=== PATIENT | female | born 1935 | race Caucasian/White ===

== ENCOUNTER 2018-07-13 06:40 | Observation (INO) | payer OTHER ==
[2018-07-13 07:37] LABS: Protime INR 1.15
--- NOTE | 2018-07-13 07:56 | EKG ---
Test Date: 2018-07-13 Test Time: 07:42:02 Blocker Polishing: TEQUILA MEASUREMENT RESULTS: Intervals: Rate: 63 CT: 128 QRSD: 90 QT: 380 QTc: 388 [place]: P: 68 CT: 128 QRS: 45 T: 87 INTERPRETIVE STATEMENTS: Normal sinus rhythm Possible Left atrial enlargement Left ventricular hypertrophy with repolarization abnormality Abnormal ECG Compared to ECG 09/12/2017 06:01:02 No significant changes Electronically Signed On 07-13-18 07:55:23 TSA SCREENER by Anjel Samuel
[2018-07-13 08:08] LABS: Absolute Lymphocytes (CBC) 0.8 K/uL (0.7-4.9); Absolute Monocytes 0.5 K/uL (0.1-1.3); Absolute Neutrophil 6.2 K/uL (1.8-8.0); Basophils % 0.6 % (0-1.3); Eosinophils % 1.6 % (0-4.4); Hematocrit 37.9 % (36.0-45.0); Lymphocytes % 10.5 % (15.3-44.8); MPV 9.4 fL (7.6-11.3); Monocytes % 6.2 % (3.3-12.3)
[2018-07-13] MEDS ORDERED: METOPROLOL TARTRATE 5 MG/5 ML INJ IV ONE (08:11)
[2018-07-13 08:15] LABS: Urine Bacteria <20 /HPF (<20); Urine Culture Reflex Order NOT NEEDED; Urine Mucus 1+ /HPF (NONE SEEN); Urine RBC <5 /HPF (NONE SEEN)
[2018-07-13 08:19] LABS: Albumin 3.9 g/dL (3.4-5.0); Bilirubin Direct 0.2 mg/dL (0-0.2); Bilirubin Total 0.6 mg/dL (0.2-1.0); Magnesium 1.8 mg/dL (1.8-2.4); Potassium 3.8 mmol/L (3.5-5.1); Protein, Total 7.4 g/dL (6.4-8.2); Troponin (Emerg Dept Use Only) 0.09 ng/mL (0.0-0.045)
--- NOTE | 2018-07-13 08:52 | RAD REPORT ---
EXAM DESCRIPTION: RAD - Chest Single View - 07/13/2018 7:25 am CLINICAL HISTORY: Abdominal pain, cough COMPARISON: September 2017 TECHNIQUE: AP portable chest image was obtained 0715 hours . FINDINGS: Chronic interstitial lung disease is present. Findings are more prominent in the left base . No convincing evidence for pneumonia. Heart and vasculature are normal. No measurable pleural effus ion and no pneumothorax. No acute bony abnormality seen. No acute aortic findings suspected. IMPRESSION: Chronic interstitial lung disease similar to comparison. No acute chest finding seen.
--- NOTE | 2018-07-13 09:06 | RAD REPORT ---
EXAM DESCRIPTION: CT - Angio Aorta For Dissection - 07/13/2018 8:41 am CLINICAL HISTORY: Abdominal pain, abdominal distention, chest pain, productive cough COMPARISON: Chest films same date, CT abdomen and pelvis September 2017 TECHNIQUE: Dynamically enhanced 3 mm thick images of the chest, abdomen, and upper pelvis were obtai telma during administration of approximately 150mL Isovue 370 IV contrast. Sagittal and coronal reconst ruction images were generated using MIP and reviewed. Exam utilizes a protocol to evaluate entire cou rse of the aorta. All CT scans are performed using dose optimization technique as appropriate and may include automated exposure control or mA/KV adjustment according to patient size. FINDINGS: Aorta is normal in diameter with no dissection or other acute aortic findings. Reconstruct ion images show no significant findings. Aortic atherosclerotic calcifications are present without si gnificant luminal narrowing. No displaced calcifications. No periaortic mass or lymphadenopathy seen. Pulmonary arteries are normal as well. No cardiomegaly, pericardial thickening or pericardial effusio n. Scarring changes are present in the lung parenchyma. Interstitial markings are minimally prominent. T here is bronchial wall thickening present throughout the chest. This is worse in each lung base. No b ronchial occlusion or intraluminal mass identifiable. Minimal pleural calcification noted. No pleural based mass. A few small areas of alveolar nodular opacification present in the lower lung delacruz. No abnormal mediastinal or hilar mass or lymphadenopathy seen. No chest wall mass or abnormal axillar y lymphadenopathy. Single renal artery supply each kidney. Atherosclerotic calcifications are present without significan t luminal narrowing. Atherosclerotic changes cause approximately 50% stenosis at the celiac artery or igin. No stenosis of the superior mesenteric artery seen. Inferior mesenteric artery is patent. The mid and upper thoracic esophagus appears thickened. No asymmetric or focal mass seen. CT imaging is limited in assessment. The liver, spleen and pancreas show no acute or suspicious findings. Cholecystectomy clips are presen t. Biliary tree is not outside of normal range for a post cholecystectomy patient. A 16 millimeter lo w-density left adrenal mass does not meet strict adenoma criteria. However, size has not changed in 1 0 months since the September 2017 study. Minimal nodularity of the right adrenal gland also stable. Renal function is symmetric. There is no hydronephrosis or pyelonephritis. In the medial upper pole r ight kidney there is a lobulated heterogeneous 2.7 centimeter mass. This shows low-density attenuatio n as well as enhancement. This area is isodense on the earlier CT study. Findings are suspicious for a renal cell carcinoma. No acute bowel finding. Urinary bladder is contracted around a Fulton catheter. Calcified uterine fibr oids are present. No suspicious ovarian finding. No free air, free fluid or inflammatory stranding. Prominent disc and bony degenerative changes are present. No pathologic bone process seen. IMPRESSION: Heterogeneous enhancing 2.7 centimeter mass upper pole right kidney suspicious for renal cell carcinoma. Aortic atherosclerotic calcifications without aneurysm, dissection or acute aortic finding. No pulmon santo artery abnormality. Bronchitis findings are present with very minimal pneumonitis or alveolitis findings in the lower roxana g delacruz. Circumferential wall thickening of the upper and midthoracic esophagus without clearly defined mass. CT imaging is limited in assessment of the esophagus. Stable small adrenal mass most likely an incidental adenoma. No other significant findings on chest, abdomen and upper pelvis examination.
[2018-07-13] MEDS ORDERED: IPRATROPIUM BROM 0.5MG/2.5ML ONE (09:29)
[2018-07-13] MEDS ORDERED: NA CHLORIDE 0.9% 1,000 ML ONE (09:29)
[2018-07-13] MEDS ORDERED: HYDRALAZINE HCL 20 MG/ML VIAL ONE (09:29)
[2018-07-13] MEDS ORDERED: ALBUTEROL 2.5 MG/3 ML NEB SOL ONE (09:29)
[2018-07-13] MEDS ORDERED: ENOXAPARIN 60 MG/0.6 ML SQ ONE (09:55)
--- NOTE | 2018-07-13 10:06 | ER ---
Nurse's Notes [facility] Name: Heidy Saucedo Age: 83 yrs Sex: Female : 1935 Arrival Date: 07/13/2018 Time: 06:45 Bed 4 Private MD: Diagnosis: Essential (primary) hypertension;Right renal mass;Bronchitis, not specified as acute or chronic;Renal Insufficiency;Elevated troponin Presentation: 07/13 06:56 Presenting complaint: daughter states last night pt was vomiting up mucous and became bb anxious then her blood pressure went up they called EMS and had her checked and was told her vital signs were normal but this morning she started having abdominal pain, bad gas, sore throat and diarrhea and her blood pressure is high again. Transition of care: patient was not received from another setting of care. Onset of symptoms was July 12, 2018. Risk Assessment: Do you want to hurt yourself or someone else? Patient reports no desire to harm self or others. Initial Sepsis Screen: Does the patient meet any 2 criteria? No. Patient's initial sepsis screen is negative. Does the patient have a suspected source of infection? No. Patient's initial sepsis screen is negative. Care prior to arrival: None. 06:56 Method Of Arrival: Ambulatory bb 06:56 Acuity: KRISTAL 3 bb Historical: - Allergies: 07:00 No Known Allergies; bb - Home Meds: 07:00 fenofibrate 145 mg daily Oral [Active]; glipizide 2.5 mg Oral tr24 once daily [Active]; bb lisinopril 20 mg Oral tab 1 tab twice a day [Active]; sertraline 50 mg Oral tab 1 tab once daily [Active]; Synthroid 100 mcg Oral tab 1 tab once daily [Active]; metoprolol tartrate 25 mg Oral tab 1 tab 2 times per day [Active]; Vit D2 1.25 mg daily [Active]; pantoprazole 40 mg oral TbEC 1 tab once daily [Active]; - PMHx: 07:00 High Cholesterol; Hypertension; Hypothyroidism; bb - PSHx: 07:00 goiter removed; Cholecystectomy; bb - Immunization history:: Adult Immunizations up to date, Pneumococcal vaccine is up to date, Flu vaccine is up to date. - Social history:: Smoking status: Patient/guardian denies using tobacco. - Ebola Screening: : No symptoms or risks identified at this time. Screenin:10 Abuse screen: Denies threats or abuse. Nutritional screening: No deficits noted. bb Tuberculosis screening: No symptoms or risk factors identified. Fall Risk Secondary diagnosis (15 points) impaired mobility, IV access (20 points). Ambulatory Aid- None/Bed Rest/Nurse Assist (0 pts). Gait- Weak (10 pts.). Mental Status- Oriented to own ability (0 pts). Total Alonso Fall Scale indicates High Risk Score (45 or more points). Fall prevention measures have been instituted. Side Rails Up X 2 Family Present and informed to notify staff if the need to leave the bedside As available patient and family educated on Fall Prevention Program and Strategies. Assessment: 07:10 General: Appears in no apparent distress. uncomfortable, slender, Behavior is calm, bb cooperative. Pain: Complains of pain in abdomen. Neuro: Level of Consciousness is awake, alert, obeys commands, Oriented to person, place, time, situation. Cardiovascular: Heart tones S1 S2 present Capillary refill < 3 seconds Patient's skin is warm and dry. Pulses are all present. Edema is absent. Respiratory: Respiratory effort is even, unlabored, Respiratory pattern is regular, Breath sounds are clear bilaterally. GI: Abdomen is round Bowel sounds hyperactive in right upper quadrant, left upper quadrant, right lower quadrant and left lower quadrant Abd is soft X 4 quads Abdomen is tender to palpation X 4 quads. : No signs and/or symptoms were reported regarding the genitourinary system. Derm: Skin is dry, Skin is normal, Skin temperature is warm. Musculoskeletal: Circulation, motion, and sensation intact. 07:52 Reassessment: No changes from previously documented assessment. Patient is alert, bb oriented x 3, equal unlabored respirations, skin warm/dry/pink. awaiting diagnostic results family at bedside. 08:24 Reassessment: Patient appears in no apparent distress at this time. No changes from la1 previously documented assessment. Patient and/or family updated on plan of care and expected duration. Pain level reassessed. Patient is alert, oriented x 3, equal unlabored respirations, skin warm/dry/pink. 10:21 Reassessment: Patient appears in no apparent distress at this time. No changes from la1 previously documented assessment. Patient and/or family updated on plan of care and expected duration. Pain level reassessed. Patient is alert, oriented x 3, equal unlabored respirations, skin warm/dry/pink. Vital Signs: 07:00 BP 211 / 97; Pulse 83; Resp 16 S; Temp 98.5(O); Pulse Ox 96% on R/A; Weight 50.8 kg bb (R); Height 5 ft. 2 in. (157.48 cm) (R); Pain 7/10; 07:52 BP 226 / 81; Pulse 66; Resp 16 S; Pulse Ox 97% on R/A; bb 08:24 BP 225 / 81; Pulse 62; Resp 16; Pulse Ox 98% on R/A; la1 09:35 BP 240 / 87; Pulse 61; Resp 16; Pulse Ox 98% on R/A; la1 09:43 BP 217 / 82; Pulse 78; Resp 18; Pulse Ox 98% on R/A; la1 09:57 BP 197 / 72; Pulse 77; Resp 16; Pulse Ox 97% on R/A; la1 11:24 BP 157 / 67; Pulse 72; Resp 16; Pulse Ox 98% on R/A; la1 07:00 Body Mass Index 20.48 (50.80 kg, 157.48 cm) ED Course: 06:45 Patient arrived in ED. es 06:50 Cathy Lee FNP-C is PHCP. snw 06:51 Juventino Maciel MD is Attending Physician. snw 06:58 Triage completed. bb 07:00 Arm band placed on Patient placed in an exam room, on a stretcher, on pulse oximetry. bb Family accompanied patient. 07:04 Xochitl Rouse, ROCIO is Primary Nurse. bb 07:10 Patient has correct armband on for positive identification. Placed in gown. Bed in low bb position. Call light in reach. Side rails up X2. Adult w/ patient. ekg monitor tech on. Pulse ox on. NIBP on. Warm blanket given. 07:20 Initial lab(s) drawn, by me, sent to lab. Inserted saline lock: 20 gauge in left bb forearm, using aseptic technique. Blood collected. 07:22 X-ray completed. Portable x-ray completed in exam room. Patient tolerated procedure jb2 well. 07:23 XRAY Chest (1 view) In Process Unspecified. EDMS 07:30 Fulton cath inserted, using sterile technique, 16 Fr., by me, balloon inflated, to bb gravity drainage, urine specimen collected. Patient tolerated well. 07:42 Lab(s) recollected, by me, sent to lab. bb 07:42 EKG done, by civil geotechnical engineer. reviewed by Cathy MATIAS. at1 07:49 Urine collected: Fulton catheter specimen, clear, Amount Returned: 50mL EKG done, by EKG lc tech. 08:29 CT completed. Patient tolerated procedure well. Patient moved to CT via stretcher. jg6 Patient moved back from CT. 08:41 CT Aorta for Dissection In Process Unspecified. EDMS 10:04 Leta Posey MD is Hospitalizing Provider. snw 13:30 No provider procedures requiring assistance completed. Patient admitted, IV remains in ss place. Administered Medications: 08:00 CANCELLED (other intervention used): Metoprolol TARTRATE (Lopressor) 50 mg PO once snw 08:08 Drug: Metoprolol 5 mg Route: IVP; Site: left forearm; bb 08:23 Follow up: Response: No adverse reaction; Blood pressure is unchanged la1 09:34 Drug: NS 0.9% 1000 ml Route: IV; Rate: 75 ml/hr; Site: left antecubital; la1 10:12 Follow up: IV Status: Infusion continued upon admission la1 09:34 Drug: hydrALAZINE 10 mg Route: IV; Rate: calculated rate; Site: left antecubital; la1 10:13 Follow up: IV Status: Completed infusion la1 10:13 Follow up: Response: Blood pressure is lowered la1 09:34 Drug: Albuterol - atroVENT (3:1) (2.5 mg - 0.5 mg) 3 ml Route: Nebulizer; la1 10:12 Follow up: Response: No adverse reaction la1 10:12 Drug: Lovenox 50 mg Route: Sub-Q; Site: right lower abdomen; la1 10:20 Follow up: Response: No adverse reaction la1 Output: 13:35 Urine: 700ml (F[place]); Total: 700ml. Outcome: 10:06 Decision to Hospitalize by Provider. snw 13:47 Admitted to [facility] accompanied by tech, via stretcher, room 413, Report called to raymundo Mathur RN 13:47 Condition: good 13:47 Instructed on the need for admit. 13:49 Patient left the ED. Signatures: Dispatcher [employer] EDCathy Mora, EDGE ROLLER-C EDGE ROLLER-Csnw Kiarra Gama Jesse jb2 Ballard, Brenda, RN RN Shima Wyatt RN RN Sindhu Chacon, director security risk management EKG Tat1 Wili Oconnor RN RN la1 Asuncion Foley j6 Corrections: (The following items were deleted from the chart) 08:40 08:39 In radiology for Abdomen Pelvis Wo Con+CT.RAD.BRZ. EDMS EDMS
--- NOTE | 2018-07-13 10:07 | EDPHYS ---
Physician Documentation [facility] Name: Heidy Saucedo Age: 83 yrs Sex: Female : 1935 Arrival Date: 07/13/2018 Time: 06:45 Bed 4 Private MD: Juventino Lu HPI: 07/13 07:59 This 83 yrs old Female presents to ER via Ambulatory with complaints of High snw Blood Pressure, Diarrhea, Sore Throat, Abdominal Pain. 07:59 The patient has elevated blood pressure and discovered this long standing. Onset: The snw symptoms/episode began/occurred gradually, 2 week(s) ago. Associated signs and symptoms: Pertinent positives: abdominal pain. Historical: - Allergies: 07:00 No Known Allergies; bb - Home Meds: 07:00 fenofibrate 145 mg daily Oral [Active]; glipizide 2.5 mg Oral tr24 once daily [Active]; bb lisinopril 20 mg Oral tab 1 tab twice a day [Active]; sertraline 50 mg Oral tab 1 tab once daily [Active]; Synthroid 100 mcg Oral tab 1 tab once daily [Active]; metoprolol tartrate 25 mg Oral tab 1 tab 2 times per day [Active]; Vit D2 1.25 mg daily [Active]; pantoprazole 40 mg oral TbEC 1 tab once daily [Active]; - PMHx: 07:00 High Cholesterol; Hypertension; Hypothyroidism; bb - PSHx: 07:00 goiter removed; Cholecystectomy; bb - Immunization history:: Adult Immunizations up to date, Pneumococcal vaccine is up to date, Flu vaccine is up to date. - Social history:: Smoking status: Patient/guardian denies using tobacco. - Ebola Screening: : No symptoms or risks identified at this time. ROS: 07:42 Constitutional: Negative for fever, chills, and weight loss, Eyes: Negative for injury, snw pain, redness, and discharge, ENT: Negative for injury, pain, and discharge, Neck: Negative for injury, pain, and swelling, Cardiovascular: Negative for chest pain, palpitations, and edema, Respiratory: Negative for shortness of breath, cough, wheezing, and pleuritic chest pain. 07:42 Back: Negative for injury and pain. 07:42 MS/Extremity: Negative for injury and deformity, Skin: Negative for injury, rash, and discoloration, Neuro: Negative for headache, weakness, numbness, tingling, and seizure. 07:42 Abdomen/GI: Positive for nausea, abdominal cramps, abdominal distension. 07:42 : Positive for urinary symptoms, urinary frequency, small amounts. Exam: 07:29 Head/Face: Normocephalic, atraumatic. Eyes: Pupils equal round and reactive to light, snw extra-ocular motions intact. Lids and lashes normal. Conjunctiva and sclera are non-icteric and not injected. Cornea within normal limits. Periorbital areas with no swelling, redness, or edema. ENT: Nares patent. No nasal discharge, no septal abnormalities noted. Tympanic membranes are normal and external auditory canals are clear. Oropharynx with no redness, swelling, or masses, exudates, or evidence of obstruction, uvula midline. Mucous membranes moist. Neck: Trachea midline, no thyromegaly or masses palpated, and no cervical lymphadenopathy. Supple, full range of motion without nuchal rigidity, or vertebral point tenderness. No Meningismus. Chest/axilla: Normal chest wall appearance and motion. Nontender with no deformity. No lesions are appreciated. Cardiovascular: Regular rate and rhythm with a normal S1 and S2. No gallops, murmurs, or rubs. Normal PMI, no JVD. No pulse deficits. 07:29 Constitutional: The patient appears alert, awake, frail, listless. 07:29 Respiratory: the patient does not display signs of respiratory distress, Respirations: normal, Breath sounds: decreased breath sounds, that are moderate, + upper airway congestion. harsh non-productive cough. 07:29 Abdomen/GI: Inspection: distension, that is moderate, Bowel sounds: hyperactive, Palpation: abdomen is soft and non-tender. Vital Signs: 07:00 BP 211 / 97; Pulse 83; Resp 16 S; Temp 98.5(O); Pulse Ox 96% on R/A; Weight 50.8 kg bb (R); Height 5 ft. 2 in. (157.48 cm) (R); Pain 7/10; 07:52 BP 226 / 81; Pulse 66; Resp 16 S; Pulse Ox 97% on R/A; bb 08:24 BP 225 / 81; Pulse 62; Resp 16; Pulse Ox 98% on R/A; la1 09:35 BP 240 / 87; Pulse 61; Resp 16; Pulse Ox 98% on R/A; la1 09:43 BP 217 / 82; Pulse 78; Resp 18; Pulse Ox 98% on R/A; la1 09:57 BP 197 / 72; Pulse 77; Resp 16; Pulse Ox 97% on R/A; la1 11:24 BP 157 / 67; Pulse 72; Resp 16; Pulse Ox 98% on R/A; la1 07:00 Body Mass Index 20.48 (50.80 kg, 157.48 cm) bb MDM: 06:51 Patient medically screened. snw 10:06 Data reviewed: vital signs, nurses notes. Data interpreted: Pulse oximetry: on room air snw is 97 %. Interpretation: normal. Counseling: I had a detailed discussion with the patient and/or guardian regarding: the historical points, exam findings, and any diagnostic results supporting the discharge/admit diagnosis, the presence of at least one elevated blood pressure reading (>120/80) during this emergency department visit, lab results, radiology results, the need for further work-up and treatment in the hospital. Physician consultation: Leta Posey MD was called at 10:08, was contacted at 10:08, regarding admission, to the telemetry unit. 07/13 06:57 Order name: Basic Metabolic Panel; Complete Time: 08:25 snw 07/13 06:57 Order name: CBC with Diff; Complete Time: 08:10 snw 07/13 06:57 Order name: LFT's; Complete Time: 08:25 snw 07/13 06:57 Order name: Magnesium; Complete Time: 08:25 snw 07/13 06:57 Order name: NT PRO-BNP; Complete Time: 08:25 snw 07/13 06:57 Order name: PT-INR; Complete Time: 08:06 snw 07/13 06:57 Order name: Troponin (emerg Dept Use Only); Complete Time: 08:25 snw 07/13 06:57 Order name: XRAY Chest (1 view); Complete Time: 09:08 snw 07/13 06:57 Order name: Lipase; Complete Time: 08:25 snw 07/13 06:57 Order name: Urine Culture snw 07/13 06:57 Order name: Urine Microscopic Only; Complete Time: 08:25 snw 07/13 07:37 Order name: Urine Dipstick--Ancillary (enter results); Complete Time: 13:34 ag 07/13 08:27 Order name: CT Aorta for Dissection; Complete Time: 09:08 snw 07/13 06:57 Order name: EKG; Complete Time: 06:58 snw 07/13 06:57 Order name: Cardiac monitoring; Complete Time: 06:58 snw 07/13 06:57 Order name: EKG - Nurse/Tech; Complete Time: 07:44 snw 07/13 06:57 Order name: IV Saline Lock; Complete Time: 07:44 snw 07/13 06:57 Order name: Labs collected and sent; Complete Time: 06:58 snw 07/13 06:57 Order name: O2 Per Protocol; Complete Time: 06:59 snw 07/13 06:57 Order name: O2 Sat Monitoring; Complete Time: 06:59 snw 07/13 06:57 Order name: Fulton; Complete Time: 07:44 snw 07/13 06:57 Order name: Urine Dipstick-Ancillary (obtain specimen); Complete Time: 07:44 snw 07/13 09:34 Order name: Echo w/ Doppler w 07/13 07:35 Order name: Labs - recollect needed; Complete Time: 07:44 ag Administered Medications: 08:00 CANCELLED (other intervention used): Metoprolol TARTRATE (Lopressor) 50 mg PO once snw 08:08 Drug: Metoprolol 5 mg Route: IVP; Site: left forearm; 08:23 Follow up: Response: No adverse reaction; Blood pressure is unchanged la07 20:34 Drug: NS 0.9% 1000 ml Route: IV; Rate: 75 ml/hr; Site: left antecubital; la1 10:12 Follow up: IV Status: Infusion continued upon admission la07 20:34 Drug: hydrALAZINE 10 mg Route: IV; Rate: calculated rate; Site: left antecubital; la1 10:13 Follow up: IV Status: Completed infusion la1 10:13 Follow up: Response: Blood pressure is lowered la1 09:34 Drug: Albuterol - atroVENT (3:1) (2.5 mg - 0.5 mg) 3 ml Route: Nebulizer; la1 10:12 Follow up: Response: No adverse reaction la1 10:12 Drug: Lovenox 50 mg Route: Sub-Q; Site: right lower abdomen; la1 10:20 Follow up: Response: No adverse reaction la1 Disposition: 15:04 Co-signature as Attending Physician, Juventino Maciel MD I agree with the assessment and chasidy plan of care. Disposition: 07/13/18 10:06 Hospitalization ordered by Leta Posey for Inpatient Admission. Preliminary diagnosis are Essential (primary) hypertension, Right renal mass, Bronchitis, not specified as acute or chronic, Renal Insufficiency, Elevated troponin. - Bed requested for Telemetry/MedSurg (observation). - Status is Inpatient Admission. ss - Condition is Stable. - Problem is an acute exacerbation. - Symptoms have worsened. UTI on Admission? No Signatures: Dispatcher [employer] EDAZ Juventino Maciel MD MD cha Therrien, Shelly, WOOD DOWEL MACHINE OPERATOR-C WOOD DOWEL MACHINE OPERATOR-Csnw Xochitl Rouse RN RN bb Shima Auguste RN RN ss Wili Oconnor RN RN la1 Dunia Veloz ag Corrections: (The following items were deleted from the chart) 08:00 07:57 Metoprolol TARTRATE (Lopressor) 50 mg PO once ordered. snw snw 08:40 08:15 Abdomen Pelvis Wo Con+CT.RAD.BRZ ordered. [facility] EDAZ 11:02 10:06 Hospitalization Ordered by Leta Posey MD for Inpatient Admission. Preliminary snw diagnosis is Essential (primary) hypertension; Right renal mass; Bronchitis, not specified as acute or chronic; Renal Insufficiency; Elevated troponin. Bed requested for Telemetry/MedSurg (Inpatient). Status is Inpatient Admission. Condition is Stable. Problem is an acute exacerbation. Symptoms have worsened. UTI on Admission? No. snw 12:04 11:02 07/13/2018 10:06 Hospitalization Ordered by Leta Posey MD for Inpatient ag Admission. Preliminary diagnosis is Essential (primary) hypertension; Right renal mass; Bronchitis, not specified as acute or chronic; Renal Insufficiency; Elevated troponin. Bed requested for Telemetry/MedSurg (observation). Status is Inpatient Admission. Condition is Stable. Problem is an acute exacerbation. Symptoms have worsened. UTI on Admission? No. snw 13:49 12:04 07/13/2018 10:06 Hospitalization Ordered by Leta Posey MD for Inpatient ss Admission. Preliminary diagnosis is Essential (primary) hypertension; Right renal mass; Bronchitis, not specified as acute or chronic; Renal Insufficiency; Elevated troponin. Bed requested for Telemetry/MedSurg (observation). Status is Inpatient Admission. Condition is Stable. Problem is an acute exacerbation. Symptoms have worsened. UTI on Admission? No. ag
[2018-07-13 13:31] LABS: Urine Blood NEGATIVE (NEG); Urine Glucose NEGATIVE (NEG); Urine Protein TRACE (NEG); Urine Specific Gravity 1.015 (1.005-1.030)
[2018-07-13] MEDS ORDERED: ONDANSETRON 4 MG/2 ML VIAL IV PRN (14:02)
[2018-07-13] MEDS ORDERED: ACETAMINOPHEN 500 MG TAB PO PRN (14:02)
[2018-07-13] MEDS ORDERED: ENOXAPARIN 40 MG/0.4 ML SQ SCH (15:00)
--- NOTE | 2018-07-13 15:28 | ECHO ---
HEIGHT: 5 ft 2 in WEIGHT: 112 lb 0 oz DATE OF STUDY: 07/13/[address]: Cathy Lee [employer]JECT MANAGER-BC 2-DIMENSIONAL: YES M.MODE: YES DOPPLER: YES COLOR FLOW: YES TDS: PORTABLE: DEFINITY: BUBBLE STUDY: DIAGNOSIS: HYPERTENSION/ ELEVATED TROP CARDIAC HISTORY: CATHERIZATION: NO SURGERY: NO PROSTHETIC VALVE: NO PACEMAKER: NO MEASUREMENTS (cm) DIASTOLIC (NORMALS) SYSTOLIC (NORMALS) IVSd 1.1 (0.6-1.2) LA Diam 3.7 (1.9-4.0) LVEF 60% LVIDd 4.0 (3.5-5.7) LVIDs 2.7 (2.0-3.5) %FS 31% LVPWd 1.3 (0.6-1.2) Ao Diam 2.2 (2.0-3.7) 2 DIMENSIONAL ASSESSMENT: RIGHT ATRIUM: NORMAL LEFT ATRIUM: NORMAL RIGHT VENTRICLE: NORMAL LEFT VENTRICLE: NORMAL TRICUSPID VALVE: NORMAL MITRAL VALVE: MITRAL ANNULAR CALCIFICATION PULMONIC VALVE: NORMAL AORTIC VALVE: NORMAL PERICARDIAL EFFUSION: NONE AORTIC ROOT: NORMAL LEFT VENTRICULAR WALL MOTION: NORMAL DOPPLER/COLOR FLOW: MILD AORTIC REGURGITATION, MITRAL REGURGITATION, AND TRICUSPID REGURGITATION. NORMAL RIGHT VENTRICULAR SYSTOLIC PRESSURE. COMMENTS: NORMAL LEFT VENTRICULAR EJECTION FRACTION. MITRAL ANNULAR CALCIFICATION. MILD AORTIC REGURGITATION, MITRAL REGURGITATION, AND TRICUSPID REGURGITATION. TECHNOLOGIST: YESSI MIRELES
[2018-07-13] MEDS: INSULIN -REGULAR HUMAN 50 UNIT/0.5 ML ML SQ SCH ×2 (16:02→21:00)
[2018-07-13] MEDS ORDERED: DRISDOL (VITAMIN D=ERGOCALCIFEROL) 50000 UNIT CAP PO SCH (17:00)
[2018-07-13] MEDS: ENOXAPARIN 30 MG/0.3 ML SQ SCH (18:25)
--- NOTE | 2018-07-13 18:54 | P.HP ---
Certification for Inpatient Patient admitted to: Observation With expected LOS: <2 Midnights Practitioner: I am a practitioner with admitting privileges, knowledge of patient current condition, hospital course, and medical plan of care. Services: Services provided to patient in accordance with Admission requirements found in Title 42 Section 412.3 of the Code of Federal Regulations Patient History Date of Service: 07/13/18 Primary Care Provider: Ion Poole Reason for admission: Cough and abdominal pain History of Present Illness: This is an 83-year-old female with history of diabetes mellitus type 2, hypertension and hyperlipidemia admitted for cough and abdominal pain. Per daughter at bedside, patient having cough and abdominal pain similar to symptoms 1 year ago. At that time was suggested they do an echo, but patient left prior to getting an echocardiogram done. Daughter stated that patient's blood pressure was elevated to 200s at home, which is scared her and she called the EMS to bring patient to the hospital. In the ED, patient was found to have elevated blood pressure in the 200s, she received metoprolol and hydralazine along with IV fluids. Patient did receive contrast -per ER doctor, risks and benefits were discussed with patient's family as patient did have elevated creatinine but a CT chest was deemed necessary to rule out aortic dissection. At the time of my exam, patient was alert oriented, in no acute distress, hemodynamically stable. Her blood pressure was a remained elevated at 200s systolic. Allergies No Known Allergies Allergy (Verified 09/12/17 08:09) Home Medications: Ergocalciferol (Vitamin D2) [Vitamin D2] 50,000 unit PO Q7D 07/13/18 Fenofibrate [Tricor] 145 mg PO DAILY 07/13/18 Levothyroxine [Synthroid] 50 mcg PO [id number] 07/13/18 Lisinopril [Prinivil] 1 tab PO BID 07/13/18 Metoprolol Tartrate [Lopressor] 0.5 tab PO BID 07/13/18 Pantoprazole [Protonix Tab] 40 mg PO DAILY 07/13/18 Sertraline HCl 0.5 tab PO BEDTIME 07/13/18 glipiZIDE [Glipizide] 0.5 tab PO DAILY 07/13/18 - Past Medical/Surgical History Has patient received pneumonia vaccine in the past: Yes Diabetic: Yes -: HTN -: hyperlipidemia -: hypothyrodism -: goiter removal -: cholecystectomy - Family History Father -: Hypertension - Social History Smoking Status: Never smoker Alcohol use: No CD- Drugs: No Caffeine use: No Place of Residence: Home Review of Systems 10-point ROS is otherwise unremarkable Physical Examination - Vital Signs Temperature: 98.3 F Blood Pressure: 180/69 Pulse: 84 Respirations: 28 Pulse Ox (%): 95 - Physical Exam General: Alert, In no apparent distress, Oriented x3 HEENT: Atraumatic, PERRLA, Mucous membr. moist/pink, EOMI, Sclerae nonicteric Neck: Supple, 2+ carotid pulse no bruit, No LAD, Without JVD or thyroid abnormality Respiratory: Clear to auscultation bilaterally, Normal air movement Cardiovascular: Regular rate/rhythm, Normal S1 S2 Gastrointestinal: Normal bowel sounds, No tenderness Musculoskeletal: No tenderness Integumentary: No rashes Neurological: Normal gait, Normal speech, Normal strength at 5/5 x4 extr, Normal tone, Normal affect Lymphatics: No axilla or inguinal lymphadenopathy - Studies Laboratory Data (last 24 hrs) 07/13/18 07:40: Sodium 139, Potassium 3.8, BUN 28 H, Creatinine 1.31 H, Glucose 91, Magnesium 1.8, Total Bilirubin 0.6, AST 48 H, ALT 30, Alkaline Phosphatase 61, Lipase 272 07/13/18 07:15: PT 13.6 H, INR 1.15 07/13/18 07:15: WBC 7.6, Hgb 12.9, Hct 37.9, Plt Count 208 Assessment and Plan - Plan This is an 83-year-old female with: Hypertensive urgency Cough Pain Abdominal pain Acute on chronic kidney disease, stage III Right renal mass, suspicious for renal cell carcinoma, incidental finding Admit patient to the floor for observation, tele monitoring. Echo ordered, pending CT negative for a dissection though there was a 2.7 cm mass noted on the right upper pole of the kidney, suspicious for renal cell carcinoma. Patient will need outpatient followup for further evaluation of this mass. Daughter states that patient sees Dr. Parker in [place] and would like to start there after being discharged from here. Patient blood pressure has been elevated. Unsure if this is secondary to the renal mass versus pain cardiac-related. Will evaluate with an echo. Restart home medications and treat with p.r.n. meds for her blood pressure. DVT prophylaxis: Lovenox GI prophylaxis: None Diet: Heart healthy Disposition: Admit patient to the floor for observation, tele monitoring. Will likely discharge home in the next 24 hr. - Advance Directives Does patient have a Living Will: Yes Does patient have a Durable POA for Healthcare: Yes Physician Review: Patient Assessed, Agree with Above Assessment and Plan Time Spent Managing Pts Care (In Minutes): 55
[2018-07-13] MEDS ORDERED: SERTRALINE HCL 100 MG TAB PO SCH (21:00)
[2018-07-13] MEDS: LISINOPRIL 20 MG TAB PO SCH (21:33)
[2018-07-13] MEDS: METOPROLOL TAR 25 MG TAB PO SCH (21:34)
[2018-07-14] MEDS: HYDRALAZINE HCL 20 MG/ML VIAL IV PRN ×2 (05:40→12:23)
[2018-07-14] MEDS ORDERED: LEVOTHYROXINE SOD 0.05 MG TABLET PO SCH (06:00)
[2018-07-14 06:44] LABS: Absolute Lymphocytes (CBC) 1.1 K/uL (0.7-4.9); Absolute Monocytes 0.5 K/uL (0.1-1.3); Basophils % 0.3 % (0-1.3); Eosinophils % 0.5 % (0-4.4); Hematocrit 36.7 % (36.0-45.0); Lymphocytes % 14.6 % (15.3-44.8); MPV 9.3 fL (7.6-11.3); Monocytes % 6.1 % (3.3-12.3); RBC Red Blood Cell Count 4.06 M/uL (3.86-4.86)
[2018-07-14 07:06] LABS: Albumin 3.7 g/dL (3.4-5.0); Bilirubin Total 0.7 mg/dL (0.2-1.0); Potassium 3.5 mmol/L (3.5-5.1); Protein, Total 7.1 g/dL (6.4-8.2)
[2018-07-14] MEDS: INSULIN -REGULAR HUMAN 50 UNIT/0.5 ML ML SQ SCH ×2 (07:30→11:30)
[2018-07-14] MEDS ORDERED: PANTOPRAZOLE 40MG TABLET PO SCH (07:30)
[2018-07-14] MEDS: ENOXAPARIN 30 MG/0.3 ML SQ SCH (08:29)
[2018-07-14] MEDS: METOPROLOL TAR 25 MG TAB PO SCH (08:30)
[2018-07-14] MEDS: LISINOPRIL 20 MG TAB PO SCH (08:30)
[2018-07-14] MEDS ORDERED: FENOFIBRATE 160 MG TAB PO SCH (09:00)
[2018-07-14] MEDS ORDERED: POTASSIUM CL SA 10 MEQ TAB PO ONE (09:00)
[2018-07-14] MEDS ORDERED: FENOFIBRATE 145 MG TABLET PO SCH (09:00)
== END 2018-07-14 13:56 | disposition home or self-care (01) ==
LOC: ER 06:40 → ERHOLD 12:03 → 4TH 13:32
PROVIDERS: ADMIT Family Medicine; ATTEND Family Medicine
DX: I16.0 Hypertensive urgency (principal); I12.9 Hypertensive chronic kidney disease with stage 1 through stage 4 chronic kidney disease, or unspecified chronic kidney disease; N18.3 Chronic kidney disease, stage 3 (moderate); E11.22 Type 2 diabetes mellitus with diabetic chronic kidney disease; N17.9 Acute kidney failure, unspecified; E78.5 Hyperlipidemia, unspecified; R10.9 Unspecified abdominal pain; R05 Cough; E03.9 Hypothyroidism, unspecified; N28.89 Other specified disorders of kidney and ureter
CPT/HCPCS: 36415; 51702; 71045; 71275; 74175; 80048; 80053; 80076; 81003; 81015; 82962; 83690; 83735; 83880; 84484; 85025; 85610; 87086; 87088; 93005; 93306; 94640; 94760; 96365; 96372; 96375; 99285; G0378; J0360; J1650; J7030; Q9967

== ENCOUNTER 2018-11-02 18:38 | Observation (INO) | payer OTHER ==
[2018-11-02] MEDS ORDERED: LEVALBUTEROL 1.25 MG/3 ML NEB ONE (19:32)
[2018-11-02 19:50] LABS: Absolute Lymphocytes (CBC) 0.9 K/uL (0.7-4.9); Absolute Monocytes 0.3 K/uL (0.1-1.3); Absolute Neutrophil 3.8 K/uL (1.8-8.0); Basophils % 0.7 % (0-1.3); Eosinophils % 1.9 % (0-4.4); Hematocrit 37.5 % (36.0-45.0); Lymphocytes % 17.9 % (15.3-44.8); MPV 9.6 fL (7.6-11.3); Monocytes % 5.5 % (3.3-12.3); RBC Red Blood Cell Count 4.15 M/uL (3.86-4.86)
--- NOTE | 2018-11-02 19:52 | RAD REPORT ---
EXAM DESCRIPTION: Lucrecia Cat And Lat (2 Views)11/02/2018 7:43 pm CLINICAL HISTORY: Cough COMPARISON: July 2018 FINDINGS: Mild reticulonodular opacities are present within the right lung base. Left lung appears clear of acute infiltrate. The heart is mildly enlarged IMPRESSION: Mild reticulonodular opacities within the right lung base may indicate an atypical infec tion. Follow-up chest film in a couple weeks recommended for re-evaluation
[2018-11-02] MEDS ORDERED: Levofloxacin 750mg IV 750 MG/150 ML BAG IV ONE (20:36)
[2018-11-02 20:45] LABS: Potassium 3.9 mmol/L (3.5-5.1); Troponin (Emerg Dept Use Only) 0.04 ng/mL (0.0-0.045)
--- NOTE | 2018-11-02 21:42 | ER ---
Nurse's Notes [facility] Name: Heidy Saucedo Age: 83 yrs Sex: Female : 1935 Arrival Date: 11/02/2018 Time: 18:40 Bed 26 Private MD: Diagnosis: Dyspnea, unspecified;Cough;Possible Pneumonia;Uncontrolled hypertension Presentation: 11/02 18:47 Presenting complaint: Productive cough x 2 days. Denies pain/fever. Transition of care: hb patient was not received from another setting of care. Resp Distress? No respiratory distress is noted at this time. Onset of symptoms was November 01, 2018. Risk Assessment: Do you want to hurt yourself or someone else? Patient reports no desire to harm self or others. Care prior to arrival: None. 18:47 Method Of Arrival: Ambulatory 18:47 Acuity: KRISTAL 3 hb 19:00 Initial Sepsis Screen: Does the patient meet any 2 criteria? No. Patient's initial ca1 sepsis screen is negative. Does the patient have a suspected source of infection? Yes: Productive cough/pneumonia. Historical: - Allergies: 18:50 No Known Allergies; hb - Home Meds: 18:50 metoprolol tartrate 25 mg Oral tab 1 tab 2 times per day [Active]; lisinopril 20 mg hb Oral tab 1 tab twice a day [Active]; hydralazine 10 mg Oral tab three times a day [Active]; fenofibrate 145 mg daily Oral [Active]; glipizide 2.5 mg Oral tab once daily [Active]; pantoprazole 40 mg Oral TbEC 1 tab once daily [Active]; sertraline 50 mg Oral tab 1 tab once daily [Active]; Synthroid 100 mcg Oral tab 1 tab once daily [Active]; Vit D2 1.25 mg daily [Active]; - PMHx: 18:50 High Cholesterol; Hypertension; Hypothyroidism; hb - PSHx: 18:50 goiter removed; Cholecystectomy; hb - Immunization history:: Adult Immunizations up to date. - Social history:: Smoking status: Patient/guardian denies using tobacco. - Ebola Screening: : No symptoms or risks identified at this time. - Family history:: not pertinent. - Hospitalizations: : No recent hospitalization is reported. Screenin:00 Abuse screen: Denies threats or abuse. Denies injuries from another. Nutritional ca1 screening: No deficits noted. Tuberculosis screening: No symptoms or risk factors identified. Fall Risk None identified. Assessment: 19:00 General: Appears in no apparent distress. comfortable, Behavior is calm, cooperative, ca1 appropriate for age. Pain: Denies pain. Neuro: Level of Consciousness is awake, alert, obeys commands, Oriented to person, place, time, situation. Cardiovascular: Heart tones S1 S2 present Capillary refill < 3 seconds Patient's skin is warm and dry. Respiratory: Reports cough that is productive, since 2 days ago Airway is patent Respiratory effort is even, unlabored, Respiratory pattern is regular, symmetrical, Breath sounds are clear bilaterally. GI: Abdomen is flat, non-distended, Bowel sounds present X 4 quads. Abd is soft and non tender X 4 quads. : No deficits noted. No signs and/or symptoms were reported regarding the genitourinary system. EENT: No deficits noted. No signs and/or symptoms were reported regarding the EENT system. Derm: Skin is intact, is fragile, Skin is pink, warm \T\ dry. Musculoskeletal: Circulation, motion, and sensation intact. Capillary refill < 3 seconds. 20:00 Reassessment: Patient appears in no apparent distress at this time. Patient and/or ca1 family updated on plan of care and expected duration. Pain level reassessed. Patient is alert, oriented x 3, equal unlabored respirations, skin warm/dry/pink. 20:50 Reassessment: Patient appears in no apparent distress at this time. Patient is alert, ca1 oriented x 3, equal unlabored respirations, skin warm/dry/pink. Patient states feeling better. 21:41 Reassessment: Patient appears in no apparent distress at this time. Patient and/or ca1 family updated on plan of care and expected duration. Pain level reassessed. Patient is alert, oriented x 3, equal unlabored respirations, skin warm/dry/pink. 22:35 Reassessment: Patient appears in no apparent distress at this time. Patient is alert, ca1 oriented x 3, equal unlabored respirations, skin warm/dry/pink. Pending Room assignment. 22:54 Reassessment: called report. Nurse will call back. ca1 23:19 Reassessment: Patient appears in no apparent distress at this time. Called for report. ca1 Will call back. Vital Signs: 18:48 BP 233 / 97; Pulse 72; Resp 16; Temp 97.8; Pulse Ox 96% on R/A; Pain 0/10; hb 20:51 BP 185 / 70; Pulse 69; Resp 22; Pulse Ox 98% on R/A; ca1 21:09 BP 176 / 72; Pulse 67; Resp 17 S; Pulse Ox 99% on R/A; ca1 21:41 BP 185 / 69; Pulse 64; Resp 18 S; Pulse Ox 98% on R/A; ca1 22:10 BP 188 / 90; Pulse 60; Resp 17 S; Pulse Ox 99% on R/A; ca1 22:36 BP 201 / 61; Pulse 61; Resp 18 S; Pulse Ox 99% on R/A; ca1 22:54 BP 207 / 66; Pulse 64; Resp 19 S; Pulse Ox 100% on R/A; ca1 23:15 BP 205 / 69; Pulse 64; Resp 20 S; Pulse Ox 99% on R/A; ca1 23:19 BP 193 / 78; Pulse 63; Resp 17 S; Pulse Ox 100% on R/A; ca1 ED Course: 18:40 Patient arrived in ED. mr 18:48 Triage completed. hb 18:50 Arm band placed on left wrist. hb 19:00 Patient has correct armband on for positive identification. Placed in gown. Bed in low ca1 position. Call light in reach. Side rails up X 1. v belt inspector on. Pulse ox on. NIBP on. Warm blanket given. 19:02 Calvin Diaz MD is Attending Physician. rn 19:07 Fritz Szymanski, ROCIO is Primary Nurse. mg2 19:16 Attending Physician role handed off by Calvin Diaz MD chasidy 19:16 Juventino Maciel MD is Attending Physician. chasidy 19:17 Attending Physician role handed off by Juventino Maciel MD rn 19:17 Calvin Diaz MD is Attending Physician. rn 19:25 Inserted saline lock: 20 gauge in right antecubital area, using aseptic technique. ca1 ,using aseptic technique. by Mamie Szymanski RN Blood collected. 19:41 XRAY Chest Pa And Lat (2 Views) In Process Unspecified. EDMS 20:17 Lab(s) recollected, by me, sent to lab. ca1 21:40 Akil Shen MD is Hospitalizing Provider. rn 22:54 No provider procedures requiring assistance completed. Patient admitted, IV remains in ca1 place. Administered Medications: 20:02 Drug: Xopenex 1.25 mg Route: Inhalation; mg2 21:24 Follow up: Response: No adverse reaction; Marked relief of symptoms mg2 20:23 Drug: LevaQUIN 750 mg Volume: 150 ml; Route: IVPB; Infused Over: 90 mins; Site: right ca1 antecubital; 22:42 Follow up: Response: No adverse reaction; IV Status: Completed infusion ca1 Outcome: 21:41 Decision to Hospitalize by Provider. rn 23:31 Admitted to Tele accompanied by tech, family with patient, via wheelchair, room 428, ca1 with chart, Report called to Sully Multani RN 23:31 Condition: stable 23:31 Instructed on the need for admit. 23:43 Patient left the ED. ca1 Signatures: Dispatcher [employer] Juventino Maciel MD MD cha Rivera, Mary mr Nieto, Roman, MD MD rn Baxter, Heather, RN RN Fritz Szymanski RN RN mg2 Helena Clark RN RN ca1
--- NOTE | 2018-11-02 21:42 | EDPHYS ---
Physician Documentation [facility] Name: Heidy Saucedo Age: 83 yrs Sex: Female : 1935 Arrival Date: 11/02/2018 Time: 18:40 Bed 26 Private MD: ED Physician Calvin Diaz HPI: 11/02 19:17 This 83 yrs old Female presents to ER via Ambulatory with complaints of rn Cough, Congestion, High Blood Pressure. 19:17 The patient or guardian reports cough. Onset: The symptoms/episode began/occurred 2 rn day(s) ago. Severity of symptoms: At their worst the symptoms were mild, in the emergency department the symptoms are unchanged. Modifying factors: The symptoms are alleviated by nothing, the symptoms are aggravated by. Associated signs and symptoms: Pertinent negatives: chest pain, fever. The patient has experienced a previous episode. Reports 2 days of deep cough, denies chest pain or sob, no fever, reports BP running high, last time ahd this combination had bronchitis. No hx of heart failure. Recently increased metoprolol. No hemoptysis.. Historical: - Allergies: 18:50 No Known Allergies; hb - Home Meds: 18:50 metoprolol tartrate 25 mg Oral tab 1 tab 2 times per day [Active]; lisinopril 20 mg hb Oral tab 1 tab twice a day [Active]; hydralazine 10 mg Oral tab three times a day [Active]; fenofibrate 145 mg daily Oral [Active]; glipizide 2.5 mg Oral tab once daily [Active]; pantoprazole 40 mg Oral TbEC 1 tab once daily [Active]; sertraline 50 mg Oral tab 1 tab once daily [Active]; Synthroid 100 mcg Oral tab 1 tab once daily [Active]; Vit D2 1.25 mg daily [Active]; - PMHx: 18:50 High Cholesterol; Hypertension; Hypothyroidism; hb - PSHx: 18:50 goiter removed; Cholecystectomy; hb - Immunization history:: Adult Immunizations up to date. - Social history:: Smoking status: Patient/guardian denies using tobacco. - Ebola Screening: : No symptoms or risks identified at this time. - Family history:: not pertinent. - Hospitalizations: : No recent hospitalization is reported. ROS: 19:17 Constitutional: Negative for fever, chills, and weight loss, Eyes: Negative for injury, rn pain, redness, and discharge, Neck: Negative for injury, pain, and swelling, Cardiovascular: Negative for chest pain, palpitations Respiratory: + cough, negative for sob Abdomen/GI: Negative for abdominal pain, nausea, vomiting, diarrhea, and constipation, MS/Extremity: Negative for injury and deformity, Skin: Negative for injury, rash, and discoloration, Neuro: Negative for headache, weakness, numbness, tingling, and seizure. Exam: 19:17 Constitutional: This is a well developed, well nourished patient who is awake, alert, rn and in no acute distress. Head/Face: Normocephalic, atraumatic. Eyes: Pupils equal round and reactive to light, extra-ocular motions intact. Lids and lashes normal. Conjunctiva and sclera are non-icteric and not injected. Cornea within normal limits. Periorbital areas with no swelling, redness, or edema. ENT: MMM, no oral swelling, no stridor Neck: Trachea midline, no thyromegaly or masses palpated, and no cervical lymphadenopathy. Supple, full range of motion without nuchal rigidity, or vertebral point tenderness. No meningismus Cardiovascular: Regular rate and rhythm. No pulse deficits. Respiratory: Coarse bilateral breath sounds, no wheezing, no retractions Abdomen/GI: soft, non-tender Skin: Warm, dry with normal turgor. Normal color with no rashes, no lesions, and no evidence of cellulitis. MS/ Extremity: Pulses equal, no cyanosis. Neurovascular intact. Full, normal range of motion. Equal circumference. Neuro: Awake and alert, GCS 15, oriented to person, place, and situation. Cranial nerves II-XII grossly intact. Motor strength 5/5 in all extremities. Sensory grossly intact. Vital Signs: 18:48 BP 233 / 97; Pulse 72; Resp 16; Temp 97.8; Pulse Ox 96% on R/A; Pain 0/10; hb 20:51 BP 185 / 70; Pulse 69; Resp 22; Pulse Ox 98% on R/A; ca1 21:09 BP 176 / 72; Pulse 67; Resp 17 S; Pulse Ox 99% on R/A; ca1 21:41 BP 185 / 69; Pulse 64; Resp 18 S; Pulse Ox 98% on R/A; ca1 22:10 BP 188 / 90; Pulse 60; Resp 17 S; Pulse Ox 99% on R/A; ca1 22:36 BP 201 / 61; Pulse 61; Resp 18 S; Pulse Ox 99% on R/A; ca1 22:54 BP 207 / 66; Pulse 64; Resp 19 S; Pulse Ox 100% on R/A; ca1 23:15 BP 205 / 69; Pulse 64; Resp 20 S; Pulse Ox 99% on R/A; ca1 23:19 BP 193 / 78; Pulse 63; Resp 17 S; Pulse Ox 100% on R/A; ca1 MDM: 19:02 Patient medically screened. rn 21:39 Differential Diagnosis: Bronchitis Influenza Upper Respiratory Infection Viral Syndrome rn Pneumonia Other CHF, pulmonary edema. Data reviewed: vital signs, nurses notes, lab test result(s), EKG, radiologic studies, plain films, and as a result, I will admit patient. Counseling: I had a detailed discussion with the patient and/or guardian regarding: the historical points, exam findings, and any diagnostic results supporting the discharge/admit diagnosis, lab results, radiology results, the need for further work-up and treatment in the hospital. Admission orders: after a detailed discussion of the patient's condition and case, the admit orders are written by me. 11/02 19:10 Order name: Blood Culture Adult (2) rn 11/02 19:10 Order name: BMP; Complete Time: 21:03 rn 11/02 19:10 Order name: CBC with Diff; Complete Time: 19:59 rn 11/02 19:10 Order name: NT PRO-BNP; Complete Time: 21:03 rn 11/02 19:10 Order name: Troponin (emerg Dept Use Only); Complete Time: 21:03 rn 11/02 19:10 Order name: Flu; Complete Time: 21:03 rn 11/02 20:01 Order name: Procalcitonin; Complete Time: 21:12 EDMS 11/02 22:40 Order name: CBC with Automated Diff EDMS 11/02 22:40 Order name: CBC with Automated Diff EDMS 11/02 22:40 Order name: Comprehensive Metabolic Panel EDMS 11/02 22:40 Order name: Comprehensive Metabolic Panel EDMS 11/02 22:40 Order name: Lactate EDMS 11/02 22:40 Order name: Lactate EDMS 11/02 19:10 Order name: XRAY Chest Pa And Lat (2 Views); Complete Time: 19:59 rn 11/02 19:10 Order name: EKG; Complete Time: 19:11 rn 11/02 19:10 Order name: Cardiac monitoring; Complete Time: 19:39 rn 11/02 19:10 Order name: EKG - Nurse/Tech; Complete Time: 19:39 rn 11/02 19:10 Order name: IV Saline Lock; Complete Time: 19:39 rn 11/02 19:10 Order name: Labs collected and sent; Complete Time: 19:39 rn 11/02 19:10 Order name: O2 Per Protocol; Complete Time: 19:39 rn 11/02 22:40 Order name: Heart Healthy [facility] 11/02 22:40 Order name: Lipid Profile [facility] 11/02 22:40 Order name: Lipid Profile [facility] 11/02 22:40 Order name: Magnesium [facility] 11/02 22:40 Order name: Magnesium [facility] 11/02 22:40 Order name: Procalcitonin [facility] 11/02 22:41 Order name: Procalcitonin [facility] 11/02 19:10 Order name: O2 Sat Monitoring; Complete Time: 19:39 rn 11/02 19:52 Order name: Misc. Order: recollect needed on all labs per lab; Complete Time: 20:20 ss Administered Medications: 20:02 Drug: Xopenex 1.25 mg Route: Inhalation; mg2 21:24 Follow up: Response: No adverse reaction; Marked relief of symptoms mg2 20:23 Drug: LevaQUIN 750 mg Volume: 150 ml; Route: IVPB; Infused Over: 90 mins; Site: right ca1 antecubital; 22:42 Follow up: Response: No adverse reaction; IV Status: Completed infusion ca1 Disposition: 11/02/18 21:41 Hospitalization ordered by Akil Shen for Observation. Preliminary diagnosis are Dyspnea, unspecified, Cough, Possible Pneumonia, Uncontrolled hypertension. - Bed requested for Telemetry/MedSurg (observation). - Status is Observation. ca1 - Condition is Stable. - Problem is new. - Symptoms have improved. UTI on Admission? No Signatures: Dispatcher [employer] EDPR Jaylene Saucedo RN RN mw Nieto, Roman, MD MD rn Smirch, Shelby, RN RN Kae Yoon RN RN hb Gardose, Michele, RN RN mg2 Helena Clark RN RN ca1 Corrections: (The following items were deleted from the chart) 19:53 19:11 Procalcitonin+C.LAB.BRZ ordered. EDMS EDMS 22:45 21:41 Hospitalization Ordered by Akil Shen MD for Observation. Preliminary mw diagnosis is Dyspnea, unspecified; Cough; Possible Pneumonia; Uncontrolled hypertension. Bed requested for Telemetry/MedSurg (observation). Status is Observation. Condition is Stable. Problem is new. Symptoms have improved. UTI on Admission? No. rn 23:43 22:45 11/02/2018 21:41 Hospitalization Ordered by Akil Shen MD for Observation. ca1 Preliminary diagnosis is Dyspnea, unspecified; Cough; Possible Pneumonia; Uncontrolled hypertension. Bed requested for Telemetry/MedSurg (observation). Status is Observation. Condition is Stable. Problem is new. Symptoms have improved. UTI on Admission? No. mw
[2018-11-02] MEDS ORDERED: ACETAMINOPHEN 500 MG TAB PO PRN (22:36)
[2018-11-02] MEDS ORDERED: ONDANSETRON 4 MG/2 ML VIAL IV PRN (22:36)
[2018-11-02] MEDS ORDERED: NA CHLORIDE 0.9% 1,000 ML IV SCH (23:00)
[2018-11-03 03:48] LABS: Urine Appearance CLEAR; Urine Bilirubin NEGATIVE (NEG); Urine Blood NEGATIVE (NEG); Urine Color YELLOW; Urine Glucose NEGATIVE (NEG); Urine Protein NEGATIVE (NEG); Urine Urobilinogen 0.2 mg/dL (0.2-1.0)
[2018-11-03 04:19] LABS: Urine Microscopic Reflex NO UMIC
[2018-11-03 05:04] LABS: Absolute Lymphocytes (CBC) 0.8 K/uL (0.7-4.9); Absolute Monocytes 0.3 K/uL (0.1-1.3); Basophils % 0.3 % (0-1.3); Eosinophils % 1.5 % (0-4.4); Hematocrit 31.9 % (36.0-45.0); MPV 9.2 fL (7.6-11.3); Monocytes % 7.2 % (3.3-12.3); RBC Red Blood Cell Count 3.54 M/uL (3.86-4.86)
[2018-11-03 05:30] LABS: Albumin 3.7 g/dL (3.4-5.0); Bilirubin Total 0.5 mg/dL (0.2-1.0); Magnesium 1.6 mg/dL (1.8-2.4); Potassium 4.3 mmol/L (3.5-5.1); Protein, Total 6.8 g/dL (6.4-8.2)
[2018-11-03] MEDS ORDERED: LEVOTHYROXINE SOD 0.05 MG TABLET PO SCH (06:00)
[2018-11-03] MEDS ORDERED: HYDRALAZINE HCL 20 MG/ML VIAL IV ONE (06:20)
[2018-11-03] MEDS ORDERED: PANTOPRAZOLE 40MG TABLET PO SCH (06:30)
[2018-11-03] MEDS ORDERED: DRISDOL (VITAMIN D=ERGOCALCIFEROL) 50000 UNIT CAP PO SCH (07:00)
--- NOTE | 2018-11-03 08:39 | EKG ---
Test Date: 2018-11-02 Test Time: 19:50:23 Piano Case Maker: RYANT MEASUREMENT RESULTS: Intervals: Rate: 74 CO: 134 QRSD: 88 QT: 366 QTc: 406 [place]: P: 75 CO: 134 QRS: 40 T: 80 INTERPRETIVE STATEMENTS: Normal sinus rhythm Possible Left atrial enlargement Left ventricular hypertrophy with repolarization abnormality Abnormal ECG Compared to ECG 07/13/2018 07:42:02 No significant changes Electronically Signed On 11-03-18 08:36:44 CDT by Jeff Torres
[2018-11-03] MEDS ORDERED: FENOFIBRATE 160 MG TAB PO SCH (09:00)
[2018-11-03] MEDS ORDERED: METOPROLOL TAR 50 MG TAB PO SCH (09:00)
[2018-11-03] MEDS ORDERED: ENOXAPARIN 30 MG/0.3 ML SQ SCH (09:00)
[2018-11-03] MEDS ORDERED: CEFTRIAXONE 1 GM/NS 50 ML 1 GM/50 ML BAG IV SCH (09:00)
[2018-11-03] MEDS ORDERED: LISINOPRIL 20 MG TAB PO SCH (09:00)
[2018-11-03] MEDS ORDERED: CEFTRIAXONE/SWI 1gm 1 GM/10 ML SYR IV SCH (09:00)
[2018-11-03] MEDS ORDERED: AZITHROMYCIN IV 500 MG in NA CHLORIDE 0.9% 250 ML IVPB SCH (09:00)
[2018-11-03] MEDS ORDERED: glipiZIDE 5 MG TAB PO SCH (09:00)
--- NOTE | 2018-11-03 09:36 | RAD REPORT ---
EXAM DESCRIPTION: CT - Thorax Wo Con - 11/03/2018 9:00 am CLINICAL HISTORY: cough COMPARISON: July 2018 TECHNIQUE: Computed axial tomography of the chest was obtained. Contrast was not requested. All CT scans are performed using dose optimization technique as appropriate and may include automated exposure control or mA/KV adjustment according to patient size. FINDINGS: The evaluation of mediastinum, latisha and vessels is limited secondary to lack of IV contras t administration. A 10 millimeter ground-glass nodule has developed within the left lower lobe. Mild tree-in-bud opacit ies are present within the lingula, left lower and upper lobes and right lower lobe. No mediastinal or hilar lymphadenopathy is seen. A pleural effusion is not present. A pericardial effusion is not seen. Unchanged right thyroid nodule. Left adrenal adenoma is suspected IMPRESSION: Mild bilateral tree-in-bud opacities may indicate an atypical infection 10 millimeter ground-glass nodule within the left lower lobe most likely is infectious. However, it i s recommended that the patient a followup CT chest in 3 months for re-evaluation
[2018-11-03] MEDS: HYDRALAZINE HCL 10 MG TABLET PO SCH ×2 (09:38→15:20)
--- NOTE | 2018-11-03 09:57 | P.HP ---
Certification for Inpatient Patient admitted to: Inpatient With expected LOS: >2 Midnights Patient will require the following post-hospital care: None Practitioner: I am a practitioner with admitting privileges, knowledge of patient current condition, hospital course, and medical plan of care. Services: Services provided to patient in accordance with Admission requirements found in Title 42 Section 412.3 of the Code of Federal Regulations Patient History Date of Service: 11/02/18 Reason for admission: Atypical pneumonia History of Present Illness: Patient is an 83-year-old female who came into the hospital with a pneumonia. Patient has been having cough and congestion for the last couple of days. Patient has been getting gradually worse, so patient came into the hospital for further evaluation. In the emergency room patient was found to have an atypical pneumonia on chest x-ray. Patient also had acute renal insufficiency along with a significantly elevated blood pressure. Patient was admitted to the hospital for further treatment of the atypical pneumonia. Allergies No Known Allergies Allergy (Verified 09/12/17 08:09) Home Medications: Ergocalciferol (Vitamin D2) [Vitamin D2] 1 cap PO SEECOM 11/03/18 Fenofibrate [Tricor] 145 mg PO DAILY 11/03/18 Hydralazine [Apresoline] 10 mg PO TID 11/03/18 Levothyroxine [Synthroid] 50 mcg PO [id number] 11/03/18 Lisinopril [Prinivil] 20 mg PO BID 11/03/18 Metoprolol Tartrate [Lopressor] 25 mg PO BID 11/03/18 Pantoprazole Sodium 40 mg PO DAILY 11/03/18 Sertraline HCl 50 mg PO BEDTIME 11/03/18 glipiZIDE [Glipizide] 2.5 mg PO DAILY 11/03/18 - Past Medical/Surgical History Has patient received pneumonia vaccine in the past: Yes Diabetic: Yes -: HTN -: hyperlipidemia -: hypothyrodism -: NIDDM -: goiter removal -: cholecystectomy - Family History Father Medical History: Hypertension - Social History Smoking Status: Never smoker Alcohol use: No CD- Drugs: No Caffeine use: No Place of Residence: Home Review of Systems 10-point ROS is otherwise unremarkable Physical Examination - Vital Signs Temperature: 97.3 F Blood Pressure: 228/100 Pulse: 64 Respirations: 20 Pulse Ox (%): 98 - Physical Exam General: Alert, In no apparent distress, Oriented x3 HEENT: Atraumatic, PERRLA, Mucous membr. moist/pink, EOMI, Sclerae nonicteric Neck: Supple, 2+ carotid pulse no bruit, No LAD, Without JVD or thyroid abnormality Respiratory: Other ( Coarse breath sounds with some expiratory wheezing) Cardiovascular: Regular rate/rhythm, Normal S1 S2 Gastrointestinal: Normal bowel sounds, Soft and benign, Non-distended, No tenderness Musculoskeletal: No clubbing, No swelling, No tenderness Integumentary: No rashes Neurological: Normal gait, Normal speech, Normal strength at 5/5 x4 extr, Normal tone, Sensation intact, Cranial nerves 3-12 intact, Normal affect Lymphatics: No axilla or inguinal lymphadenopathy - Studies Laboratory Data (last 24 hrs) 11/02/18 20:16: Sodium 141, Potassium 3.9, BUN 31 H, Creatinine 1.36 H, Glucose 103 11/02/18 19:30: WBC 5.1, Hgb 12.8, Hct 37.5, Plt Count 238 Microbiology Data (last 24 hrs): 11/02/18 19:30 Nasopharnyx Influenza Type A Antigen Screen - Final 11/02/18 19:30 Nasopharnyx Influenza Type B Antigen Screen - Final Assessment & Plan - Problems (Diagnosis) (1) Primary atypical pneumonia (PAP) due to Mycoplasma Current Visit: Yes Status: Acute (2) JOHANNA (acute kidney injury) Current Visit: Yes Status: Acute (3) HTN (hypertension) Onset Date: 09/13/17 Current Visit: No Status: Chronic Qualifiers: Hypertension type: essential hypertension Qualified Code(s): I10 - Essential (primary) hypertension (4) Hyperlipemia Onset Date: 09/13/17 Current Visit: No Status: Chronic Qualifiers: Hyperlipidemia type: unspecified Qualified Code(s): E78.5 - Hyperlipidemia , unspecified (5) Hypothyroidism Current Visit: No Status: Chronic Qualifiers: Hypothyroidism type: unspecified Qualified Code(s): E03.9 - Hypothyroidism , unspecified - Plan Plan: 1. Continue with IV antibiotics 2. Awaiting sputum and blood culture; procalcitonin level 3. Repeat chest x-ray in AM 4. Will order CT scan of the chest 5. Monitor blood pressure closely as well as renal function 6. Continue with nebs as needed 7. O2 per protocol 8. Continue with gentle hydration 9. Repeat labs including CBC and renal function in a.m. 10. Outpt follow-up with Pulmonary 11. GI and DVT prophylaxis Discharge Plan: Home Plan to discharge in: 48 Hours - Advance Directives Does patient have a Living Will: Yes Does patient have a Durable POA for Healthcare: Yes - Code Status/Comfort Care Code Status Assessed: No Code Status: Full Code Critical Care: No Time Spent Managing PTS Care (In Minutes): 45
--- NOTE | 2018-11-03 10:37 | P.PN ---
Subjective Date of Service: 11/03/18 Chief Complaint: Atypical pneumonia Pt seen and examined at bedside. Chart reviewed. Case DW with RN and patient at bedside. C/o of right sided Pain near the rib area. Denies sob, CP, fever or chills. Review of Systems 10-point ROS is otherwise unremarkable Physical Examination - Vital Signs Temperature: 97.3 F Blood Pressure: 228/100 Pulse: 64 Respirations: 20 Pulse Ox (%): 98 - Physical Exam General: Alert, In no apparent distress HEENT: Atraumatic, PERRLA, EOMI Neck: Supple, JVD not distended Respiratory: Clear to auscultation bilaterally, Normal air movement Cardiovascular: Regular rate/rhythm, Normal S1 S2 Gastrointestinal: Normal bowel sounds, No tenderness Musculoskeletal: No tenderness Integumentary: No rashes Neurological: Normal speech, Normal tone, Normal affect Lymphatics: No axilla or inguinal lymphadenopathy - Studies Laboratory Data (last 24 hrs) 11/02/18 20:16: Sodium 141, Potassium 3.9, BUN 31 H, Creatinine 1.36 H, Glucose 103 11/02/18 19:30: WBC 5.1, Hgb 12.8, Hct 37.5, Plt Count 238 Microbiology Data (last 24 hrs): 11/02/18 19:30 Nasopharnyx Influenza Type A Antigen Screen - Final 11/02/18 19:30 Nasopharnyx Influenza Type B Antigen Screen - Final Medications List Reviewed: Yes Assessment And Plan - Current Problems (Diagnosis) (1) Pneumonia Onset Date: 09/13/17 Current Visit: No Status: Acute Plan: atypical PNA on the xray and CT chest. h/o of Mycoplasma in the past -Currently on IV rocephin and azithromycin. Will continue -Sputum culture pending -Pulmonology consulted. Reccs Awaiting -CT chest with LLL ground glass nodule most likely Infectious Qualifiers: Pneumonia type: due to unspecified organism Laterality: left Lung location: lower lobe of lung Qualified Code(s): J18.1 - Lobar pneumonia, unspecified organism (2) Chronic renal disease Current Visit: No Status: Chronic Plan: BUN.CR Stable for now Qualifiers: Chronic kidney disease stage: stage 3 (moderate) Qualified Code(s): N18.3 - Chronic kidney disease, stage 3 (moderate) (3) Diabetes mellitus Current Visit: No Status: Chronic Plan: ISS and accu checks Qualifiers: Diabetes mellitus type: type 2 Diabetes mellitus hand profiler insulin use: without fdc use Diabetes mellitus complication status: with other specified complication Qualified Code(s): E11.69 - Type 2 diabetes mellitus with other specified complication (4) HTN (hypertension) Onset Date: 09/13/17 Current Visit: No Status: Chronic Plan: Restarted on home medication Qualifiers: Hypertension type: essential hypertension Qualified Code(s): I10 - Essential (primary) hypertension (5) Hyperlipidemia Current Visit: No Status: Chronic Plan: Restarted on home medication Qualifiers: Hyperlipidemia type: unspecified Qualified Code(s): E78.5 - Hyperlipidemia , unspecified (6) Hypothyroidism Current Visit: No Status: Chronic Plan: Restarted on home medication Qualifiers: Hypothyroidism type: acquired Qualified Code(s): E03.9 - Hypothyroidism, unspecified Discharge Plan: Home Plan to discharge in: 48 Hours - Code Status/Comfort Care Code Status Assessed: Yes Critical Care: No
--- NOTE | 2018-11-03 14:37 | P.SSS ---
Patient History Date of Service: 11/03/18 Reason for admission: Atypical pneumonia History of Present Illness: Patient is an 83-year-old female who came into the hospital with a pneumonia. Patient has been having cough and congestion for the last couple of days. Patient has been getting gradually worse, so patient came into the hospital for further evaluation. In the emergency room patient was found to have an atypical pneumonia on chest x-ray. Patient also had acute renal insufficiency along with a significantly elevated blood pressure. Patient was admitted to the hospital for further treatment of the atypical pneumonia. Allergies No Known Allergies Allergy (Verified 09/12/17 08:09) Home Medications: Ergocalciferol (Vitamin D2) [Vitamin D2] 1 cap PO SEECOM 11/03/18 Fenofibrate [Tricor*] 145 mg PO DAILY 11/03/18 Hydralazine [Apresoline*] 10 mg PO TID 11/03/18 Levothyroxine [Synthroid*] 50 mcg PO [id number] 11/03/18 Lisinopril [Prinivil*] 20 mg PO BID 11/03/18 Metoprolol Tartrate [Lopressor*] 25 mg PO BID 11/03/18 Pantoprazole Sodium 40 mg PO DAILY 11/03/18 Sertraline HCl 50 mg PO BEDTIME 11/03/18 glipiZIDE [Glipizide] 2.5 mg PO DAILY 11/03/18 - Past Medical/Surgical History Has patient received pneumonia vaccine in the past: Yes Diabetic: Yes -: HTN -: hyperlipidemia -: hypothyrodism -: NIDDM -: goiter removal -: cholecystectomy - Family History Father -: Hypertension - Social History Smoking Status: Never smoker Alcohol use: No CD- Drugs: No Caffeine use: No Place of Residence: Home Review of Systems 10-point ROS is otherwise unremarkable Physical Examination - Vital Signs Temperature: 97.1 F Blood Pressure: 158/69 Pulse: 67 Respirations: 20 Pulse Ox (%): 98 - Physical Exam General: Alert, In no apparent distress HEENT: Atraumatic, PERRLA, Mucous membr. moist/pink, EOMI, Sclerae nonicteric Neck: Supple, 2+ carotid pulse no bruit, No LAD, Without JVD or thyroid abnormality Respiratory: Clear to auscultation bilaterally, Normal air movement Cardiovascular: Regular rate/rhythm, Normal S1 S2 Gastrointestinal: Normal bowel sounds, No tenderness Musculoskeletal: No tenderness Integumentary: No rashes Neurological: Normal gait, Normal speech, Normal strength at 5/5 x4 extr, Normal tone, Normal affect Lymphatics: No axilla or inguinal lymphadenopathy - Studies Laboratory Data (last 24 hrs) 11/02/18 20:16: Sodium 141, Potassium 3.9, BUN 31 H, Creatinine 1.36 H, Glucose 103 11/02/18 19:30: WBC 5.1, Hgb 12.8, Hct 37.5, Plt Count 238 Microbiology Data (last 24 hrs): 11/02/18 19:30 Nasopharnyx Influenza Type A Antigen Screen - Final 11/02/18 19:30 Nasopharnyx Influenza Type B Antigen Screen - Final - Diagnosis (Problem(s)) (1) Pneumonia Onset Date: 09/13/17 Current Visit: No Status: Ruled-out Qualifiers: Pneumonia type: due to unspecified organism Laterality: left Lung location: lower lobe of lung Qualified Code(s): J18.1 - Lobar pneumonia, unspecified organism (2) Chronic renal disease Current Visit: No Status: Chronic Qualifiers: Chronic kidney disease stage: stage 3 (moderate) Qualified Code(s): N18.3 - Chronic kidney disease, stage 3 (moderate) (3) Diabetes mellitus Current Visit: No Status: Chronic Qualifiers: Diabetes mellitus type: type 2 Diabetes mellitus maritime guard insulin use: without fdc use Diabetes mellitus complication status: with other specified complication Qualified Code(s): E11.69 - Type 2 diabetes mellitus with other specified complication (4) HTN (hypertension) Onset Date: 09/13/17 Current Visit: No Status: Chronic Qualifiers: Hypertension type: essential hypertension Qualified Code(s): I10 - Essential (primary) hypertension (5) Hyperlipidemia Current Visit: No Status: Chronic Qualifiers: Hyperlipidemia type: unspecified Qualified Code(s): E78.5 - Hyperlipidemia , unspecified (6) Hypothyroidism Current Visit: No Status: Chronic Qualifiers: Hypothyroidism type: acquired Qualified Code(s): E03.9 - Hypothyroidism, unspecified Treatment Summary: Overall during the hospital stay patient stable Overall during the hospital stay patient remained stable patient was initially admitted to the hospital for possible pneumonia secondary to atypical bacterial infection. Chest x-ray initially was concerning for pneumonia. White count and procalcitonin were negative. Patient however was started on IV antibiotics until the sputum culture and pulmonology consultation. Patient also had chest CT ordered from the ER. Patient had chest CT done which was consistent with left lower lobe lung nodule that has been found in the previous CT however just increased in size and most likely come sending for infectious disease. Pulmonology was consulted who recommended that patient most likely does not have any pneumonia in the ground-glass nodule just needs to be followed up in 3 months. At that time pulmonology recommendation was to discharge patient home under stable condition as patient remained afebrile with no elevated white count and no left shift. Patient then was discharged home under stable condition with a diagnosis of upper respiratory infection most likely causing her chronic cough. Patient was asked to follow up with pulmonology in about 1- 2 days post discharge and was asked to make sure she follows up and repeat her CT in about 3 months. Patient and family both demonstrate understanding and does were discharged home under stable condition. Postop - Disposition Disposition: ROUTINE DISCHARGE Condition: GOOD Diet: Regular Activity: Ad renetta
[2018-11-03] MEDS ORDERED: cloNIDine HCl 0.1 MG TAB PO ONE (16:33)
[2018-11-03] MEDS ORDERED: SERTRALINE HCL 100 MG TAB PO SCH ×2 (21:00)
[2018-11-04] MEDS ORDERED: LEVOTHYROXINE SOD 0.05 MG TABLET PO SCH (06:00)
== END 2018-11-03 18:46 | disposition home or self-care (01) ==
LOC: ER 18:38 → OBSVTOIN 23:16 → ERHOLD 23:16 → INTOOBSV 23:16 → 4TH 23:35
PROVIDERS: ADMIT Hospitalist; ATTEND Hospitalist
DX: J06.9 Acute upper respiratory infection, unspecified (principal); R91.1 Solitary pulmonary nodule; E78.5 Hyperlipidemia, unspecified; I12.9 Hypertensive chronic kidney disease with stage 1 through stage 4 chronic kidney disease, or unspecified chronic kidney disease; E11.22 Type 2 diabetes mellitus with diabetic chronic kidney disease; N18.3 Chronic kidney disease, stage 3 (moderate); E03.9 Hypothyroidism, unspecified
CPT/HCPCS: 36415; 71046; 71250; 80048; 80053; 80061; 81003; 83605; 83735; 83880; 84145; 84484; 85025; 87040; 87804; 93005; 94760; 96365; 96366; 99285; G0378; J0360; J0456; J0696; J1650; J7030

== ENCOUNTER 2020-08-27 13:05 | Emergency (ER) | payer OTHER ==
[2020-08-27] MEDS ORDERED: HYDROCODONE/APAP 5/325 MG TAB ONE (18:20)
--- NOTE | 2020-08-27 18:29 | EDPHYS ---
Physician Documentation [facility] Name: Heidy Saucedo Age: 85 yrs Sex: Female : 1935 Arrival Date: 08/27/2020 Time: 13:07 Bed 2 Private MD: Juventino Lu HPI: 08/27 17:55 This 85 yrs old Female presents to ER via Ambulatory with complaints of Fall cp Injury. 17:55 The patient or guardian complains of decreased range of motion, deformity, an injury, cp pain, that is acute. left shoulder. Context: The problem was sustained outdoors, resulted from a fall, while walking, The patient experiences decreased range of motion, The patient notes a deformity, an anterior fullness. Onset: The symptoms/episode began/occurred today. 17:55 Associated signs and symptoms: The patient has no apparent associated signs or cp symptoms. Treatment prior to arrival includes: no previous treatment. Historical: - Allergies: 13:17 unknown anisiea; jd3 - Home Meds: 13:25 lisinopril 20 mg Oral tab 1 tab twice a day [Active]; clonidine HCl 0.1 mg Oral tab 1 jd3 tab as needed [Active]; Vitamin D Oral [Active]; Pepcid 20 mg Oral tab [Active]; pantoprazole 40 mg oral TbEC 1 tab 2 times per day [Active]; fenofibrate 145 mg daily Oral [Active]; Synthroid 50 mcg oral tab 1 tab once daily [Active]; sertraline 100 mg oral tab 0.5 tab nightly [Active]; amlodipine 10 mg tab 1 tab once daily [Active]; Iron CR 65 mg Oral [Active]; - PMHx: 13:17 High Cholesterol; Hypothyroidism; Hypertension; jd3 17:40 Dementia; aa5 - PSHx: 13:17 Cholecystectomy; goiter removed; jd3 - Immunization history:: Adult Immunizations up to date. - Social history:: Smoking status: Patient denies any tobacco usage or history of. ROS: 18:00 MS/extremity: Positive for injury or acute deformity, decreased range of motion, pain, cp tenderness, of the left shoulder. 18:00 Eyes: Negative for injury, pain, redness, and discharge. cp 18:00 Constitutional: Negative for fever, poor PO intake. 18:00 Neck: Negative for pain with movement, pain at rest, stiffness. 18:00 Cardiovascular: Negative for chest pain, palpitations. 18:00 Respiratory: Negative for cough, shortness of breath, wheezing. 18:00 Abdomen/GI: Negative for abdominal pain, nausea, vomiting, and diarrhea. 18:00 Back: Negative for pain at rest, pain with movement. 18:00 Neuro: Negative for altered mental status, loss of consciousness, syncope, weakness. 18:00 All other systems are negative. Exam: 18:10 Head/Face: Normocephalic, atraumatic. cp 18:10 Constitutional: The patient appears in no acute distress, alert, awake, non-diaphoretic, non-toxic, well developed, frail. 18:10 Neck: C-spine: vertebral tenderness, is not appreciated, crepitus, is not appreciated. 18:10 Chest/axilla: Inspection: normal, Palpation: is normal, no crepitus, no tenderness. 18:10 Cardiovascular: Rate: normal, Rhythm: regular. 18:10 Respiratory: the patient does not display signs of respiratory distress, Respirations: normal, no use of accessory muscles, no retractions, labored breathing, is not present, Breath sounds: are clear throughout, no decreased breath sounds. 18:10 Abdomen/GI: Inspection: abdomen appears normal, Palpation: abdomen is soft and non-tender, in all quadrants. 18:10 Back: pain, is absent, ROM is normal. 18:10 Musculoskeletal/extremity: Extremities: grossly normal except: noted in the left shoulder: decreased ROM, deformity, pain, tenderness, Pulses: noted to be 2+ in the left radial artery, the left shoulder Severe pain noted. 18:10 Neuro: Orientation: to person, place \T\ time. Mentation: is normal, Sensation: is normal. Vital Signs: 13:17 BP 190 / 85; Pulse 83; Resp 17 S; Temp 97.3(TE); Pulse Ox 97% on R/A; Weight 45.36 kg jd3 (R); Height 5 ft. 2 in. (157.48 cm) (R); Pain 10/10; 18:15 BP 188 / 73; Pulse 73; Resp 16 S; Pulse Ox 99% on R/A; aa5 19:20 BP 166 / 99; Pulse 80; Resp 16 S; Pulse Ox 100% on R/A; aa5 13:17 Body Mass Index 18.29 (45.36 kg, 157.48 cm) jd3 MDM: 17:42 Patient medically screened. [facility] 18:00 Differential diagnosis: contusion, fracture, dislocation, multiple trauma. cp 18:19 ED course: Unable to review patient's profile on [employer] prescription monitor website due cp to no internet connection at this time. 18:28 Data reviewed: vital signs, nurses notes, radiologic studies, plain films. cp 18:28 Test interpretation: by ED physician or midlevel provider: plain radiologic studies. cp Counseling: I had a detailed discussion with the patient and/or guardian regarding: the historical points, exam findings, and any diagnostic results supporting the discharge/admit diagnosis, radiology results, the need for outpatient follow up, for definitive care, a orthopedic surgeon, to return to the emergency department if symptoms worsen or persist or if there are any questions or concerns that arise at home. Response to treatment: the patient's symptoms have markedly improved after treatment, and as a result, I will discharge patient. ED course: VSS. Pain improved with meds. Patient placed in sling for comfort and support. Will discharge to home for continued monitoring. 08/27 13:57 Order name: Humerus Left [facility] Administered Medications: 18:15 Drug: HYDROcodone-acetaminophen 5 mg-325 mg 1 tabs Route: PO; aa5 19:25 Follow up: Response: No adverse reaction; Pain is decreased aa5 Disposition: 08/27/20 18:29 Discharged to Home. Impression: 2-part displaced fracture of surgical neck of left humerus. - Condition is Stable. - Discharge Instructions: Humerus Fracture Treated With Immobilization. - Prescriptions for Tylenol- Codeine #3 300-30 mg Oral Tablet - take 1 tablet by ORAL route every 6 hours As needed; 20 tablet. - Medication Reconciliation Form, Thank You Letter, Antibiotic Education, Prescription Opioid Use form. - Follow up: Fuentes Dahl MD; When: 1 - 2 days; Reason: Recheck today's complaints. - Problem is new. - Symptoms have improved. Addendum: 08/29/2020 07:02 Co-signature as Attending Physician, Juventino Maciel MD I agree with the assessment and c lacy plan of care. Signatures: Dispatcher [employer] [facility] Juventino Maciel MD MD cha Calderon, Audri RN RN aa5 Juventino Linda PA PA cp Antunez, Elena, RN RN Dc Arrieta RN RN jd3 Corrections: (The following items were deleted from the chart) 08/27 13:57 13:20 Elbow Left 3 View+RAD.RAD.BRZ ordered. EDMS EDMS 13:57 13:20 Shoulder Left 2 View+RAD.RAD.BRZ ordered. EDMS EDMS 19:30 18:29 08/27/2020 18:29 Discharged to Home. Impression: 2-part displaced fracture of ea surgical neck of left humerus. Condition is Stable. Forms are Medication Reconciliation Form, Thank You Letter, Antibiotic Education, Prescription Opioid Use. Follow up: Fuentes Dahl; When: 1 - 2 days; Reason: Recheck today's complaints. Problem is new. Symptoms have improved. cp
--- NOTE | 2020-08-27 18:29 | ER ---
Nurse's Notes [facility] Name: Heidy Saucedo Age: 85 yrs Sex: Female : 1935 Arrival Date: 08/27/2020 Time: 13:07 Bed 2 Private MD: Diagnosis: 2-part displaced fracture of surgical neck of left humerus Presentation: 08/27 13:14 Chief complaint: Patient states: "fall and landed on left arm. denies hit to head, no jd3 LOC.". Coronavirus screen: At this time, the client does not indicate any symptoms associated with coronavirus-19. Ebola Screen: Patient negative for fever greater than or equal to 101.5 degrees Fahrenheit, and additional compatible Ebola Virus Disease symptoms. Initial Sepsis Screen: Does the patient meet any 2 criteria? No. Patient's initial sepsis screen is negative. Does the patient have a suspected source of infection? No. Patient's initial sepsis screen is negative. Risk Assessment: Do you want to hurt yourself or someone else? Patient reports no desire to harm self or others. Onset of symptoms was August 27, 2020. 13:14 Method Of Arrival: Ambulatory jd3 13:14 Acuity: KRISTAL 3 jd3 Historical: - Allergies: 13:17 unknown anisiea; jd3 - Home Meds: 13:25 lisinopril 20 mg Oral tab 1 tab twice a day [Active]; clonidine HCl 0.1 mg Oral tab 1 jd3 tab as needed [Active]; Vitamin D Oral [Active]; Pepcid 20 mg Oral tab [Active]; pantoprazole 40 mg oral TbEC 1 tab 2 times per day [Active]; fenofibrate 145 mg daily Oral [Active]; Synthroid 50 mcg oral tab 1 tab once daily [Active]; sertraline 100 mg oral tab 0.5 tab nightly [Active]; amlodipine 10 mg tab 1 tab once daily [Active]; Iron CR 65 mg Oral [Active]; - PMHx: 13:17 High Cholesterol; Hypothyroidism; Hypertension; jd3 17:40 Dementia; aa5 - PSHx: 13:17 Cholecystectomy; goiter removed; jd3 - Immunization history:: Adult Immunizations up to date. - Social history:: Smoking status: Patient denies any tobacco usage or history of. Assessment: 17:40 General: Appears uncomfortable, Behavior is calm, cooperative. Pain: Complains of pain aa5 in left upper arm Unable to use pain scale. Does not appear to understand pain scale. FLACC scale score is 6 out of 10. Neuro: Level of Consciousness is awake, alert, obeys commands, Oriented to person, place, situation. Cardiovascular: Capillary refill < 3 seconds is brisk in bilateral fingers. Respiratory: Airway is patent Respiratory effort is even, unlabored, Respiratory pattern is regular, symmetrical. GI: No signs and/or symptoms were reported involving the gastrointestinal system. : No signs and/or symptoms were reported regarding the genitourinary system. EENT: No signs and/or symptoms were reported regarding the EENT system. Derm: Skin is pink, warm \\T\\ dry. Musculoskeletal: Reports pain in left arm. 19:25 Reassessment: Patient states feeling better. aa5 19:25 Neuro: Level of Consciousness is awake, alert, obeys commands, Oriented to person, aa5 place, situation. Respiratory: Airway is patent Respiratory effort is even, unlabored, Respiratory pattern is regular, symmetrical. Derm: Skin is pink, warm \\T\\ dry. Vital Signs: 13:17 BP 190 / 85; Pulse 83; Resp 17 S; Temp 97.3(TE); Pulse Ox 97% on R/A; Weight 45.36 kg jd3 (R); Height 5 ft. 2 in. (157.48 cm) (R); Pain 10/10; 18:15 BP 188 / 73; Pulse 73; Resp 16 S; Pulse Ox 99% on R/A; aa5 19:20 BP 166 / 99; Pulse 80; Resp 16 S; Pulse Ox 100% on R/A; aa5 13:17 Body Mass Index 18.29 (45.36 kg, 157.48 cm) jd3 ED Course: 13:07 Patient arrived in ED. rg4 13:16 Triage completed. jd3 13:18 Arm band placed on. jd3 14:12 Humerus Left In Process Unspecified. EDMS 17:40 Patient has correct armband on for positive identification. Bed in low position. Call aa5 light in reach. Side rails up X2. Adult w/ patient. 17:42 Juventino Linda PA is PHCP. cp 17:42 Juventino Maciel MD is Attending Physician. cp 18:02 Sparkle Quigley, RN is Primary Nurse. aa5 18:26 Fuentes Dahl MD is Referral Physician. cp 19:25 No provider procedures requiring assistance completed. Patient did not have IV access aa5 during this emergency room visit. Administered Medications: 18:15 Drug: HYDROcodone-acetaminophen 5 mg-325 mg 1 tabs Route: PO; aa5 19:25 Follow up: Response: No adverse reaction; Pain is decreased aa5 Outcome: 18:29 Discharge ordered by MD. cp 19:25 Discharged to home via wheelchair, with family. aa5 19:25 Condition: stable 19:25 Discharge instructions given to Pt's daughter Instructed on discharge instructions, follow up and referral plans. medication usage, Demonstrated understanding of instructions, follow-up care, medications, Prescriptions given X 1. 19:30 Patient left the ED. ea Signatures: Dispatcher [employer] EDMS Sparkle Quigley, RN RN aa5 Juventino Linda PA PA cp Garcia, Rubi rg4 Maddie Honeycutt RN Dc Salamanca ea RN RN jd3
[2020-08-27 19:35] VITALS: TEMP 97.3
[2020-08-27 19:37] VITALS: BP 188/73; O2SAT 99
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
== END 2020-08-27 19:30 | disposition home or self-care (01) ==
LOC: ER 13:05
DX: S42.222A 2-part displaced fracture of surgical neck of left humerus, initial encounter for closed fracture (principal); E78.00 Pure hypercholesterolemia, unspecified; E03.9 Hypothyroidism, unspecified; I10 Essential (primary) hypertension; F03.90 Unspecified dementia, unspecified severity, without behavioral disturbance, psychotic disturbance, mood disturbance, and anxiety; W19.XXXA Unspecified fall, initial encounter
CPT/HCPCS: 99283

== ENCOUNTER 2021-09-18 10:32 | Emergency (ER) | payer OTHER ==
--- OUTSIDE RECORDS SUMMARY | 2021-09-18 10:35 | XMS REPORT | Continuity of Care Document ---
:1935 Author Organization [facility] Address [address] [id number] Care Team Providers Name Role Phone LUIS Attending Clinician Unavailable ERMELINDA Attending Clinician Unavailable Problems This patient has no known problems. Allergies, Adverse Reactions, Alerts This patient has no known allergies or adverse reactions. Medications This patient has no known medications. Procedures This patient has no known procedures. Encounters Start End Encounter Admission Attending Care Care Encounter Source Date/Time Date/Time Type Type Clinicians Facility Department ID 2021-07-10 2021-07-10 Outpatient [facility] [id number] [place] 00:00:00 00:00:[address] 2020-12-05 2020-12-05 Outpatient [facility] [id number] [place] 00:00:00 00:00:00 NIKKI [address] 2020-09-11 2020-09-11 Outpatient [place] [id number] [place] 00:00:00 00:00:00 TWILA [address] 2020-09-11 2020-09-11 Outpatient [facility] [id number] [place] 00:00:00 00:00:00 TWILA [address] 2020-09-11 2020-09-11 Outpatient [facility] [id number] [place] 00:00:00 00:00:00 TWILA [address] 2020-09-04 2020-09-04 Outpatient [facility] [id number] [place] 00:00:00 00:00:00 NIKKI [address] 2020-08-22 2020-08-22 Outpatient [facility] [id number] [place] 00:00:00 00:00:[address] 2020-02-06 2020-02-06 Outpatient [facility] [id number] [place] 00:00:00 00:00:00 NIKKI [address] 2019-11-03 2019-11-03 Outpatient [facility] [id number] [place] 00:00:00 00:00:00 [address] [facility] Results This patient has no known results.
--- NOTE | 2021-09-18 11:12 | RAD REPORT ---
EXAM DESCRIPTION: CT - [id number] - 09/18/2021 10:55 am CLINICAL HISTORY: Trauma, head and neck injury. Fall, Head contusion COMPARISON: No comparisons TECHNIQUE: Axial 5 mm thick images of the head were obtained. Axial 2 mm thick images of the cervical spine were obtained with sagittal and coronal reconstruction images generated and reviewed. All CT scans are performed using dose optimization technique as appropriate and may include automated exposure control or mA/KV adjustment according to patient size. FINDINGS: CT HEAD WITHOUT CONTRAST: No acute hemorrhage, hydrocephalus or extra-axial collection is identified.Mild generalized brain atr ophy is present with moderate periventricular and deep white matter chronic microvascular ischemic ch anges.No areas of brain edema or midline shift. The paranasal sinuses and mastoids are clear.Large amount of soft tissue swelling is seen anterior ri ght frontal scalp and periorbital region.The calvarium is intact. CT CERVICAL SPINE WITHOUT CONTRAST: No fracture or subluxation.Moderate midcervical degenerative changes present. There is 2-3 mm degener ative anterolisthesis of C3 on 4. Disc thinning with large posterior osteophytes C4-5 and C5-6.No pre vertebral soft tissues swelling is identified. Bilateral carotid atherosclerosis. IMPRESSION: No acute intracranial or cervical spine findings.Large right anterior scalp hematoma. Moderately severe mid cervical spondylosis and degenerative anterolisthesis.
[2021-09-18 11:22] LABS: Absolute Lymphocytes (CBC) 0.3 K/uL (0.7-4.9); Hematocrit 32.1 % (36.0-45.0); Lymphocytes % 6.5 % (15.3-44.8); MPV 7.9 fL (7.6-11.3); RBC Red Blood Cell Count 3.61 M/uL (3.86-4.86)
[2021-09-18 11:39] LABS: Potassium 4.1 mmol/L (3.5-5.1)
--- NOTE | 2021-09-18 11:44 | EDPHYS ---
Physician Documentation [facility] Name: Heidy Saucedo Age: 86 yrs Sex: Female : 1935 Arrival Date: 09/18/2021 Time: 10:35 Bed 3 Private MD: ED Physician Bradly Bowen HPI: 09/18 11:04 This 86 yrs old Female presents to ER via EMS with complaints of Fall Injury. ms3 11:04 Details of fall: The patient fell from an upright position, while standing, and struck ms3 hard floor. Onset: The symptoms/episode began/occurred acutely. Associated injuries: The patient sustained injury to the head, contusion. Severity of symptoms: in the emergency department the symptoms are unchanged. History of dementia, hyperlipidemia, hypertension, hypothyroid presents via clued EMS status post fall while gathering her dogs 45 minutes prior to arrival. EMS states patient's baseline is ANO x2-3. Patient denies pain. Patient denies alleviating or inciting factors. Patient denies loss of consciousness.. Historical: - Home Meds: 10:51 amlodipine 10 mg tab 1 tab once daily [Active]; fenofibrate 145 mg daily Oral [Active]; vg1 sertraline 100 mg Oral tab 0.5 tab nightly [Active]; Synthroid 50 mcg Oral tab 1 tab once daily [Active]; pantoprazole oral [Active]; Lisinopril Oral [Active]; Pepcid 20 mg Oral tab [Active]; - PMHx: 10:51 Dementia; High Cholesterol; Hypertension; Hypothyroidism; vg1 - Immunization history: Last tetanus immunization: unknown. - Social history:: Smoking status: Patient denies any tobacco usage or history of. ROS: 11:06 Constitutional: Negative for fever, and chills. Eyes: Negative for injury, pain, ms3 redness, and discharge, Neck: Negative for injury, pain, and swelling, Cardiovascular: Negative for chest pain, and palpitations. Respiratory: Negative for shortness of breath, cough, wheezing, and pleuritic chest pain, Abdomen/GI: Negative for abdominal pain, nausea, vomiting, diarrhea, and constipation, Back: Negative for injury and pain, MS/Extremity: Negative for injury and deformity, Neuro: Negative for headache, weakness, numbness, tingling. 11:06 Skin: Positive for discoloration, ecchymosis. Exam: 11:06 Constitutional: This is a well developed, well nourished patient who is awake, alert, ms3 and in no acute distress. Eyes: Pupils equal round and reactive to light, extra-ocular motions intact. Lids and lashes normal. Conjunctiva and sclera are non-icteric and not injected. Periorbital areas with no swelling, redness, or edema. Chest/axilla: Normal chest wall appearance and motion. Nontender with no deformity. Cardiovascular: Regular rate and rhythm with a normal S1 and S2. No gallops, murmurs, or rubs. Normal PMI, no JVD. No pulse deficits. Respiratory: Lungs have equal breath sounds bilaterally, clear to auscultation and percussion. No rales, rhonchi or wheezes noted. No increased work of breathing, no retractions or nasal flaring. Abdomen/GI: Soft, non-tender, with normal bowel sounds. No distension or tympany. No guarding or rebound. No evidence of tenderness throughout. Back: No spinal tenderness. No costovertebral tenderness. Full range of motion. MS/ Extremity: Pulses equal, no cyanosis. Neurovascular intact. Full, normal range of motion. 11:06 Head/face: Noted is contusion, that is deep, of the forehead, ecchymosis, that is severe, of the forehead. 11:06 Neuro: Orientation: Baseline per EMS, Mentation: is normal, Motor: is normal, Sensation: is normal. Vital Signs: 10:34 BP 170 / 82; Pulse 88; Resp 17; Temp 97.4; Pulse Ox 98% ; Weight 45.36 kg; Height 5 ft. vg1 0 in. (152.40 cm); Pain 1/10; 11:29 BP 167 / 78; Pulse 73; Pulse Ox 100% on R/A; ap3 10:34 Body Mass Index 19.53 (45.36 kg, 152.40 cm) vg1 Vaughn Coma Score: 10:34 Eye Response: spontaneous(4). Verbal Response: oriented(5). Motor Response: obeys vg1 commands(6). Total: 15. Trauma Score (Adult): 10:34 Eye Response: spontaneous(1); Verbal Response: oriented(1); Motor Response: obeys vg1 commands(2); Systolic BP: > 89 mm Hg(4); Respiratory Rate: 10 to 29 per min(4); Vaughn Score: 15; Trauma Score: 12 MDM: 10:40 Patient medically screened. ms3 11:42 Differential diagnosis: abrasion, closed head injury, contusion, fracture. Data ms3 reviewed: vital signs, nurses notes, lab test result(s), radiologic studies, CT scan. Counseling: I had a detailed discussion with the patient and/or guardian regarding: the historical points, exam findings, and any diagnostic results supporting the discharge/admit diagnosis, lab results, the need for outpatient follow up. 11:42 ED course: Discussed labs, CT findings, physical exam findings with patient and her ms3 family. Patient to follow-up with primary care physician as discussed. All questions were answered. Return precautions discussed include worsening symptoms, or any other concerns. Reevaluation patient is alert, in no apparent distress, nontoxic, asking to leave.. 09/18 10:41 Order name: Basic Metabolic Panel; Complete Time: 11:42 ms3 09/18 10:41 Order name: CBC with Diff ms3 09/18 10:41 Order name: CT Head C Spine; Complete Time: 11:19 ms3 09/18 10:41 Order name: Labs collected and sent; Complete Time: 11:09 ms3 Administered Medications: No medications were administered Disposition Summary: 09/18/21 11:44 Discharge Ordered Location: Home ms3 Condition: Stable ms3 Diagnosis - Contusion of unspecified part of head, initial encounter ms3 - Fall on same level, unspecified ms3 - Anemia, unspecified ms3 Followup: ms3 - With: Fredrick Chawla MD - When: 2 - 3 days - Reason: Recheck today's complaints Discharge Instructions: - Discharge Summary Sheet ms3 - Anemia ms3 - Contusion ms3 - Contusion, [id number] ms3 Forms: - Medication Reconciliation Form ms3 - Thank You Letter ms3 - Antibiotic Education ms3 - Prescription Opioid Use ms3 Signatures: Dispatcher [employer] Abimbola Dillon RN RN vg1 Bradly Bowen DO DO ms3
--- NOTE | 2021-09-18 11:44 | ER ---
Nurse's Notes [facility] Name: Heidy Saucedo Age: 86 yrs Sex: Female : 1935 Arrival Date: 09/18/2021 Time: 10:35 Bed 3 Private MD: Diagnosis: Contusion of unspecified part of head, initial encounter;Fall on same level, unspecified;Anemia, unspecified Presentation: 09/18 10:42 Chief complaint: EMS states: Pt fell from standing position onto hardwood floor, fall vg1 was unwitnessed, unsure of LOC, Pt granddaughter states was in the other room when heard a 'thud'. EMS states pt normal is AO x2. Pt appears to have a hematoma to Right side of forehead. Care prior to arrival: None. Mechanism of Injury: Fall from standing position. Trauma event details: Injury occurred in the [facility]. 10:42 Acuity: KRISTAL 2 vg1 10:42 Method Of Arrival: EMS: [facility] vg1 10:51 Coronavirus screen:. Ebola Screen: Patient negative for fever greater than or equal to vg1 101.5 degrees Fahrenheit, and additional compatible Ebola Virus Disease symptoms. Initial Sepsis Screen: Does the patient meet any 2 criteria? Yes Does the patient have a suspected source of infection? No. Patient's initial sepsis screen is negative. Risk Assessment: Do you want to hurt yourself or someone else?. Onset of symptoms was September 18, 2021. Trauma Activation: Physician: ED Physician; Name: Dr Bowen; Notified At: ; Arrived At: Physician: General Surgeon; Name: ; Notified At: ; Arrived At: Physician: Radiology; Name: ; Notified At: ; Arrived At: Physician: Respiratory; Name: ; Notified At: ; Arrived At: Physician: Lab; Name: ; Notified At: ; Arrived At: Historical: - Home Meds: 10:51 amlodipine 10 mg tab 1 tab once daily [Active]; fenofibrate 145 mg daily Oral [Active]; vg1 sertraline 100 mg Oral tab 0.5 tab nightly [Active]; Synthroid 50 mcg Oral tab 1 tab once daily [Active]; pantoprazole oral [Active]; Lisinopril Oral [Active]; Pepcid 20 mg Oral tab [Active]; - PMHx: 10:51 Dementia; High Cholesterol; Hypertension; Hypothyroidism; vg1 - Immunization history: Last tetanus immunization: unknown. - Social history:: Smoking status: Patient denies any tobacco usage or history of. Screenin:34 Abuse screen: Denies threats or abuse. Nutritional screening: No deficits noted. vg1 Tuberculosis screening: No symptoms or risk factors identified. 10:50 Fall Risk Fall in past 12 months (25 points). No secondary diagnosis (0 pts). IV access vg1 (20 points). Ambulatory Aid- None/Bed Rest/Nurse Assist (0 pts). Gait- Normal/Bed Rest/Wheelchair (0 pts) Mental Status- Oriented to own ability (0 pts). Total Alonso Fall Scale indicates High Risk Score (45 or more points). Fall prevention measures have been instituted. Side Rails Up X 2 Placed Close to Nursing Station. Primary Survey: 10:34 NO uncontrolled hemorrhage observed. A: The patient is alert. Airway: patent. vg1 Breathing/Chest: Respiratory pattern: regular, Respiratory effort: spontaneous, Breath sounds: clear, bilaterally. Chest inspection: symmetrical rise and fall of the chest. Circulation: Skin color: pink. Disability Alert. Exposure/Environment: A warming method has been applied: A warm blanket has been provided to the patient. 10:59 Reassessment Breathing/Chest Respiratory pattern Regular Respiratory effort Spontaneous ap3 Chest inspection Symmetrical. Secondary Survey: 10:34 HEENT: Head Other pt appears to have a hematoma to the right side of forehead. vg1 Gastrointestinal: No deficits noted. : No deficits noted. Musculoskeletal: Circulation, motion, and sensation intact. Assessment: 10:34 General: Appears in no apparent distress. uncomfortable, Behavior is calm, cooperative. vg1 Pain: Complains of pain in head Pain currently is 2 out of 10 on a pain scale. Pain began 30 min ago. Neuro: Level of Consciousness is awake, alert, obeys commands, Oriented to person, situation. EENT: No signs and/or symptoms were reported regarding the EENT system. Cardiovascular: Patient's skin is warm and dry. Respiratory: Airway is patent Respiratory effort is even, unlabored. GI: No signs and/or symptoms were reported involving the gastrointestinal system. : No signs and/or symptoms were reported regarding the genitourinary system. Derm: Bruising that is dark purple, on right side of forehead. Musculoskeletal: Circulation, motion, and sensation intact. 11:29 Reassessment: daughter is at the patients bedside. ap3 Vital Signs: 10:34 BP 170 / 82; Pulse 88; Resp 17; Temp 97.4; Pulse Ox 98% ; Weight 45.36 kg; Height 5 ft. vg1 0 in. (152.40 cm); Pain 1/10; 11:29 BP 167 / 78; Pulse 73; Pulse Ox 100% on R/A; ap3 10:34 Body Mass Index 19.53 (45.36 kg, 152.40 cm) vg1 Columbia Coma Score: 10:34 Eye Response: spontaneous(4). Verbal Response: oriented(5). Motor Response: obeys vg1 commands(6). Total: 15. Trauma Score (Adult): 10:34 Eye Response: spontaneous(1); Verbal Response: oriented(1); Motor Response: obeys vg1 commands(2); Systolic BP: > 89 mm Hg(4); Respiratory Rate: 10 to 29 per min(4); Vaughn Score: 15; Trauma Score: 12 ED Course: 10:34 Patient has correct armband on for positive identification. Placed in gown. Bed in low vg1 position. Call light in reach. Side rails up X2. 10:34 Patient maintains SpO2 saturation greater than 95% on room air. vg1 10:35 Patient arrived in ED. em1 10:40 Bradly Bowen DO is Attending Physician. ms3 10:42 Abimbola Foley, RN is Primary Nurse. vg1 10:46 Triage completed. vg1 10:51 Arm band placed on. vg1 10:55 CT Head C Spine In Process Unspecified. EDMS 10:59 Thermoregulation: warm blanket given to patient. ap3 11:09 Initial lab(s) drawn, by ED staff, sent to lab. Inserted saline lock: 20 gauge in left vg1 antecubital area, using aseptic technique. ,using aseptic technique. completed by Rosalind lead data architect Blood collected. 11:28 Dressings: non-adherent dressing x 1 forehead Vaseline gauze X 1; forehead with leighann ap3 wrap. 11:43 Fredrick Chawla MD is Referral Physician. ms3 11:59 No provider procedures requiring assistance completed. IV discontinued, intact, ap3 bleeding controlled, No redness/swelling at site. Pressure dressing applied. Administered Medications: No medications were administered Intake: 12:00 PO: 0ml; IV: 0ml; Total: 0ml. ap3 Output: 12:00 Urine: 0ml; Total: 0ml. ap3 Outcome: 11:44 Discharge ordered by MD. ms3 11:59 Discharged to home via wheelchair, with family. ap3 11:59 Condition: good 11:59 Discharge instructions given to patient, family, Instructed on discharge instructions, follow up and referral plans. wound care, Demonstrated understanding of instructions, follow-up care, wound care. 12:00 Patient left the ED. ap3 12:02 Patient's length of stay was not longer than 2 hours. ap3 Signatures: Dispatcher [employer] Anival Glez em1 Sindhu Perdomo RN RN ap3 Abimbola Foley RN RN vg1 Bradly Bowen DO DO ms3
[2021-09-18 12:10] VITALS: TEMP 97.4
[2021-09-18 12:11] VITALS: BP 167/78; O2SAT 100
[2021-09-18 12:37] LABS: Blood Morphology Comment NOT SEEN (NOT SEEN); Platelet Estimate ADEQ
== END 2021-09-18 12:00 | disposition home or self-care (01) ==
LOC: ER 10:32
DX: S00.83XA Contusion of other part of head, initial encounter (principal); D64.9 Anemia, unspecified; W18.30XA Fall on same level, unspecified, initial encounter; F03.90 Unspecified dementia, unspecified severity, without behavioral disturbance, psychotic disturbance, mood disturbance, and anxiety; E03.9 Hypothyroidism, unspecified; E78.00 Pure hypercholesterolemia, unspecified; I10 Essential (primary) hypertension
CPT/HCPCS: 36415; 70450; 72125; 80048; 85025; 99284

== ENCOUNTER 2021-12-21 15:17 | Emergency (ER) | payer OTHER ==
--- OUTSIDE RECORDS SUMMARY | 2021-12-21 15:20 | XMS REPORT | Continuity of Care Document ---
:1935 Author Organization [facility] t Address [address] [place] [address] [address] [place] [address] Care Team Providers Name Role Phone LUIS [...] Clinicians Facility Department ID 2021-07-10 2021-07-10 Outpatient [facility] [id number] [place] 00:00:00 00:00:[address] 2020-12-05 2020-12-05 Outpatient [facility] [id number] [place] 00:00:00 00:00:00 NIKKI [address] 2020-09-11 2020-09-11 Outpatient [place] [id number] [place] 00:00:00 00:00:00 TWILA [address] 2020-09-11 2020-09-11 Outpatient [place] [id number] [place] 00:00:00 00:00:00 TWILA [address] 2020-09-11 2020-09-11 Outpatient [facility] [id number] [place] 00:00:00 00:00:00 TWIL[place] [address] 2020-09-04 2020-09-04 Outpatient [facility] [id number] [place] 00:00:00 00:00:00 NIKKI [address] 2020-08-22 2020-08-22 Outpatient [facility] [id number] [place] 00:00:00 00:00:[address] 2020-02-06 2020-02-06 Outpatient [facility] [id number] [place] 00:00:00 00:00:00 NIKKI [address] 2019-11-03 2019-11-03 Outpatient [facility] [id number] [place] 00:00:00 00:00:00 NIKKI [address] Results This patient has no known results.
[2021-12-21] MEDS ORDERED: HYDROCODONE/APAP 7.5/325 MG TAB ONE (16:46)
--- NOTE | 2021-12-21 16:54 | RAD REPORT ---
EXAM DESCRIPTION: RAD - Shoulder Right 2 View - 12/21/2021 4:45 pm CLINICAL HISTORY: Right shoulder pain FINDINGS: Comminuted right humeral neck fracture with marked displacement of fracture fragments. No dislocation
--- NOTE | 2021-12-21 16:54 | RAD REPORT ---
EXAM DESCRIPTION: CT - Head C Spine Cap Ever Con - 12/21/2021 4:31 pm CLINICAL HISTORY: Head and neck injury with chest and abdominal pain status post fall TECHNIQUE: Computed axial tomography of head, neck, chest, abdomen and pelvis obtained. IV and oral contrast not requested. Coronal and sagittal reconstruction performed. All CT scans are performed using dose optimization technique as appropriate and may include automated exposure control or mA/KV adjustment according to patient size. COMPARISON: 2018 and 2021 FINDINGS: Right frontal scalp swelling An intracranial bleed is not seen. The ventricles are normal in caliber. An extra-axial fluid collection is not noted. . Fluid within the sinuses/mastoids is not seen. A cervical fracture is not seen. No dislocation is noted. Mild chronic anterior subluxation C3 on C4. Mild chronic posterior subluxation C5 on C6. Prominent spondylosis involves the cervical spine. The evaluation of mediastinum, latisha, vessels, solid organs and bowel are limited secondary to the lac k of contrast administration. A mediastinal hematoma is not noted. A pleural effusion is not seen. A lung contusion is not present. The liver,spleen, pancreas, adrenals,kidneys and bladder do not demonstrate a traumatic injury 4.6 x 2.6 centimeter mass within the right renal pelvis has enlarged. Comminuted right humeral neck fracture with marked displacement of fracture fragments Old left humeral fracture Left adrenal adenoma IMPRESSION: No acute intracranial abnormality is seen. A cervical fracture is not visualized. 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
--- NOTE | 2021-12-21 17:46 | ER ---
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 Pt c/o right arm aa5 pain, hematoma noted to right side of forehead. Pt's daughter states "we just heard a loud thump and knew she had fallen again". 15:24 Coronavirus screen: At this time, the client does not indicate any symptoms associated aa5 with coronavirus-19. Ebola Screen: No symptoms or risks identified at this time. Initial Sepsis Screen: Does the patient meet any 2 criteria? No. Patient's initial sepsis screen is negative. Does the patient have a suspected source of infection? No. Patient's initial sepsis screen is negative. Risk Assessment: Do you want to hurt yourself or someone else? Unable to obtain. Onset of symptoms was December 21, 2021. 15:24 Acuity: KRISTAL 2 aa5 15:24 Method Of Arrival: Wheelchair aa5 Historical: - Allergies: 15:32 Unknown anesthesia; aa5 - PMHx: 15:24 Dementia; High Cholesterol; Hypertension; Hypothyroidism; aa5 - Immunization history:: Adult Immunizations unknown. - Social history:: Smoking status: Patient denies any tobacco usage or history of. Vital Signs: 15:24 BP 193 / 70; Pulse 67; Resp 16 S; Temp 98.6(TE); Pulse Ox 100% on R/A; aa5 ED Course: 15:18 Patient arrived in ED. jj6 15:24 Arm band placed on. aa5 15:32 Triage completed. aa5 15:35 Tyrell Pink MD is Attending Physician. kdr 16:32 CT Traumagram (Head C Spine CAP wo con) In Process Unspecified. EDMS 16:46 Shoulder Right (2 View) XRAY In Process Unspecified. EDMS 16:52 Cherise Urena RN is Primary Nurse. 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 Exp: iw 09/20/2023. Lot #: [id number]. } Route: IM; Site: left deltoid; 18:13 Follow up: Response: No adverse reaction iw Outcome: 17:45 Discharge ordered by . kdr 18:15 Discharged to home via wheelchair, with family. iw 18:15 Condition: good 18:15 Discharge instructions given to family, Instructed on discharge instructions, follow up and referral plans. medication usage, Demonstrated understanding of instructions, follow-up care, medications, Prescriptions given X 1. 18:16 Patient left the ED. iw Signatures: Dispatcher [employer] EDMS Tyrell Pink MD MD kdr Cherise Urena RN RN iw Sparkle Quigley RN RN Seema Briscoe6
--- NOTE | 2021-12-21 17:46 | EDPHYS ---
Physician Documentation [facility] Name: Heidy Saucedo Age: 86 yrs Sex: Female : 1935 Arrival Date: 12/21/2021 Time: 15:18 Bed 9 Private MD: ED Physician Tyrell Pink HPI: 12/21 16:17 This 86 yrs old Female presents to ER via Wheelchair with complaints of Fall Injury. kdr 16:17 Details of fall: The patient fell from an upright position. Onset: The symptoms/episode kdr began/occurred just prior to arrival. Associated injuries: The patient sustained Only patient complaint at this time appears to be right shoulder pain however it was an unwitnessed fall. Severity of symptoms: At their worst the symptoms were mild, moderate, just prior to arrival, in the emergency department the symptoms are unchanged. It is unknown whether or not the patient has recently seen a physician. Historical: - Allergies: 15:32 Unknown anesthesia; aa5 - PMHx: 15:24 Dementia; High Cholesterol; Hypertension; Hypothyroidism; aa5 - Immunization history:: Adult Immunizations unknown. - Social history:: Smoking status: Patient denies any tobacco usage or history of. ROS: 16:26 Constitutional: Negative for fever, chills, and weight loss, patient has a history of kdr dementia and her history is poor Eyes: Negative for injury, pain, redness, and discharge, Neck: Negative for injury, pain, and swelling, Cardiovascular: Negative for chest pain, palpitations, and edema. Exam: 16:26 Constitutional: This is a well developed, well nourished patient who is awake, alert, kdr and in no acute distress. Head/Face: Normocephalic, atraumatic. Eyes: Pupils equal round and reactive to light, extra-ocular motions intact. Lids and lashes normal. Conjunctiva and sclera are non-icteric and not injected. Cornea within normal limits. Periorbital areas with no swelling, redness, or edema. Neck: Trachea midline, no thyromegaly or masses palpated, and no cervical lymphadenopathy. Supple, full range of motion without nuchal rigidity, or vertebral point tenderness. No Meningismus. Chest/axilla: Normal chest wall appearance and motion. Nontender with no deformity. No lesions are appreciated. Cardiovascular: Regular rate and rhythm with a normal S1 and S2. No gallops, murmurs, or rubs. Normal PMI, no JVD. No pulse deficits. Respiratory: Lungs have equal breath sounds bilaterally, clear to auscultation and percussion. No rales, rhonchi or wheezes noted. No increased work of breathing, no retractions or nasal flaring. Abdomen/GI: Soft, non-tender, with normal bowel sounds. No distension or tympany. No guarding or rebound. No evidence of tenderness throughout. Back: No spinal tenderness. No costovertebral tenderness. Full range of motion. 16:26 Skin: injury, abrasion(s), of the right antecubital area, avulsion(s). 16:26 Neuro: Awake and alert, GCS 15, oriented to person, place, time, and situation. kdr Cranial nerves II-XII grossly intact. Motor strength 5/5 in all extremities. Sensory grossly intact. Cerebellar exam normal. Normal gait. Psych: Awake, alert, with orientation to person, place and time. Behavior, mood, and affect are within normal limits. 16:26 Musculoskeletal/extremity: Extremities: grossly normal except: noted in the anterior aspect of right shoulder and posterior aspect of right shoulder: pain, ROM: limited active range of motion due to pain, limited passive range of motion due to pain, in all extremities, Circulation is intact in all extremities. Vital Signs: 15:24 BP 193 / 70; Pulse 67; Resp 16 S; Temp 98.6(TE); Pulse Ox 100% on R/A; aa5 MDM: 16:26 Data reviewed: vital signs, nurses notes, radiologic studies. Counseling: I had a kdr detailed discussion with the patient and/or guardian regarding: the historical points, exam findings, and any diagnostic results supporting the discharge/admit diagnosis, the presence of at least one elevated blood pressure reading (>120/80) during this emergency department visit. 17:45 Patient medically screened. [facility] 12/21 15:50 Order name: CT Traumagram (Head C Spine CAP wo con); Complete Time: 17:24 [facility] 12/21 15:50 Order name: Shoulder Right (2 View) XRAY; Complete Time: 17:24 [facility] 12/21 17:26 Order name: Misc. 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 Exp: iw 09/20/2023. Lot #: [id number]. } Route: IM; Site: left deltoid; 18:13 Follow up: Response: No adverse reaction iw Disposition Summary: 12/21/21 17:45 Discharge Ordered Location: Home kdr Problem: new kdr Symptoms: have improved kdr Condition: Stable kdr Diagnosis - Displaced comminuted fracture of shaft of humerus, right arm, initial encounter for kdr open fracture Followup: kdr - With: Private Physician - When: 2 - 3 days - Reason: If symptoms return, Further diagnostic work-up, Recheck today's complaints, Continuance of care, Re-evaluation by your physician Discharge Instructions: - Discharge Summary Sheet kdr - Humerus Fracture Treated With Immobilization, [id number] kdr - Head Injury, Adult, [id number] kdr Forms: - Medication Reconciliation Form kdr - Thank You Letter kdr - Prescription Opioid Use kdr Prescriptions: - Tramadol 50 mg Oral Tablet - take 1 tablet by ORAL route every 8 hours As needed as needed; 20 tablet; kdr Refills: 0, Product Selection Permitted Signatures: Dispatcher [employer] Tyrell Fuchs MD MD kdr Cherise Urena RN RN iw Sparkle Quigley RN RN aa5
[2021-12-21] MEDS ORDERED: TETANUS & DIPHTHERIA TOX,ADULT 0.5 ML VIAL ONE (18:01)
[2021-12-21 18:40] VITALS: BP 193/70; TEMP 98.6; O2SAT 100
== END 2021-12-21 18:16 | disposition home or self-care (01) ==
LOC: ER 15:17
DX: S42.351B Displaced comminuted fracture of shaft of humerus, right arm, initial encounter for open fracture (principal); F03.90 Unspecified dementia, unspecified severity, without behavioral disturbance, psychotic disturbance, mood disturbance, and anxiety; I10 Essential (primary) hypertension; Z23 Encounter for immunization; Z88.4 Allergy status to anesthetic agent
CPT/HCPCS: 70450; 71250; 72125; 90471; 90714; 99283

== ENCOUNTER 2022-03-23 05:21 | Emergency (ER) | payer OTHER ==
--- OUTSIDE RECORDS SUMMARY | 2022-03-23 05:24 | XMS REPORT | Continuity of Care Document ---
:1935 Author Organization [facility] t Address 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 2-30 st impairment impairment 00:00: Ho spita 00 l Fracture Fracture Disease Active [facility] di of of 3-03 st surgical surgical 00:00: Hospit a neck of neck of 00 l left left humerus humerus Gait Gait Disease Active [facility] instabilit instabilit 1- y y 00:00: Hospita 00 l Murmur, Murmur, Disease Active [facility] cardiac cardiac 07-21 00:00: Hospita 00 l CKD CKD Disease Active 2018-07 [facility] (chronic (chronic 0-08 kidney kidney 00:00: Hospita disease) disease) 00 l stage 2, stage 2, GFR 60-89 GFR 60-89 ml/min ml/min Anemia Anemia Disease Active [facility] 12-20 00:00: Hospita 00 l Constipati Constipati Disease Active M [facility]i on on 11-25 00:00: Hospita 00 l Depression Depression Disease Active M [facility]i 11-25 00:00: Hospita 00 l Diabetes Diabetes Disease Active [facility] di mellitus mellitus 11-25 00:00: Hospita 00 l Hypomagnes Hypomagnes Disease Active M ethodi emia emia 11-25 00:00: Hospita 00 l Hypothyroi Hypothyroi Disease Active M ethodi d d 11-25 00:00: Hospita 00 l Pneumonia Pneumonia Disease Active Met hodi 11-25 00:00: Hospita 00 l Troponin Troponin Disease Active [facility] di level level 11-25 elevated elevated 00:00: Hospit a 00 l Kidney Kidney Disease Active [facility] mass mass 11-16 00:00: Hospita 00 l Type 2 Type 2 Disease Active [facility] diabetes diabetes 11-16 mellitus mellitus 00:00: Hospit a without without 00 l complicati complicati on, on, without without long-term long-term current current use of use of insulin insulin Vitamin D Vitamin D Disease Active Met [facility]odi deficiency deficiency 11-16 00:00: Hospita 00 l Hyperlipem Hyperlipem Disease Active M ethodi ia ia 11-16 00:00: Hospita 00 l GERD with GERD with Disease Active Met [facility]odi esophagiti esophagiti 11-16 s s 00:00: Hospita 00 l History of History of Disease Active M ethodi pneumonia pneumonia 11-16 00:00: Hospita 00 l HTN HTN Disease Active [facility] (hypertens (hypertens 11-16 ion) ion) 00:00: Hospita 00 l Allergies, Adverse Reactions, Alerts This patient has no known allergies or adverse reactions. Family History Family Member Diagnosis Comments Start Date Stop Date Source [facility] son [facility] Social History Social Habit Start Date Stop Date Quantity Comments Source History [facility] Drinks History [facility] Alcohol intake 2021-07-10 2021-07-10 Current [facility] 00:00:00 00:00:00 non-drinker of Hospital alcohol (finding) History [facility] 2020-09-11 2020-09-11 1 [facility] Frequency 00:00:00 00:00:00 Hospita l Tobacco use and 2018-11-16 2018-11-16 Smokeless tobacco [facility] exposure 00:00:00 00:00:00 non-user Hospital Sex Assigned At [birth year] [facility] Smoking Status Start Date Stop Date Source Never smoked tobacco [facility] Medications Ordered Filled Start Stop Current Ordering Indication Dosage Frequency Signature Comments Components Source Medication Medication Date Date Medication? Clinician (SIG) Name Name pantoprazol 2022- Yes [id number] 40mg Q.5D Take 1 [facility] e 02-09 tablet (40 st (PROTONIX) 00:00: 05:59 mg total) H ospita 40 MG EC 00 :00 by mouth 2 l tablet (two) times a day for 180 days. famotidine Yes [id number] 40mg QD Take 1 [facility] (PEPCID) 40 -05 tablet (40 st MG tablet 00:00: mg total) Hos ari 00 by mouth l nightly as needed for heartburn. amLODIPine Yes [id number] 10mg QD Take 1 M [facility]i (NORVASC) -05 tablet (10 st 10 mg 00:00: mg total) Hospita tablet 00 by mouth l daily. sertraline Yes [id number] 50mg QD Take 1 M [facility]i (Zoloft) 50 7-05 tablet (50 st MG tablet 00:00: mg total) Hos ari 00 by mouth l daily. lisinopriL 2022- Yes [id number] 20mg Q.5D Take 1 [facility] (PRINIVIL) 01-13- tablet (20 st 20 mg 00:00: 04:59 mg total) Hospit a tablet 00 :00 by mouth 2 l (two) times a day. fenofibrate 2022- Yes [id number] 145mg QD Take 1 [facility] (TRICOR) 01-13-[address] 145 MG 00:00: 04:59 (145 mg Hospita tablet 00 :00 total) by l mouth daily. clonIDINE 2022- No [id number] .1mg Q24H Take 1 M [facility]i (CATAPRES) 5-24 05-[address] 0.1 MG 00:00: 04:59 (0.1 mg Hospita tablet 00 :00 total) by l mouth daily as needed for high blood pressure (BP over 190/100 after recheck). pantoprazol 2021- No [id number] 40mg Q.5D Take 1 [facility] e 3-14 07-30 tablet (40 st (PROTONIX) 00:00: 00:00 mg total) H ospita 40 MG EC 00 :00 by mouth 2 l tablet (two) times a day for 180 days. levothyroxi 2022- No [id number] 75ug QD Take 1 [facility] ne 1-03 01-04 tablet (75 st (Synthroid) 00:00: 05:59 mcg total) Hospita 75 mcg 00 :00 by mouth l tablet daily. acetaminoph 2020-07 Yes [id number] 1{tbl} Q4H Take 1 M ethodi en-codeine 2-[address] (TYLENOL 09:01: mouth Hospita WITH 05 every 4 l CODEINE #3) (four) 300-30 mg hours as per tablet needed for moderate pain .acute pain. varicella-z 2020-07- No [id number] .5mL Inject 0.5 [facility] malia 2-30 12-[address] gE-AS01B, 00:00: 05:59 the Hospita PF, 00 :00 shoulder, l (Shingrix, thigh, or PF,) 50 buttocks mcg/0.5 mL once for 1 suspension dose. for Repeat reconstitut dose 2-6 ion IM months injection after first. pantoprazol 2021- No [id number] 40mg Q.5D Take 1 Method[facility] e 9-27 03-14 tablet (40 st (PROTONIX) 00:00: 00:00 mg total) H ospita 40 MG EC 00 :00 by mouth 2 l tablet (two) times a day for 180 days. famotidine 2021- No [id number] 40mg QD Take 1 [facility] (PEPCID) 40 - 07- tablet (40 s t MG tablet 00:00: 00:00 mg total) Ho spita 00 :00 by mouth l nightly as needed for heartburn. amLODIPine 2021- No [id number] 10mg QD Take 1 [facility] (NORVASC) 01-09 tablet (10 st 10 mg 00:00: 00:00 mg total) Hospit a tablet 00 :00 by mouth l daily. lisinopriL 2021- No [id number] 20mg Q.5D Take 1 [facility] (PRINIVIL) 01-09 tablet (20 st 20 mg 00:00: 00:00 mg total) Hospit a tablet 00 :00 by mouth 2 l (two) times a day. sertraline 2021- No [id number] 50mg QD Take 1 [facility] (Zoloft) 50 01-09 tablet (50 s t MG tablet 00:00: 00:00 mg total) Ho spita 00 :00 by mouth l daily. fenofibrate 2021- No [id number] 145mg QD Take 1 [facility] (TRICOR) 01-[address] 145 MG 00:00: 00:00 (145 mg Hospita tablet 00 :00 total) by l mouth daily. clonIDINE 2021- No [id number] .1mg Q24H Take 1 M ethodi (CATAPRES) 01-[address] 0.1 MG 00:00: 00:00 (0.1 mg Hospita tablet 00 :00 total) by l mouth daily as needed for high blood pressure (BP over 190/100 after recheck). levothyroxi 2021- No [id number] 100ug QD Take 1 Method[facility] ne 01-[address] (SYNTHROID) 00:00: 00:00 (100 mcg H ospita 100 mcg 00 :00 total) by l tablet mouth daily. pantoprazol 2020- No [id number] 40mg Q.5D Take 1 [facility] e 01-09 tablet (40 st (PROTONIX) 00:00: 00:00 mg total) H ospita 40 MG EC 00 :00 by mouth 2 l tablet (two) times a day for 90 days. acetaminoph Yes [id number] 1000mg Q8H Take 2 Method[facility] en (Tylenol 2-[address] Extra 00:00: (1,000 mg Hospita Strength) 00 total) by l 500 MG mouth tablet every 8 (eight) hours as needed for mild pain or moderate pain. Do NOT mix with tylenol with codeine FLUZONE 2018-07 Yes TO BE [facility] HIGH-DOSE 0-[address] , 00:00: ED BY Hospita PF, 180 00 PHARMACIST l mcg/0.5 mL FOR syringe IM IMMUNIZATI injection ON Immunizations Ordered Immunization Filled Immunization Date Status Commen ts Source Name Name FLUZONE HIGH-DOSE PF 2021-06-04 Completed [facility] 00:00:00 [facility] FLUZONE HIGH-DOSE PF 2020-02-26 Completed [facility] 00:00:00 [facility] Pneumococcal 2020-02-16 Completed [facility] Polysaccharide 00:00:00 [facility] Pneumococcal 2019-07-21 Completed [facility] Conjugate 13-Valent 00:00:00 [facility] FLUZONE HIGH-DOSE PF 2019-04-20 Completed [facility] 00:00:00 [facility] Influenza, 2019-04-18 Completed [facility] Unspecified 00:00:00 [facility] Pneumococcal 2018-07-12 Completed [facility] Polysaccharide 00:00:00 Hospital Vital Signs Vital Name Observation Time Observation Value Comments Source Systolic blood 2021-07-10 14:58:00 138 mm[Hg] [facility] pressure Diastolic blood 2021-07-10 14:58:00 78 mm[Hg] [facility] pressure Heart rate 2021-07-10 14:58:00 73 /min [facility] Respiratory rate 2021-07-10 14:58:00 14 /min [facility] Body height 2021-07-10 14:58:00 154.9 cm [facility] Body weight 2021-07-10 14:58:00 44.453 kg [facility] BMI 2021-07-10 14:58:00 18.52 kg/m2 [facility] Procedures Procedure Date / Time Performing Clinician Source Performed HEMOGLOBIN A1C 2021-07-10 18:02:00 [place] [facility] [place] CBC WITH PLATELET AND 2021-07-10 18:02:00 Nikki Pink [facility] DIFFERENTIAL [place] COMPREHENSIVE METABOLIC 2021-07-10 18:02:00 Nikki Pink [facility] PANEL [place] TSH+FREE T4 2021-07-10 18:02:00 [facility] Vasquez NC REMOVAL IMPACTED 2021-07-10 16:17:56 [facility] CERUMEN IRRIGATION/LVG [place] PHILIP Plan of Care Planned Activity Planned Date Details Comments Source Future Scheduled 2022-03-19 HEPATITIS B [facility] Test 10:31:24 VACCINES (1 of 3 - 3-dose series) [code = HEPATITIS B VACCINES (1 of 3 - 3-dose series)] Future Scheduled 2022-03-19 COVID-19 [email or web address] Test 10:31:24 (#1) [code = COVID-19 VACCINE (#1)] Future Scheduled 2022-03-19 DIABETES: RETINAL [facility] Test 10:31:24 EYE EXAM [code = DIABETES: RETINAL EYE EXAM] Future Scheduled 2022-03-19 SHINGLES VACCINES [facility] Test 10:31:24 (1 of 2) [code = SHINGLES VACCINES (1 of 2)] Future Scheduled 2022-03-19 DIABETIC FOOT EXAM [facility] Test 10:31:24 [code = DIABETIC FOOT EXAM] Future Scheduled 2022-03-19 INFLUENZA VACCINE [facility] Test 10:31:24 [code = INFLUENZA VACCINE] Encounters Start End Encounter Admission Attending Care Care Encounter Source Date/Time Date/Time Type Type Clinicians Facility Department ID 2022-02-09 2022-02-[address]1 [id number] [facility] 00:00:00 00:00:00 Nikki 30860.1.1 788 [facility] 3.430.2.7 Hospit a .3.443450 l .8 2022-02-07 2022-02-07 [address]1 [id number] 21 [id number] [facility] 00:00:00 00:00:00 Nikki 85958.1.1 215 [facility] 3.430.2.7 Hospit a .3.258951 l .8 2022-01-09 2022-01-09 [address]1 [id number] 21 [id number] [facility] 00:00:00 00:00:00 Nikki 30361.1.1 960 [facility] 3.430.2.7 Hospit a .3.655002 l .8 2021-12-03 2021-12-03 [facility], 1.2.840.1 [id number] [facility] 00:00:00 00:00:[address] [place] 3.430.2.7 Hospit a .3.249175 l .8 2021-12-01 2021-12-01 Refill [place], 1.2.840.1 [id number] [facility] 00:00:00 00:00:[address] [place] 3.430.2.7 Hospit a .3.482947 l .8 2021-09-22 2021-09-22 Refill [place], 1.2.840.1 [id number] [facility] 00:00:00 00:00:[address] [place] 3.430.2.7 Hospit a .3.049646 l .8 2021-07-10 2021-07-10 [facility], 1.2.840.1 [id number] Methodi 09:00:00 10:16:28 Visit Nikki 47212.1.[address] [place] 3.430.2.7 Hospit a .3.740864 l .8 2021-07-10 2021-07-10 Outpatient [facility] [id number] [place] 00:00:00 00:00:[address] 2021-07-10 2021-07-10 Travel 1.2.840.1 1.2.843.417 [id number] Methodi 00:00:00 00:00:[address] 3.430.2.7 0.2.7.3.698 Ho spita .3.322272 084.8 l .8 2021-06-09 2021-06-09 [facility].2.[facility] [id number] [facility] 00:00:00 00:00:[address] [place] 3.430.2.7 Hospit a .3.600787 l .8 2021-04-26 2021-04-26 Refill [place], 1.2.840.1 [id number] 21 [id number] [facility] 00:00:00 00:00:[address] [place] 3.430.2.7 Hospit a .3.868349 l .8 2021-03-31 2021-03-31 Refill Pink, 1.2.840.1 [id number] 21 [id number] Method[facility] 00:00:00 00:00:[address] [place] 3.430.2.7 Hospit a .3.849828 l .8 2020-12-05 2020-12-05 Outpatient [facility] [id number] [place] 00:00:00 00:00:00 NIKKI [address] 2020-09-11 2020-09-[address] [facility] [id number] [place] 00:00:00 00:00:00 TWILA [address] 2020-09-11 2020-09-[address] [facility] [id number] [place] 00:00:00 00:00:00 TWILA [address] 2020-09-11 2020-09-[address] [facility] [id number] [place] 00:00:00 00:00:00 TWILA [address] 2020-09-04 2020-09-04 Outpatient [facility] [id number] [place] 00:00:00 00:00:00 NIKKI [address] 2020-08-22 2020-08-22 Outpatient [facility] [id number] [place] 00:00:00 00:00:[address] 2020-02-06 2020-02-06 Outpatient [facility] [id number] [place] 00:00:00 00:00:00 NIKKI [address] 2019-11-03 2019-11-03 Outpatient [facility] [id number] [place] 00:00:00 00:00:00 NIKKI [address] Results Test Description Test Time Test Comments Results Result Comments Source Hemoglobin A1c 2021-07-11 11:09:00 Test Item Value Reference Range Interpretation Comme nts Hemoglobin A1C (test code 5.0 % 4.8-5.6 P rediabetes: 5.7 - 6.4 = 4548-4) Diabetes: >6.4 Glycemic control for pilar lts with diabetes: <7.0 SOPHY (test code = SOPHY) Performed at: [facility] [id number] Director: Van Mesa MD, Phone: [phone] [facility] [id number] 09:07:00 Test Item Value Reference Range Interpretation Comments TSH (test code = See_Comment L [Automated 21363-1) message] The system which generated this result transmitted reference range : 0.450 - 4.500 uIU/mL. The reference range was not used to interpret this result as normal/abnormal . T4, free (test code = 2.44 ng/dL 0.82-1.77 H 3024-7) SOPHY (test code = SOPHY) Performed at: [facility] [id number] Director: Van Mesa MD, Phone: [phone] Lab Interpretation Abnormal (test code = 22813-9) [facility] [id number] 08:07:00 Test Item Value Reference Interpretation Comments Range Glucose (test code = 98 mg/dL 65-99 2345-7) BUN (test code = 25 mg/dL 8-27 3094-0) Creatinine (test 1.34 mg/dL 0.57-1 H code = 2160-0) EGFR Non-Afr. 36 mL/min/1.73 See_Comment L [Automated message] Palestinian (test code The syst em which = 5936) generated this result transmit sea reference range : >=59. The refer ence range was not u sed to interpret th is result as normal/abnormal . EGFR 41 mL/min/1.73 See_Comment L In accordan ce with Palestinian (test code recommen dations from = 1539) the NKF-ASN Tas k force, [facility] is in the process of updating its eG FR calculation to the 2020 CKD-EPI creatinine equa tion that estimates kidney function without a race variable. [Auto mated message] The sy stem which generated this result transmit sea reference range : >=59. The refer ence range was not u sed to interpret th is result as normal/abnormal . BUN/creatinine ratio 12-28 (test code = 3097-3) Sodium (test code = 140 mmol/L 213-159 2079-2) Potassium (test code 5.5 mmol/L 3.5-5.2 H = 2823-3) Chloride (test code 102 mmol/L 96-106 = 2075-0) CO2 (test code = 22 mmol/L 20-29 8-9) Calcium (test code = 11.7 mg/dL 8.7-10.3 H 44273-9) Protein (test code = 7.0 g/dL 6-8.5 2885-2) Albumin, S (test 4.4 g/dL 3.6-4.6 code = 1751-7) Globulin, total 2.6 g/dL 1.5-4.5 (test code = 30038-7) Albumin/globulin 1.2-2.2 ratio (test code = 1759-0) Total bilirubin 0.4 mg/dL 0-1.2 (test code = 1975-2) Alkaline phosphatase See_Comment Ple ase note (test code = 6768-6) referen ce interval change [Autom ated message] The sy stem which generated this result transmit sea reference range : 44 - 121 IU/L. The reference range was not used to interpret this result as normal/abnormal . AST (test code = See_Comment H [Automated message] 192-8) The system Sudiksha generated this result transmit sea reference range : 0 - 40 IU/L. The reference range was not used to interpret this result as normal/abnormal . ALT (test code = See_Comment [Automated message] 1742-6) The system Sudiksha generated this result transmit sea reference range : 0 - 32 IU/L. The reference range was not used to interpret this result as normal/abnormal . SOPHY (test code = Performed at: SOPHY) - [facility] [id number] [place], [place] [id number] Director: Van Mesa MD, Phone: [phone] Lab Interpretation Abnormal (test code = 24288-7) [facility] with platelet and [id number] 08:07:00 Test Item Value Reference Range Interpretation Comments WBC (test code = See_Comment [Automated 6690-2) message] The system which generated this result transmit sea reference range : 3.4 - 10.8 x10E3/uL. The reference range was not used to interpret this result as normal/abnormal . RBC (test code = See_Comment [Automated 789-8) message] The system which generated this result transmit sea reference range : 3.77 - 5.28 x10E6/uL. The reference range was not used to interpret this result as normal/abnormal . HGB (test code = 11.9 g/dL 11.1-15.9 718-7) HCT (test code = 36.9 % 34-46.6 4544-3) MCV (test code = 90 fL 79-97 787-2) MCH (test code = 29.1 pg 26.6-33 785-6) MCHC (test code = 32.2 g/dL 31.5-35.7 786-4) RDW (test code = 12.6 % 11.7-15.4 788-0) Platelet count See_Comment [Automated (test code = 777-3) message] The system which generated this result transmit sea reference range : 150 - 450 x10E3/uL. The reference range was not used to interpret this result as normal/abnormal . Neutrophils (test 75 % Not Estab. code = 770-8) Lymphocytes (test 16 % Not Estab. code = 736-9) Monocytes (test 6 % Not Estab. code = 5905-5) Eosinophils (test 2 % Not Estab. code = 713-8) Basophils (test 1 % Not Estab. code = 706-2) Neutrophils, See_Comment [Automated absolute (test code message] The = 751-8) system which generated this result transmit sea reference range : 1.4 - 7.0 x10E3/uL. The reference range was not used to interpret this result as normal/abnormal . Lymphocytes, See_Comment [Automated absolute (test code message] The = 731-0) system which generated this result transmit sea reference range : 0.7 - 3.1 x10E3/uL. The reference range was not used to interpret this result as normal/abnormal . Monocytes, absolute See_Comment [Automa sea (test code = 742-7) message] The system which generated this result transmit sea reference range : 0.1 - 0.9 x10E3/uL. The reference range was not used to interpret this result as normal/abnormal . Eosinophils, See_Comment [Automated absolute (test code message] The = 711-2) system which generated this result transmit sea reference range : 0.0 - 0.4 x10E3/uL. The reference range was not used to interpret this result as normal/abnormal . Basophils, absolute See_Comment [Automa sea (test code = 704-7) message] The system which generated this result transmit sea reference range : 0.0 - 0.2 x10E3/uL. The reference range was not used to interpret this result as normal/abnormal . Immature 0 % Not Estab. granulocytes (test code = 41754-4) Immature See_Comment [Automated granulocytes, message] The absolute (test code system w [facility] = 18503-8) generated this result transmit sea reference range : 0.0 - 0.1 x10E3/uL. The reference range was not used to interpret this result as normal/abnormal . SOPHY (test code = Performed at: SOPHY) - [facility] [address] [id number] Director: Van Mesa MD, Phone: [phone] [facility]
[2022-03-23] MEDS ORDERED: LIDOCAINE 1% W/EPI 1:100,000 MDV 50 ML VIAL ONE (05:34)
[2022-03-23 05:57] LABS: Absolute Lymphocytes (CBC) 0.7 K/uL (0.7-4.9); Hematocrit 22.8 % (36.0-45.0); Lymphocytes % 10.4 % (15.3-44.8); MPV 7.1 fL (7.6-11.3); RBC Red Blood Cell Count 2.62 M/uL (3.86-4.86)
[2022-03-23 06:09] LABS: Potassium 3.8 mmol/L (3.5-5.1)
[2022-03-23] MEDS ORDERED: BACI/NEOMYCIN/POLY OINT 15GM TOP ONE (06:28)
--- NOTE | 2022-03-23 07:00 | EDPHYS ---
Physician Documentation [facility] Name: Heidy Saucedo Age: 86 yrs Sex: Female : 1935 Arrival Date: 03/23/2022 Time: 05:23 Bed 6 Private MD: ED Physician Bradly Bowen HPI: 03/23 05:24 This 86 yrs old Female presents to ER via Unassigned with complaints of Fall. ms3 05:24 86-year-old female with past medical history of hypertension and dementia presents via ms3 [facility] status post slip and fall just prior to arrival. Patient denies pain. Patient denies alleviating or inciting factors. Patient denies nausea, vomiting, diarrhea, shortness of breath, chest pain. Historical: - Allergies: 05:35 Unknown anesthesia; ha1 - PMHx: 05:35 Dementia; Hypertension; Diabetes mellitus; Alzheimer's disease; ha1 - Immunization history:: Adult Immunizations up to date. - Social history:: Smoking status: Patient denies any tobacco usage or history of. ROS: 05:24 Constitutional: Negative for fever, and chills. Neck: Negative for injury, pain, and ms3 swelling, Cardiovascular: Negative for chest pain, and palpitations. Respiratory: Negative for shortness of breath, cough, wheezing, and pleuritic chest pain, Abdomen/GI: Negative for abdominal pain, nausea, vomiting, diarrhea, and constipation. 05:24 Skin: Positive for laceration(s). 05:24 All other systems are negative. Exam: 05:24 Constitutional: This is a well developed, well nourished patient who is awake, alert, ms3 and in no acute distress. 05:24 Chest/axilla: Normal chest wall appearance and motion. Nontender with no deformity. Cardiovascular: Regular rate and rhythm with a normal S1 and S2. No gallops, murmurs, or rubs. Normal PMI, no JVD. No pulse deficits. Respiratory: Lungs have equal breath sounds bilaterally, clear to auscultation and percussion. No rales, rhonchi or wheezes noted. No increased work of breathing, no retractions or nasal flaring. Abdomen/GI: Soft, non-tender, with normal bowel sounds. No distension or tympany. No guarding or rebound. No evidence of tenderness throughout. Psych: Awake, alert, with orientation to person, place and time. Behavior, mood, and affect are within normal limits. 05:24 Head/face: Noted is a laceration(s), that is deep, 4 cm(s), of the forehead. Vital Signs: 05:35 BP 179 / 72; Pulse 65; Resp 17 S; Temp 97.8(A); Pulse Ox 96% on R/A; ha1 05:53 BP 181 / 61; Pulse 86; Resp 16 S; Pulse Ox 100% on R/A; aa9 06:29 BP 176 / 55; Pulse 84; Resp 18 S; Pulse Ox 96% on R/A; aa9 07:00 BP 170 / 48; Pulse 67; Resp 17; Pulse Ox 100% on R/A; jg9 Laceration: 06:08 Wound Repair of 4cm ( 1.6in ) subcutaneous laceration to right side of forehead. Distal ms3 neuro/vascular/tendon intact. Anesthesia: Local anesthetic administered with 4 mls of 1% lidocaine w/ Epi. Wound prep: Simple cleansing by me. Skin closed with 5 5-0 Prolene using simple sutures and sterile technique. Dressed with Neosporin, 4x4's. Patient tolerated well. MDM: 05:23 Patient medically screened. ms3 07:01 Differential diagnosis: Contusion of Hematoma on Laceration of Intracranial bleed-. ms3 Data reviewed: vital signs, nurses notes, lab test result(s), radiologic studies, and as a result, I will discharge patient. Counseling: I had a detailed discussion with the patient and/or guardian regarding: the historical points, exam findings, and any diagnostic results supporting the discharge/admit diagnosis, lab results, radiology results, the need for outpatient follow up, to return to the emergency department if symptoms worsen or persist or if there are any questions or concerns that arise at home. Special discussion: I discussed with the patient/guardian in detail that at this point there is no indication for admission to the hospital. It is understood, however, that if the symptoms persist or worsen the patient needs to return immediately for re-evaluation. ED course: Discussed labs and imaging with patient, her daughter, and her son. Patient follow-up with primary care physician in 5 days for suture removal. Patient's children understand and agree with plan. All questions were answered. Return precautions discussed to include worsening symptoms, or any other concerns.. 03/23 05:23 Order name: Basic Metabolic Panel; Complete Time: 06:09 ms3 03/23 05:23 Order name: CBC with Diff; Complete Time: 06:09 ms3 03/23 05:23 Order name: CT Head C Spine ms3 03/23 05:24 Order name: Labs collected and sent; Complete Time: 05:57 ms3 Administered Medications: 06:23 Drug: Vjvuvvmm-Vxvqptltyu-Weqjtafhy Ointment 1 application Route: Topical; Site: as6 affected area; 06:23 Follow up: Response: No adverse reaction as6 Disposition Summary: 03/23/22 07:00 Discharge Ordered Location: Home ms3 Condition: Stable ms3 Diagnosis - Laceration of right forehead ms3 - Fall on same level, unspecified ms3 - Anemia, unspecified ms3 Discharge Instructions: - Discharge Summary Sheet ms3 - Anemia ms3 - Facial Laceration ms3 Forms: - Medication Reconciliation Form ms3 - Thank You Letter ms3 - Antibiotic Education ms3 - Prescription Opioid Use ms3 Signatures: Dispatcher [employer] EDMS Bradly Bowen DO DO ms3 Rc Lynn RN RN as6 Shira Alexandre RN RN ha1
--- NOTE | 2022-03-23 07:00 | ER ---
Nurse's Notes [facility] Name: Heidy Saucedo Age: 86 yrs Sex: Female : 1935 Arrival Date: 03/23/2022 Time: 05:23 Bed 6 Private MD: Diagnosis: Laceration of right forehead;Fall on same level, unspecified;Anemia, unspecified Presentation: 03/23 05:30 Chief complaint: EMS states: pt. fell while going to the bathroom. pt. sustained a ha1 contusion to the right side of the face around the right cheek and right side of the forehead. Coronavirus screen: Vaccine status: Patient reports being unvaccinated. Ebola Screen: No symptoms or risks identified at this time. Risk Assessment: Do you want to hurt yourself or someone else? Patient reports no desire to harm self or others. Onset of symptoms was March 23, 2022. 05:30 Method Of Arrival: EMS: [facility] ha1 05:30 Acuity: KRISTAL 3 ha1 05:40 Initial Sepsis Screen: Does the patient meet any 2 criteria? No. Patient's initial ha1 sepsis screen is negative. Does the patient have a suspected source of infection? No. Patient's initial sepsis screen is negative. Triage Assessment: 05:35 General: Appears in no apparent distress. Behavior is calm, cooperative. Pain: Unable ha1 to use pain scale. FLACC scale score is 0 out of 10. history of dementia. does not answer properly. Historical: - Allergies: 05:35 Unknown anesthesia; ha1 - PMHx: 05:35 Dementia; Hypertension; Diabetes mellitus; Alzheimer's disease; ha1 - Immunization history:: Adult Immunizations up to date. - Social history:: Smoking status: Patient denies any tobacco usage or history of. Screenin:43 Abuse screen: Denies threats or abuse. Denies injuries from another. Nutritional aa9 screening: No deficits noted. Tuberculosis screening: No symptoms or risk factors identified. Fall Risk Fall in past 12 months (25 points). Assessment: 05:38 General: Appears uncomfortable, slender, Behavior is cooperative, appropriate for age. aa9 Pain: Unable to use pain scale. Patient is disoriented. Does not appear to understand pain scale. Patient appears quiet, withdrawn, FLACC scale score is 0 out of 10. Respiratory: Airway is patent Trachea midline Respiratory effort is even, unlabored, Respiratory pattern is regular, symmetrical. Derm: Wound noted forehead Other: dressed with wide band aid Bruising that is dark purple, on left ear, submental area and right submandibular area. 07:00 Reassessment: Patient appears in no apparent distress at this time. Patient and/or jg9 family updated on plan of care and expected duration. Pain level reassessed. Patient is alert, oriented x 3, equal unlabored respirations, skin warm/dry/pink. Vital Signs: 05:35 BP 179 / 72; Pulse 65; Resp 17 S; Temp 97.8(A); Pulse Ox 96% on R/A; ha1 05:53 BP 181 / 61; Pulse 86; Resp 16 S; Pulse Ox 100% on R/A; aa9 06:29 BP 176 / 55; Pulse 84; Resp 18 S; Pulse Ox 96% on R/A; aa9 07:00 BP 170 / 48; Pulse 67; Resp 17; Pulse Ox 100% on R/A; jg9 ED Course: 05:23 Patient arrived in ED. ms3 05:23 Bradly Bowen DO is Attending Physician. ms3 05:25 Rc Lynn, RN is Primary Nurse. as6 05:35 Triage completed. ha1 05:40 Arm band placed on right wrist. ha1 05:43 Bed in low position. Call light in reach. Adult w/ patient. aa9 05:46 CT Head C Spine In Process Unspecified. EDMS 05:57 Inserted saline lock: 20 gauge in left antecubital area, using aseptic technique. Blood as6 collected. 05:57 Assist provider with laceration repair on right side of forehead that was between 2.6 as6 to 7.5 cm using sutures. Set up tray. Performed by Bradly Bowen DO Patient tolerated well. 06:23 Dressings: Kerlix X 1; right side of forehead non-adherent dressing x 1 right side of as6 forehead. 06:48 Warm blanket given. aa9 07:14 IV discontinued. jg9 Administered Medications: 06:23 Drug: Dnitkbxl-Aaztdfvvyd-Zofxhbweo Ointment 1 application Route: Topical; Site: as6 affected area; 06:23 Follow up: Response: No adverse reaction as6 Medication: 07:14 VIS not applicable for this client. jg9 Outcome: 07:00 Discharge ordered by . ms3 07:13 Discharged to home via wheelchair, with family. jg9 07:13 Condition: stable 07:13 Discharge instructions given to patient, family, Instructed on discharge instructions, follow up and referral plans. Demonstrated understanding of instructions, follow-up care. 07:14 Patient left the ED. jg9 Signatures: Dispatcher [employer] EDMS Bradly Bowen DO DO ms3 Rc Lynn RN RN as6 Seema Butler RN RN jg9 Noni Castle RN RN aa9 Shira Alexandre RN RN ha1
[2022-03-23 07:39] VITALS: TEMP 97.8
[2022-03-23 08:03] VITALS: BP 170/48; O2SAT 100
--- NOTE | 2022-03-23 11:57 | RAD REPORT ---
EXAM DESCRIPTION: Head C Spine Mpr Wo Con CLINICAL HISTORY: 86 years Female fall TECHNIQUE: Noncontrast CT head and cervical spine with coronal and sagittal reformats. All CT scans at this facility use dose modulation, iterative reconstruction, and/or weight based dosing when appro priate to reduce radiation dose to as low as reasonably achievable. COMPARISON: 12/21/2021 FINDINGS: HEAD: Brain: Diffuse parenchymal volume loss. Chronic small vessel disease. No intracranial hemorrhage, mid line shift, mass or mass effect. No obvious large acute territorial infarction. Ventricles: No hydrocephalus. Orbits: Unremarkable. Sinus: Visualized portions are clear. Mastoid: clear Osseous: Unremarkable. Soft tissues: Mild left frontal scalp soft tissue swelling at the vertex with 6 mm subcutaneous hemat hugo. CERVICAL SPINE: Vertebra: No acute fracture. Degenerative change: Extensive multilevel degenerative changes are again noted. No high grade spinal canal stenosis. Alignment: Unchanged 3 mm anterolisthesis of C3. Soft tissues: Unremarkable. Lungs: Visualized lung apices are clear. IMPRESSION: Head: 1. No acute intracranial findings. 2. Mild left frontal scalp soft tissue swelling at the vertex with 6 mm subcutaneous hematoma. 3. No acute fracture. Cervical spine: 1. No acute cervical spine pathology. Electronically signed by: Sang Mendez MD 03/23/2022 6:56 AM CDT Due to temporary technical issues with the PACS/Fluency reporting system, reports are being signed by the in house radiologists without review as a courtesy to insure prompt reporting. The interpreting radiologist is fully responsible for the content of the report.
== END 2022-03-23 07:14 | disposition home or self-care (01) ==
LOC: ER 05:21
PROC: 0JQ10ZZ Repair Face Subcutaneous Tissue and Fascia, Open Approach (ICD-10-PCS; principal; 2022-03-23)
DX: S01.81XA Laceration without foreign body of other part of head, initial encounter (principal); D64.9 Anemia, unspecified; W18.30XA Fall on same level, unspecified, initial encounter; I10 Essential (primary) hypertension; G30.9 Alzheimer's disease, unspecified; F02.80 Dementia in other diseases classified elsewhere, unspecified severity, without behavioral disturbance, psychotic disturbance, mood disturbance, and anxiety
CPT/HCPCS: 36415; 70450; 72125; 80048; 85025; 99284

== ENCOUNTER 2022-04-17 07:14 | Inpatient (IN) | payer OTHER ==
--- OUTSIDE RECORDS SUMMARY | 2022-04-17 07:19 | XMS REPORT | Continuity of Care Document ---
:1935 Author Organization [facility] t Address [address] [place] [address] Care Team Providers Name Role Phone Nikki Pink MD Primary Care Physician [phone] Nikki Pink MD Attending Clinician [phone] TWILA WADSWORTH Attending Clinician Unavailable Payers Payer [...] Gait Gait Disease Active [facility] inst[facility]it instabilit 07-21 y y 00:00: Hospita 00 l Murmur, [...] [facility] Natural son Kidney cancer [facility] Social History Social Habit Start Date Stop Date Quantity Comments Source History [facility] Drinks History [facility] Alcohol intake 2021-07-10 2021-07-10 Current [facility] 00:[facility]:00 00:00:00 non-drinker of Hospital alcohol (finding) History [facility] 2020-09-11 2020-09-11 1 [facility] 00:00:00 00:00:00 Hospita l Tobacco use and 2018-11-16 2018-11-16 Smokeless tobacco [facility] exposure 00:00:00 00:00:00 non-user Hospital Sex Assigned At [birth year] [facility] Smoking Status Start Date Stop Date Source Never smoked tobacco [facility] Medications Ordered Filled Start Stop Current Ordering Indication Dosage Frequency Signature Comments Components Source Medication Medication Date Date Medication? Clinician (SIG) Name Name pantoprazol 2022- Yes [id number] 40mg Q.5D Take 1 Method[facility] e 02-09 tablet (40 st (PROTONIX) 00:00: 05:59 mg total) H ospita 40 MG EC 00 :00 by mouth 2 l tablet (two) times a day for 180 days. famotidine Yes [id number] 40mg QD Take 1 [facility] (PEPCID) 40 -05 tablet (40 st MG tablet 00:00: mg total) Hos ari 00 by mouth l nightly as needed for heartburn. amLODIPine Yes [id number] 10mg QD Take 1 M ethodi (NORVASC) -05 tablet (10 st 10 mg 00:00: mg total) Hospita tablet 00 by mouth l daily. sertraline Yes [id number] 50mg QD Take 1 M ethodi (Zoloft) 50 -05 tablet (50 st MG tablet 00:00: mg total) Hos ari 00 by mouth l daily. lisinopriL 2022- No [id number] 20mg Q.5D Take 1 [facility] (PRINIVIL) 01-13- tablet (20 st 20 mg 00:00: 04:59 mg total) Hospit a tablet 00 :00 by mouth 2 l (two) times a day. fenofibrate 2022- No [id number] 145mg QD Take 1 [facility] (TRICOR) 01-13-[address] 145 MG 00:00: 04:59 (145 mg Hospita tablet 00 :00 total) by l mouth daily. clonIDINE 2022- No [id number] .1mg Q24H Take 1 M ethodi (CATAPRES) 5-24 05-[address] 0.1 MG 00:00: 04:59 (0.1 mg Hospita tablet 00 :00 total) by l mouth daily as needed for high blood pressure (BP over 190/100 after recheck). pantoprazol 2021- No [id number] 40mg Q.5D Take 1 Methodi e 3-14 07-30 tablet (40 st (PROTONIX) 00:00: 00:00 mg total) H ospita 40 MG EC 00 :00 by mouth 2 l tablet (two) times a day for 180 days. levothyroxi 2022- No [id number] 75ug QD Take 1 Methodi ne 1-03 01-04 tablet (75 st (Synthroid) 00:00: 05:59 mcg total) Hospita 75 mcg 00 :00 by mouth l tablet daily. acetaminoph 2020-07 Yes [id number] 1{tbl} Q4H Take 1 M ethodi en-codeine 2-[address] (TYLENOL 09:01: mouth Hospita WITH 05 every 4 l CODEINE #3) (four) 300-30 mg hours as per tablet needed for moderate pain .acute pain. varicella-z 2020-07- No [id number] .5mL Inject 0.5 Methodi malia 2-30 12-[address] gE-AS01B, 00:00: 05:59 the Hospita PF, 00 :00 shoulder, l (Shingrix, thigh, or PF,) 50 buttocks mcg/0.5 mL once for 1 suspension dose. for Repeat reconstitut dose 2-6 ion IM months injection after first. pantoprazol 2021- No [id number] 40mg Q.5D Take 1 Methodi e 9-27 03-14 tablet (40 st (PROTONIX) 00:00: 00:00 mg total) H ospita 40 MG EC 00 :00 by mouth 2 l tablet (two) times a day for 180 days. famotidine 2021- No [id number] 40mg QD Take 1 [facility] (PEPCID) 40 7- 07- tablet (40 s t MG tablet 00:00: 00:00 mg total) Ho spita 00 :00 by mouth l nightly as needed for heartburn. amLODIPine 2021- No [id number] 10mg QD Take 1 [facility] (NORVASC) 01-09 tablet (10 st 10 mg 00:00: 00:00 mg total) Hospit a tablet 00 :00 by mouth l daily. lisinopriL 2021- No [id number] 20mg Q.5D Take 1 [facility] (PRINIVIL) 01-09 tablet (20 st 20 mg 00:00: 00:00 mg total) Hospit a tablet 00 :00 by mouth 2 l (two) times a day. sertraline 2021- No [id number] 50mg QD Take 1 [facility] (Zoloft) 50 01-09 tablet (50 s t MG tablet 00:00: 00:00 mg total) Ho spita 00 :00 by mouth l daily. fenofibrate 2021- No [id number] 145mg QD Take 1 [facility] (TRICOR) 01-[address] 145 MG 00:00: 00:00 (145 mg Hospita tablet 00 :00 total) by l mouth daily. clonIDINE 2021- No [id number] .1mg Q24H Take 1 M ethodi (CATAPRES) 01-[address] 0.1 MG 00:00: 00:00 (0.1 mg Hospita tablet 00 :00 total) by l mouth daily as needed for high blood pressure (BP over 190/100 after recheck). levothyroxi 2021- No [id number] 100ug QD Take 1 Methodi ne 01-[address] (SYNTHROID) 00:00: 00:00 (100 mcg H ospita 100 mcg 00 :00 total) by l tablet mouth daily. pantoprazol 2020- No [id number] 40mg Q.5D Take 1 Methodi e 01-09 tablet (40 st (PROTONIX) 00:00: 00:00 mg total) H ospita 40 MG EC 00 :00 by mouth 2 l tablet (two) times a day for 90 days. acetaminoph Yes [id number] 1000mg Q8H Take 2 Methodi en (Tylenol [...] HIGH-DOSE PF 2021-06-04 Completed Meth odist 00:00:00 [facility] FLUZONE HIGH-DOSE PF 2020-02-26 Completed [facility] odist 00:00:00 [facility] Pneumococcal 2020-02-16 Completed [facility] Polysaccharide 00:00:00 [facility] Pneumococcal 2019-07-21 Completed [facility] Conjugate 13-Valent 00:00:00 [facility] FLUZONE HIGH-DOSE PF 2019-04-20 Completed [facility]ist 00:00:00 [facility] Influenza, 2019-04-18 Completed [facility] Unspecified 00:00:00 [facility] Pneumococcal 2018-07-12 Completed [facility] Polysaccharide 00:00:00 Hospital Vital Signs Vital Name Observation Time Observation Value Comments Source Systolic blood 2021-07-10 14:58:00 138 mm[Hg] [facility] Hospital pressure Diastolic blood 2021-07-10 14:58:00 78 mm[Hg] [facility] pressure Heart rate 2021-07-10 14:58:00 73 /min [facility] Respiratory rate 2021-07-10 14:58:00 14 /min [facility] Body height 2021-07-10 14:58:00 154.9 cm [facility] Body weight 2021-07-10 14:58:00 44.453 kg [facility] BMI 2021-07-10 14:58:00 18.52 kg/m2 [facility] Procedures Procedure Date / Time Performing Clinician Source Performed HEMOGLOBIN A1C 2021-07-10 18:02:00 [place] [facility] [place] CBC WITH PLATELET AND 2021-07-10 18:02:00 Nikki Pink [facility] DIFFERENTIAL [place] COMPREHENSIVE METABOLIC 2021-07-10 18:02:00 Nikki Pink [facility] PANEL [place] TSH+FREE T4 2021-07-10 18:02:00 [facility] Vasquez CA REMOVAL IMPACTED 2021-07-10 16:17:56 [facility] CERUMEN IRRIGATION/LVG Vas[place] PHILIP Plan of Care Planned Activity Planned Date Details Comments Source Future Scheduled 2022-03-19 HE[facility]ITIS B [facility] Test 10:31:24 VACCINES (1 of 3 - 3-dose series) [code = HEPATITIS B VACCINES (1 of 3 - 3-dose series)] Future Scheduled 2022-03-19 COVID[facility] 10:31:24 (#1) [code = COVID-19 VACCINE (#1)] Future Scheduled 2022-03-19 DIABETES: RETINAL Method [facility] Test 10:31:24 EYE EXAM [code = DIABETES: RETINAL EYE EXAM] Future Scheduled 2022-03-19 SHINGLES VACCINES Method [facility] Test 10:31:24 (1 of 2) [code = SHINGLES VACCINES (1 of 2)] Future Scheduled 2022-03-19 DIABETIC FOOT EXAM [facility] Test 10:31:24 [code = DIABETIC FOOT EXAM] Future Scheduled 2022-03-19 INFLUENZA VACCINE Method [facility] Test 10:31:24 [code = INFLUENZA VACCINE] Encounters Start End Encounter Admission Attending Care Care Encounter Source Date/Time Date/Time Type Type Clinicians Facility Department ID 2022-02-09 2022-02-[address]1 [id number] Methodi 00:00:00 00:00:00 Nikki 13881.1.1 788 [facility] 3.430.2.7 Hospit a .3.988172 l .8 2022-02-07 2022-02-07 [address]1 [id number] Methodi 00:00:00 00:00:00 Nikki 01651.1.1 215 [facility] 3.430.2.7 Hospit a .3.985518 l .8 2022-01-09 2022-01-09 [address]1 [id number] 21 [id number] Methodi 00:00:00 00:00:00 Nikki 43088.1.1 960 [facility] 3.430.2.7 Hospit a .3.832563 l .8 2021-12-03 2021-12-03 [facility], 1.2.840.1 [id number] Methodi 00:00:00 00:00:[address] [place] 3.430.2.7 Hospit a .3.646084 l .8 2021-12-01 2021-12-01 Refill [place], 1.2.840.1 [id number] 21 [id number] Methodi 00:00:00 00:00:[address] [place] 3.430.2.7 Hospit a .3.291858 l .8 2021-09-22 2021-09-22 Refill [place], 1.2.840.1 [id number] 21 [id number] Methodi 00:00:00 00:00:[address] [place] 3.430.2.7 Hospit a .3.808386 l .8 2021-07-10 2021-07-[address] [facility], 1.2.840.1 [id number] 21 [id number] Methodi 09:00:00 10:16:28 Visit Nikki 27044.1.[address] [place] 3.430.2.7 Hospit a .3.529020 l .8 2021-07-10 2021-07-10 Travel 1.2.840.1 1.2.132.598 [id number] Methodi 00:00:00 00:00:[address] 3.430.2.7 0.2.7.3.698 Ho spita .3.630363 084.8 l .8 2021-06-09 [facility] [id number] [facility] [id number] Methodi 00:00:00 00:00:[address] [place] 3.430.2.7 Hospit a .3.708201 l .8 2021-04-26 2021-04-26 Refill [place], 1.2.840.1 [id number] 21 [id number] Methodi 00:00:00 00:00:[address] [place] 3.430.2.7 Hospit a .3.456999 l .8 2021-03-31 2021-03-31 Refill Pink, 1.2.840.1 [id number] 21 [id number] Methodi 00:00:00 00:00:[address] [place] 3.430.2.7 Hospit a .3.438443 l .8 2020-12-05 2020-12-05 Outpatient [facility] [id number] [place] 00:00:00 00:00:00 NIKKI [address] 2020-09-11 2020-09-11 Outpatient [facility] [id number] [place] 00:00:00 00:00:00 TWILA [address] 2020-09-11 2020-09-11 Outpatient [facility] [id number] [place] 00:00:00 00:00:00 TWILA [address] 2020-09-11 2020-09-11 Outpatient [facility] [id number] [place] 00:00:00 00:00:00 TWILA [address] 2020-09-04 2020-09-04 Outpatient [facility] [id number] [place] 00:00:00 00:00:00 NIKKI [address] 2020-08-22 2020-08-22 Outpatient [facility] [id number] [place] 00:00:00 00:00:[address] 2020-02-06 2020-02-06 Outpatient [facility] [id number] [place] 00:00:00 00:00:00 NIKKI [address] 2019-11-03 2019-11-03 Outpatient [facility] [id number] [place] 00:00:00 00:00:00 NIKKI [address] Results Test Description Test Time Test Comments Results Result Comments Source Hemoglobin A1c 2021-07-11 11:09:00 Test Item Value Reference Range Interpretation Comme nts Hemoglobin A1C (test code 5.0 % 4.8-5.6 P rediabetes: 5.7 - 6.4 = 4548-4) Diabetes: >6.4 Glycemic control for pilar lts with diabetes: <7.0 SOPHY (test code = SOPHY) Performed at: [facility] [id number] Director: Van Mesa MD, Phone: [phone] [facility] [id number] 09:07:00 Test Item Value Reference Range Interpretation Comments TSH (test code = See_Comment L [Automated 10759-2) message] The system which generated this result transmitted reference range : 0.450 - 4.500 uIU/mL. The reference range was not used to interpret this result as normal/abnormal . T4, free (test code = 2.44 ng/dL 0.82-1.77 H 3024-7) SOPHY (test code = SOPHY) Performed at: [facility] [id number] Director: Van Mesa MD, Phone: [phone] Lab Interpretation Abnormal (test code = 05984-3) [facility] [id number] 08:07:00 Test Item Value Reference Interpretation Comments Range Glucose (test code = 98 mg/dL 65-99 2345-7) BUN (test code = 25 mg/dL 8-27 3094-0) Creatinine (test 1.34 mg/dL 0.57-1 H code = 2160-0) EGFR Non-Afr. 36 mL/min/1.73 See_Comment L [Automated message] Citizen [place] (test code The syst em which = 9697) generated this result transmit sea reference range : >=59. The refer ence range was not u sed to interpret th is result as normal/abnormal . EGFR 41 mL/min/1.73 See_Comment L In accordan ce with Citizen Of [place] (test code recommen dations from = 6649) the NKF-ASN Tas k force, [facility] p [...] 3097-3) Sodium (test code = 140 mmol/L 096-627 1411-2) Potassium (test code 5.5 mmol/L 3.5-5.2 H = 2823-3) Chloride (test code 102 mmol/L 96-106 = 2075-0) CO2 (test code = 22 mmol/L 20-29 2028-9) Calcium (test code = 11.7 mg/dL 8.7-10.3 H 29638-7) Protein (test code = 7.0 g/dL 6-8.5 2885-2) Albumin, S (test 4.4 g/dL 3.6-4.6 code = 1751-7) Globulin, total 2.6 g/dL 1.5-4.5 (test code = 10288-9) Albumin/globulin 1.2-2.2 ratio (test code = 1759-0) Total bilirubin 0.4 mg/dL 0-1.2 (test code = 1974-2) Alkaline phosphatase See_Comment Plea se note (test code = 6768-6) referen ce interval change [Autom ated message] The sy stem which generated this result transmit sea reference range : 44 - 121 IU/L. The reference range was not used to interpret this result as normal/abnormal . AST (test code = See_Comment H [Automated message] 1920-8) The system [employer] generated this result transmit sea reference range : 0 - 40 IU/L. The reference range was not used to interpret this result as normal/abnormal . ALT (test code = See_Comment [Automated message] 1742-6) The system [employer] generated this result transmit sea reference range : 0 - 32 IU/L. The reference range was not used to interpret this result as normal/abnormal . SOPHY (test code = Performed at: SOPHY) - [facility] [address] [id number] Director: Van Mesa MD, Phone: [phone] Lab Interpretation Abnormal (test code = 83982-0) [facility] with platelet and [id number] 08:07:00 Test Item Value Reference Range Interpretation Comments WBC (test code = See_Comment [Automated 4892-2) message] The system which generated this result [...] % Not Estab. granulocytes (test code = 80554-1) Immature See_Comment [Automated granulocytes, message] The absolute (test code system [facility] = 11204-7) generated this result transmit sea reference range : 0.0 - 0.1 x10E3/uL. The reference range was not used to interpret this result as normal/abnormal . SOPHY (test code = Performed at: SOPHY) - [facility] [id number] [place], [place] [id number] Director: Van Mesa MD, Phone: [phone] [facility]
[2022-04-17 08:04] LABS: Absolute Lymphocytes (CBC) 0.5 K/uL (0.7-4.9); Lymphocytes % 4.6 % (15.3-44.8); MCV 88.5 fL (80-100); MPV 7.7 fL (7.6-11.3); RBC Red Blood Cell Count 2.49 M/uL (3.86-4.86)
--- NOTE | 2022-04-17 08:17 | RAD REPORT ---
EXAM DESCRIPTION: RAD - Chest Single View - 04/17/2022 8:04 am CLINICAL HISTORY: RUE/Facial paresthesia COMPARISON: Two view chest 11/02/2018, right shoulder 12/21/2021, left humerus 08/27/2020 TECHNIQUE: AP portable chest image was obtained 04/17/2022 8:04 am . FINDINGS: Chronic interstitial lung disease is present with no focal consolidation. Retrocardiac lef t base is more difficult to evaluate. Minimal left base infiltrate is not excluded and can be correla sea with clinical findings. No failure or volume overload. Heart and vasculature are normal. No measurable pleural effusion and no pneumothorax. No acute aorti c findings. Fracture of the left humerus at the surgical neck is present. There is impaction at the fracture site . No pathologic change. Fracture dates back to 2020. A more significant proximal right humerus fractu re is present with the shaft dislocated medial to the remnant humeral head. Numerous small bone fragm ents or soft tissue calcifications are present. The shoulder joint is mostly obscured from view. The displacement of the shaft relative to the humeral head does appear to be new from the December 21 imaging . IMPRESSION: No acute cardiopulmonary process confirmed. Retrocardiac left base assessment is limited . Correlation is needed regarding any exam findings in the left base. Bilateral proximal humerus fractures. These are old but the medial displacement of the right humeral shaft is new from a December 21 examination.
[2022-04-17 08:24] LABS: Potassium 3.5 mmol/L (3.5-5.1); Troponin High Sensitivity 34.9 pg/mL (<58.9)
[2022-04-17] MEDS ORDERED: FUROSEMIDE 20 MG/ 2ML VIAL ONE ×2 (08:31→09:00)
--- NOTE | 2022-04-17 08:40 | RAD REPORT ---
EXAM DESCRIPTION: CT - CTHCSPWOC - 04/17/2022 8:13 am CLINICAL HISTORY: facial trauma from falling, head and neck injury COMPARISON: Head C Spine Mpr Wo Con dated 03/23/2022; Head C Spine Mpr Wo Con dated 09/18/2021 TECHNIQUE: Axial 5 mm thick images of the head were obtained. Axial 2 mm thick images of the cervic al spine were obtained with sagittal and coronal reconstruction images generated and reviewed. All CT scans are performed using dose optimization technique as appropriate and may include automated exposure control or mA/KV adjustment according to patient size. FINDINGS: No intracranial hemorrhage, mass, edema or acute intracranial finding. No suspicion for ac andreafski infarction. No cortical edema or sulcal effacement. Atrophy changes are mild, bordering on modera te for age with moderate severity chronic ischemic change throughout the cerebral white matter and li mark in the brainstem. Ventricles are in proportion to the volume loss. Intracranial findings are sta ble from March 23 imaging. Mastoid air cells and paranasal sinuses are clear. No globe or orbit a bnormality seen. No measurable scalp hematoma. No fracture of the skullbase or cranial vault. Cervical bodies are normal in height. Approximately 3 mm anterior subluxation C3 and C4 noted stable from the 2 prior examinations. There is a very slight retrolisthesis of C5 on C6 also stable. Promine nt disc space narrowing present at C3-4, C4-5, C5-6 and C6-7. Endplate spurring changes are present. Bony foraminal encroachment seen at multiple levels. No fracture or acute bony abnormality. 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 Lateral masses of C1 are normally positioned to the sk ullbase occipital condyles. The counter clockwise rotation results in the right lateral mass C1 poste riorly position to the C2 body by a 4 mm. Similar anterior displacement of 4 mm noted on the left umberto e lateral mass. On reviewing of the 2 prior examinations, March 23 imaging shows more neutral pos itioning. The same degree of rotary subluxation is noted on the September 18 examination. Acute ligamento us injury is not suspected. The patient likely has ligament laxity. Central canal detail is inherentl y limited. No paraspinal mass or hematoma. IMPRESSION: Atrophy and chronic ischemic changes are present but no hemorrhage or acute intracranial finding. Atrophy and chronic ischemic changes match the prior imaging. No evidence for acute infarction as a t parish visitor for the fall. Very advanced cervical spine degenerative changes are present as detailed in the body of the report. An acute process is not confirmed.
--- NOTE | 2022-04-17 08:55 | ER ---
Nurse's Notes [facility] Name: Heidy Saucedo Age: 86 yrs Sex: Female : 1935 Arrival Date: 04/17/2022 Time: 07:17 Bed 2 Private MD: Diagnosis: Shortness of breath;Acute respiratory failure with hypoxia-64% RA at home by EMS Presentation: 04/17 07:17 Chief complaint: EMS states: Toned out by family for "making a weird sound". On arrival jl7 pt was 64% on room air, placed on NRB and O2 went to 70%, placed on CPap and O2 came up to 91%. Pt with diffuse rhonchi, old bruising to left ear, and right side of face, family reports pt refuses to use walker and falls frequently. Swelling to bilateral arms from elbow to fingers with multiple abrasions noted. 07:17 Coronavirus screen: At this time, the client does not indicate any symptoms associated jl7 with coronavirus-19. Ebola Screen: No symptoms or risks identified at this time. Initial Sepsis Screen: Does the patient meet any 2 criteria? No. Patient's initial sepsis screen is negative. Does the patient have a suspected source of infection? No. Patient's initial sepsis screen is negative. Risk Assessment: Do you want to hurt yourself or someone else? Patient reports no desire to harm self or others. Onset of symptoms is unknown. Care prior to arrival: IV initiated. 20 GA, in the left antecubital area, Oxygen administered. via CPAP or BiPAP. 07:17 Method Of Arrival: EMS: [facility] 07:17 Acuity: KRISTAL 2 jl7 Triage Assessment: 07:17 General: Appears distressed, uncomfortable, slender, unkempt, Behavior is restless. jl7 Pain: Unable to use pain scale. Does not appear to understand pain scale. Patient appears to be grimacing, to be moaning. Neuro: Level of Consciousness is awake, alert, Oriented to none. Cardiovascular: Patient's skin is warm and dry. Rhythm is regular. Respiratory: Reports Pt non-verbal, does not report any discomfort Airway is patent Respiratory effort is even, labored, with retractions, Respiratory pattern is symmetrical, Onset: The symptoms/episode began/occurred at an unknown time. the patient has moderate shortness of breath. Derm: Skin is fragile, is thin, with poor turgor Bruising that is dark purple, brown, green, yellow, on face, left ear and neck. Historical: - Allergies: 08:17 Unknown anesthesia; jl7 - Home Meds: 08:17 Pepcid 40 mg oral tab 1 tab once daily [Active]; pantoprazole 40 mg oral TbEC 2 times jl7 per day [Active]; sertraline 50 mg oral tab 1 tab once daily [Active]; Synthroid 75 mcg oral tab 1 tab once daily [Active]; lisinopril 20 mg oral tab 1 tab BID [Active]; Iron CR 65 mg Oral [Active]; fenofibrate 145 mg daily Oral 1 tab once daily [Active]; amlodipine 10 mg tab 1 tab once daily [Active]; - PMHx: 08:17 Alzheimer's disease; Dementia; diabetes mellitus; High Cholesterol; Hypertension; jl7 Hypothyroidism; - PSHx: 08:17 Cholecystectomy; jl7 - Immunization history:: Client reports having NOT received the Covid vaccine. Pneumococcal vaccine is up to date, Flu vaccine is up to date. - Social history:: Smoking status: Patient denies any tobacco usage or history of. Screenin:00 Abuse screen: Denies threats or abuse. Denies injuries from another. Nutritional jl7 screening: No deficits noted. Tuberculosis screening: No symptoms or risk factors identified. Fall Risk IV access (20 points). Assessment: 07:17 General: see triage assessment. jl7 08:45 Reassessment: [place] cath placed 0845. jl7 09:45 Reassessment: US at bedside. jl7 10:30 Reassessment: Pt's sons, Albino and Parvez at bedside. Parvez reports pt is steadily jl7 declining, unable to really communicate. Family requesting to speak to someone about DNR and possible hospice. 12:10 General: Appears in no apparent distress. comfortable, Behavior is calm, cooperative, eh3 appropriate for age. Pain: Denies pain. Neuro: Swan Agitation-Sedation Scale (RASS): Level of Consciousness is obeys commands, confused. Cardiovascular: Capillary refill < 3 seconds Patient's skin is warm and dry. Cardiovascular: Rhythm is sinus rhythm. Respiratory: Airway is patent Respiratory effort is even, unlabored. 12:10 Respiratory: Breath sounds with rhonchi bilaterally. eh3 13:00 Reassessment: Patient and/or family updated on plan of care and expected duration. Pain eh3 level reassessed. Patient is alert, oriented x 3, equal unlabored respirations, skin warm/dry/pink. 14:00 Reassessment: Patient and/or family updated on plan of care and expected duration. Pain eh3 level reassessed. Patient is alert, oriented x 3, equal unlabored respirations, skin warm/dry/pink. 15:00 Reassessment: Patient and/or family updated on plan of care and expected duration. Pain eh3 level reassessed. Patient is alert, oriented x 3, equal unlabored respirations, skin warm/dry/pink. 16:00 Reassessment: Patient and/or family updated on plan of care and expected duration. Pain eh3 level reassessed. Patient is alert, oriented x 3, equal unlabored respirations, skin warm/dry/pink. Vital Signs: 07:17 BP 166 / 75; Pulse 100; Resp 19; Temp 98.7; Pulse Ox 90% on R/A; Weight 42 kg (M); jl7 09:00 BP 170 / 87; Pulse 90; Resp 19; Pulse Ox 99% on 2 lpm NC; jl7 10:43 BP 131 / 50; Pulse 80; Resp 15; Temp 97.6; Pulse Ox 95% on 2 lpm NC; jl7 11:15 BP 130 / 63; Pulse 79; Resp 15; Pulse Ox 100% on 2 lpm NC; jl7 12:00 BP 143 / 61; Pulse 91; Resp 18; Pulse Ox 97% on 2 lpm NC; 3 12:00 Height 5 ft. 7 in. (170.18 cm); eh3 13:00 BP 155 / 56; Pulse 81; Resp 17; Pulse Ox 100% on 2 lpm NC; eh3 14:00 BP 139 / 69; Pulse 74; Resp 19; Pulse Ox 100% on 2 lpm NC; 3 15:00 BP 151 / 62; Pulse 85; Resp 22; Pulse Ox 100% on 2 lpm NC; eh3 16:00 BP 152 / 60; Pulse 78; Resp 22; Pulse Ox 100% on 2 lpm NC; eh3 12:00 Body Mass Index 14.50 (42.00 kg, 170.18 cm) 3 ED Course: 07:17 Patient arrived in ED. eb 07:17 Arm band placed on right wrist. jl7 07:17 Patient has correct armband on for positive identification. Placed in gown. Bed in low jl7 position. Call light in reach. Side rails up X2. Client placed on continuous cardiac and pulse oximetry monitoring. NIBP monitoring applied. Warm blanket given. 07:18 Tyrell Pink MD is Attending Physician. kdr 07:30 Initial lab(s) drawn, by me, sent to lab. EKG done, by ED staff, reviewed by Tyrell Pink MD. Maintain EMS IV. Dressing intact. Good blood return noted. Site clean \\T\\ dry. Gauge \\T\\ site: 20 left AC. 08:00 Augusta Tam, RN is Primary Nurse. jl7 08:17 Triage completed. jl7 08:25 Troponin HS Sent. jl7 08:25 XRAY Chest (1 view) Sent. jl7 08:25 NT PRO-BNP Sent. jl7 08:25 CBC with Diff Sent. jl7 08:25 Basic Metabolic Panel Sent. jl7 08:45 [place]on cath inserted, using sterile technique, 16 Fr., by id, balloon inflated, to jl7 gravity drainage, urine specimen collected. 08:53 Akil Shen MD is Hospitalizing Provider. kdr 13:08 Primary Nurse role handed off by Augusta Tam, ROCIO jl7 13:12 Ana Rosa Valdivia, ROCIO is Primary Nurse. [facility] 16:01 No provider procedures requiring assistance completed. Patient admitted, IV remains in [address] Administered Medications: 08:58 Drug: Lasix (furosemide) 40 mg Route: IVP; Site: left antecubital; jl7 13:17 Follow up: Response: No adverse reaction [facility] Medication: 10:43 VIS not applicable for this client. jl7 Outcome: 08:54 Decision to Hospitalize by Provider. kdr 16:01 Admitted to Med/surg accompanied by tech, family with patient, via stretcher, room 424, [facility] with oxygen, with chart, Report called to Leslie Tong RN 16:01 Condition: stable 16:01 Instructed on the need for admit. 17:12 Patient left the ED. ss Signatures: Tyrell Pink MD MD Shima Carranza RN RN Augusta Tma RN RN jl7 Samina Mims Erin, RN RN 3 Corrections: (The following items were deleted from the chart) 08:21 08:17 Allergies: unknown haleigh; yoshi jl7 13:17 12:10 Cardiovascular: Rhythm is sinus rhythm with multifocal PVCs eh3 3
--- NOTE | 2022-04-17 08:55 | EDPHYS ---
Physician Documentation [facility] Name: Heidy Saucedo Age: 86 yrs Sex: Female : 1935 Arrival Date: 04/17/2022 Time: 07:17 Bed 2 Private MD: ED Physician Tyrell Pink HPI: 04/17 09:14 This 86 yrs old Female presents to ER via EMS with complaints of Breathing Difficulty. kdr 09:14 The patient has shortness of breath at rest, with light activity. Onset: The kdr symptoms/episode began/occurred at an unknown time. Duration: The symptoms are continuous, and are unchanged since they started. The patient's shortness of breath is aggravated by exertion, light activity. . 09:15 Severity of symptoms: At their worst the symptoms were mild moderate in the emergency kdr department the symptoms have improved mildly. The patient has experienced similar episodes in the past. The patient has not recently seen a physician. EMS was called to the patient's residence this morning when her family noticed she was short of breath. EMS assessed her and found her oxygen saturation to be approximately 64%. They put her on nonrebreather and her saturation improved to 70%. They subsequently put her on CPAP. Respirations improved on arrival in the ED her saturation was 90%.. Historical: - Allergies: 08:17 Unknown anesthesia; jl7 - Home Meds: 08:17 Pepcid 40 mg oral tab 1 tab once daily [Active]; pantoprazole 40 mg oral TbEC 2 times jl7 per day [Active]; sertraline 50 mg oral tab 1 tab once daily [Active]; Synthroid 75 mcg oral tab 1 tab once daily [Active]; lisinopril 20 mg oral tab 1 tab BID [Active]; Iron CR 65 mg Oral [Active]; fenofibrate 145 mg daily Oral 1 tab once daily [Active]; amlodipine 10 mg tab 1 tab once daily [Active]; - PMHx: 08:17 Alzheimer's disease; Dementia; diabetes mellitus; High Cholesterol; Hypertension; jl7 Hypothyroidism; - PSHx: 08:17 Cholecystectomy; jl7 - Immunization history:: Client reports having NOT received the Covid vaccine. Pneumococcal vaccine is up to date, Flu vaccine is up to date. - Social history:: Smoking status: Patient denies any tobacco usage or history of. ROS: 09:16 Constitutional: Negative for fever, chills, and weight loss, Eyes: Negative for injury, kdr pain, redness, and discharge, Neck: Negative for injury, pain, and swelling, Cardiovascular: Negative for chest pain, palpitations, and edema, Abdomen/GI: Negative for abdominal pain, nausea, vomiting, diarrhea, and constipation, Back: Negative for injury and pain, : Negative for injury, bleeding, discharge, and swelling, MS/Extremity: Negative for injury and deformity, Skin: Negative for injury, rash, and discoloration, Neuro: Negative for headache, weakness, numbness, tingling, and seizure activity. 09:16 Respiratory: Positive for dyspnea on exertion, shortness of breath, wheezing. 09:16 Skin: Positive for ecchymosis, Family states that the patient has a history of falling. She is supposed to use a walker when she gets up but apparently refuses to use a hat or a wheelchair. Subsequently she has been falling repeatedly and have significant ecchymosis around her face.. 09:16 Unable to obtain ROS due to baseline dementia, The patient is slow to respond and does not answer questions or effectively. The family relates that the patient appears to be at her baseline mental status. Exam: 08:28 ECG was reviewed by the Attending Physician. kdr 09:16 Constitutional: This is a well developed, cachectic patient in minimal distress. kdr Patient has multiple ecchymotic areas in her face. Patient has had recent fracture of her right proximal humerus. There is swelling to her right arm. The left upper extremity is also ecchymotic Head/Face: Normocephalic, with diffuse ecchymosis in her facial area Neck: Trachea midline, no thyromegaly or masses palpated, and no cervical lymphadenopathy. Supple, full range of motion without nuchal rigidity, or vertebral point tenderness. No Meningismus. Chest/axilla: Normal chest wall appearance and motion. Nontender with no deformity. No lesions are appreciated. Respiratory: Lungs have equal breath sounds bilaterally, clear to auscultation and percussion. No rales, rhonchi or wheezes noted. No increased work of breathing, no retractions or nasal flaring. Abdomen/GI: Soft, non-tender, with normal bowel sounds. No distension or tympany. No guarding or rebound. No evidence of tenderness throughout. Back: No spinal tenderness. No costovertebral tenderness. Full range of motion. Skin: Warm, dry with poor turgor. Diffuse ecchymosis with no rashes, no lesions, and no evidence of cellulitis. 09:16 Cardiovascular: Rate: normal, Rhythm: regular. Vital Signs: 07:17 BP 166 / 75; Pulse 100; Resp 19; Temp 98.7; Pulse Ox 90% on R/A; Weight 42 kg (M); 7 09:00 BP 170 / 87; Pulse 90; Resp 19; Pulse Ox 99% on 2 lpm NC; 7 10:43 BP 131 / 50; Pulse 80; Resp 15; Temp 97.6; Pulse Ox 95% on 2 lpm NC; 7 11:15 BP 130 / 63; Pulse 79; Resp 15; Pulse Ox 100% on 2 lpm NC; 7 12:00 BP 143 / 61; Pulse 91; Resp 18; Pulse Ox 97% on 2 lpm NC; 3 12:00 Height 5 ft. 7 in. (170.18 cm); 3 13:00 BP 155 / 56; Pulse 81; Resp 17; Pulse Ox 100% on 2 lpm NC; 3 14:00 BP 139 / 69; Pulse 74; Resp 19; Pulse Ox 100% on 2 lpm NC; 3 15:00 BP 151 / 62; Pulse 85; Resp 22; Pulse Ox 100% on 2 lpm NC; 3 16:00 BP 152 / 60; Pulse 78; Resp 22; Pulse Ox 100% on 2 lpm NC; 3 12:00 Body Mass Index 14.50 (42.00 kg, 170.18 cm) [facility] MDM: 08:54 Patient medically screened. [facility] 09:16 Data reviewed: vital signs, nurses notes, lab test result(s), radiologic studies. kdr Counseling: I had a detailed discussion with the patient and/or guardian regarding: the historical points, exam findings, and any diagnostic results supporting the discharge/admit diagnosis, lab results, radiology results. 04/17 07:26 Order name: Basic Metabolic Panel kdr 04/17 07:26 Order name: CBC with Diff kdr 04/17 07:26 Order name: NT PRO-BNP kdr 04/17 07:26 Order name: Troponin HS kdr 04/17 08:14 Order name: CBC with Automated Diff; Complete Time: 08:25 EDMS 04/17 08:25 Order name: Basic Metabolic Panel; Complete Time: 08:25 EDMS 04/17 07:26 Order name: XRAY Chest (1 view) kdr 04/17 07:42 Order name: CT Head C Spine kdr 04/17 08:25 Order name: Troponin High Sensitivity; Complete Time: 08:25 EDMS 04/17 08:25 Order name: NT PRO-BNP; Complete Time: 08:25 EDMS 04/17 09:37 Order name: SARS-COV-2 RT PCR (Document "Date of Onset" if Symptomatic) eb 04/17 10:30 Order name: SARS-COV-2 RT PCR; Complete Time: 13:47 EDMS 04/17 07:26 Order name: EKG; Complete Time: 07:27 kdr 04/17 07:26 Order name: Cardiac monitoring; Complete Time: 08:25 kdr 04/17 07:26 Order name: EKG - Nurse/Tech; Complete Time: 08:25 kdr 04/17 07:26 Order name: IV Saline Lock; Complete Time: 08:25 kdr 04/17 07:26 Order name: Labs collected and sent; Complete Time: 08:25 kdr 04/17 07:26 Order name: O2 Per Protocol; Complete Time: 08:25 kdr 04/17 07:26 Order name: O2 Sat Monitoring; Complete Time: 08:25 kdr 04/17 08:17 Order name: RAD; Complete Time: 08:25 EDMS 04/17 08:26 Order name: US Extremity Venous Unilateral Ltd kdr 04/17 08:40 Order name: CT; Complete Time: 08:44 EDMS 04/17 10:06 Order name: US; Complete Time: 13:47 EDMS EC:28 Rate is 90 beats/min. Rhythm is regular, Sinus Rhythm with No ectopy. QRS [place] is kdr Normal. GA interval is normal. QRS interval is normal. Clinical impression: NSR w/ Non-specific ST/T Changes. Administered Medications: 08:58 Drug: Lasix (furosemide) 40 mg Route: IVP; Site: left antecubital; jl7 13:17 Follow up: Response: No adverse reaction eh3 Disposition Summary: 04/17/22 08:54 Hospitalization Ordered Hospitalization Status: Inpatient Admission kdr Provider: Akil Shen kdr Condition: Fair kdr Problem: an acute exacerbation kdr Symptoms: are unchanged kdr Bed/Room Type: Standard kdr Location: Telemetry/MedSurg (Inpatient)(04/17/22 15:56) eb Room Assignment: 424(04/17/22 15:56) eb Diagnosis - Shortness of breath kdr - Acute respiratory failure with hypoxia - 64% RA at home by EMS kdr Forms: - Medication Reconciliation Form kdr - SBAR form kdr Signatures: Dispatcher [employer] EDMS Tyrell Pink MD MD kdr Leal, Jahala RN RN jl7 Samina Mims Erin RN eh3 Corrections: (The following items were deleted from the chart) 08:21 08:17 Allergies: unknown anisiea; yoshi jl7 09:16 09:15 EMS was called to the patient's residence this morning when her family noticed kdr she was short of breath. EMS assessed her and found her oxygen saturation to be approximately 64%. They put her on CPAP and her saturation improved to. kdr 15:14 08:54 Telemetry/MedSurg (Inpatient) kdr eb 15:14 08:54 kdr eb 15:56 15:14 [facility] ER HOLD eb eb 15:56 15:14 ERHOLD- eb eb
--- NOTE | 2022-04-17 10:05 | RAD REPORT ---
EXAM DESCRIPTION: US - UPPER EXTREMITY VENOUS UNILATE - 04/17/2022 9:53 am CLINICAL HISTORY: Right arm pain and swelling COMPARISON: None. TECHNIQUE: Real-time sonographic evaluation of the right upper extremity deep venous systems was per formed. FINDINGS: Exam was limited due to patient's sedation and limited range of motion. No jugular or subc lavian deep venous thrombosis identified. The right axial and brachial deep veins were more difficult to visualize due to limitations of the examination. Doppler evaluation shows flow through these vein s. Deep venous thrombosis in this portion of the arm is not suspected. The superficial basilic vein shows limited or no color flow on Doppler assessment. Vein could not be compressed IMPRESSION: Superficial venous thrombosis involving the basilic vein. The deep veins of the right upper extremity are limited in assessment as detailed. No deep venous thr ombosis is identifiable.
[2022-04-17] MEDS ORDERED: ONDANSETRON 4 MG/2 ML VIAL IV PRN (10:28)
[2022-04-17] MEDS ORDERED: ACETAMINOPHEN 500 MG TAB PO PRN (10:28)
[2022-04-17 16:54] VITALS: BMI 14.3
[2022-04-17] MEDS: FUROSEMIDE 40 MG/4 ML VIAL IV SCH (17:16)
[2022-04-17] MEDS: POTASSIUM 25 MEQ EFFERV TAB PO SCH (22:03)
--- NOTE | 2022-04-18 00:28 | CON ---
Date of Consultation: 04/17/2022 Reason For Consultation: Atrial fibrillation. History Of Present Illness: This is an 86-year-old female with advanced dementia, diabetes, hyperten stephie, and hypothyroidism. She was brought in with altered mental status. Family member was in the r oom as the patient was not responding, and she claimed that the patient's dementia became advanced la tely, and the patient is now to the point that she is not eating and drinking well in recent times. Past Medical History: As outlined above in HPI. Medication: Refer the reconciliation sheet for a detailed list. Allergies: NO KNOWN DRUG ALLERGIES. Family History: No premature coronary artery disease or cancer. Social History: She does not smoke or drink. Does not use any drugs. Review of Systems: All systems were reviewed, and negative except as mentioned in HPI. Physical Examination: Vital Signs: Reviewed. Head and Neck: Pupils are equal, reactive to light. No JVD. No cervical lymphadenopathy. Neck is supple. Thyroid is not enlarged. Lungs: Clear to auscultation bilaterally. No rhonchi, rales, or crackles. No accessory muscle use. Heart: Regular. No extra sounds. Abdomen: Soft, nontender. Bowel sounds positive. No organomegaly. No masses or hernia. Extremities: No clubbing or cyanosis. Intact pulses. Skin: No rash. Neurologic: Alert and awake. No acute focal deficits appreciated. Lymph Nodes: No cervical or axillary lymphadenopathy. Investigations: Creatinine is 1.57. Troponin is 34, and NT-proBNP is 2073, hemoglobin 7.6. Assessment And Recommendations: Elevated NT-proBNP, probably the patient has a history of congestive heart failure. At this point, she appears to be severely dehydrated and not eating and drinking carla y well. This patient has advanced dementia and I don't believe any cardiac workup is necessary. At this point, I recommend this patient to be managed in a palliative care manner due to advanced lory ia that is reversible. Cardiology will sign off on the case. SR/MODL Voice ID: [id number] Report ID: [id number]
--- NOTE | 2022-04-18 04:18 | P.HP ---
Certification for Inpatient Patient admitted to: Inpatient With expected LOS: >2 Midnights Patient will require the following post-hospital care: None Practitioner: I am a practitioner with admitting privileges, knowledge of patient current condition, hospital course, and medical plan of care. Services: Services provided to patient in accordance with Admission requirements found in Title 42 Section 412.3 of the Code of Federal Regulations Patient History Date of Service: 04/17/22 Reason for admission: Acute CHF; COPD; failure to thrive History of Present Illness: patient is a 86-year-old female who comes into the hospital difficult to arouse and unresponsive. She was short of breath and found to have COPD exacerbation/congestive heart failure exacerbation. Patient has been doing poorly for the last few days. She has been dehydrated and not eating like she used to. She started getting more unresponsive and the family brought her into the emergency room. Patient was severely hypoxic with O2 sats in the 60 percentile. They had placed her on CPAP in the emergency room as she was not improving with that non-rebreather. Her family was at bedside. Her son who stays with her is at bedside in the emergency room as is her son who is her medical power of attorney law clerk. After having a long talk with them they do not want her mother resuscitated. They want to try to proceed with hospice care at home. They state that she really does not do much in stays in bed for the last 4 months. They feel like she has given up. Patient will be admitted to the hospital for further evaluation. Will get case management consultation. Patient will be a do not attempt resuscitation. We will also arrange for hospice care. Allergies No Known Allergies Allergy (Verified 09/12/17 08:09) Home Medications: Ergocalciferol (Vitamin D2) [Vitamin D2] 1 cap PO SEECOM 11/03/18 Fenofibrate [Tricor*] 145 mg PO DAILY 11/03/18 Levothyroxine [Synthroid*] 75 mcg PO [id number] 11/03/18 Pantoprazole Sodium 40 mg PO BID 11/03/18 Sertraline HCl 50 mg PO BEDTIME 11/03/18 lisinopriL [Prinivil*] 20 mg PO BID 11/03/18 Amlodipine Besylate 10 mg PO DAILY 04/17/22 Famotidine 40 mg PO DAILY PRN 04/17/22 - Past Medical/Surgical History Has patient received pneumonia vaccine in the past: Yes Diabetic: Yes -: HTN -: hyperlipidemia -: hypothyrodism -: NIDDM -: goiter removal -: cholecystectomy - Family History Father Medical History: Hypertension - Social History Smoking Status: Never smoker Alcohol use: No CD- Drugs: No Caffeine use: No Place of Residence: Home Review of Systems 10-point ROS is otherwise unremarkable Physical Examination - Vital Signs Temperature: 97.4 F Blood Pressure: 139/60 Pulse: 71 Respirations: 16 Pulse Ox (%): 99 - Physical Exam General: Demented HEENT: PERRLA, Mucous membr. moist/pink, Other (bruising), EOMI, Sclerae nonicteric Neck: Supple, 2+ carotid pulse no bruit, No LAD, Without JVD or thyroid abnormality Respiratory: Diminished, Crackles/rales Cardiovascular: Regular rate/rhythm, Normal S1 S2, Systolic murmur Gastrointestinal: Normal bowel sounds, Soft and benign, Non-distended, No tenderness Musculoskeletal: No clubbing, No swelling, No tenderness Integumentary: No rashes Neurological: Abnormal gait, Abnormal speech, Abnormal strength, Abnormal tone, Dementia Lymphatics: No axilla or inguinal lymphadenopathy - Studies Laboratory Data (last 24 hrs) 04/17/22 07:45: WBC 10.60, Hgb 7.6 L, Hct 22.0 L, Plt Count 434 H 04/17/22 07:45: Sodium 133 L, Potassium 3.5, BUN 28 H, Creatinine 1.57 H, Glucose 112 H Assessment & Plan - Problems (Diagnosis) (1) Acute CHF Current Visit: Yes Status: Acute (2) Renal mass, right Current Visit: No Status: Acute (3) Chronic renal disease Current Visit: No Status: Chronic (4) Diabetes mellitus Current Visit: No Status: Chronic Qualifiers: (5) HTN (hypertension) Onset Date: 09/13/17 Current Visit: No Status: Chronic (6) Hyperlipemia Onset Date: 09/13/17 Current Visit: No Status: Chronic Qualifiers: (7) Hypothyroid Onset Date: 09/13/17 Current Visit: No Status: Chronic Qualifiers: - Plan Plan: 1. Wean off of the BiPAP 2. O2 per protocol 3. Nebs and steroids and diuresing 4. Monitor labs 5. Patient is a do not attempt resuscitation and we will talk with Case Management and arrange for hospice care at home per family's wishes 6. Gi DVT prophylaxis Discharge Plan: Other Plan to discharge in: Greater than 2 days - Advance Directives Does patient have a Living Will: Yes Does patient have a Durable POA for Healthcare: Yes - Code Status/Comfort Care Code Status Assessed: Yes Code Status: Full Code Critical Care: No Time Spent Managing PTS Care (In Minutes): 45
[2022-04-18 05:20] LABS: Absolute Lymphocytes (CBC) 0.6 K/uL (0.7-4.9); Lymphocytes % 4.9 % (15.3-44.8); MCV 88.6 fL (80-100); MPV 8.2 fL (7.6-11.3); RBC Red Blood Cell Count 2.35 M/uL (3.86-4.86)
[2022-04-18 05:27] LABS: Hematocrit 20.8 % (36.0-45.0)
[2022-04-18 05:44] LABS: Albumin 2.7 g/dL (3.4-5.0); Bilirubin Total 0.7 mg/dL (0.2-1.0); Magnesium 1.6 mg/dL (1.8-2.4); Phosphorus 2.8 mg/dL (2.5-4.9); Potassium 3.4 mmol/L (3.5-5.1); Protein, Total 5.7 g/dL (6.4-8.2)
[2022-04-18] MEDS ORDERED: MAGNESIUM SULFATE 1 gm IVPB 1 GM/100 ML BAG IV ONE (07:00)
--- NOTE | 2022-04-18 07:37 | RAD REPORT ---
EXAM DESCRIPTION: RAD - Chest Single View - 04/18/2022 6:51 am CLINICAL HISTORY: pneumonia Chest pain. COMPARISON: Chest Single View dated 04/17/2022; Chest Pa And Lat (2 Views) dated 11/02/2018; Chest Sin gle View dated 07/13/2018; Chest Pa And Lat (2 Views) dated 09/13/2017 FINDINGS: Portable technique limits examination quality. The lungs appear emphysematous. Opacity in the left retrocardiac region is present and could represen t infiltrate. The heart is mildly prominent. Fracture of the proximal right humerus is seen.Aortic at herosclerosis. IMPRESSION: Left retrocardiac opacity could represent pneumonia. CT of chest would be helpful for fu rther assessment.
[2022-04-18] MEDS: POTASSIUM 25 MEQ EFFERV TAB PO SCH ×2 (08:37→22:13)
[2022-04-18] MEDS: FUROSEMIDE 40 MG/4 ML VIAL IV SCH ×2 (08:37→16:35)
[2022-04-18] MEDS ORDERED: ENOXAPARIN 30 MG/0.3 ML SQ SCH (09:00)
--- NOTE | 2022-04-18 11:02 | EKG ---
Test Date: 2022-04-17 Test Time: 07:45:07 Quality Intern: EVANGELISTA MEASUREMENT RESULTS: Intervals: Rate: 90 NV: 140 QRSD: 102 QT: 366 QTc: 447 [place]: P: 88 NV: 140 QRS: 74 T: 238 INTERPRETIVE STATEMENTS: Normal sinus rhythm Right atrial enlargement Pulmonary disease pattern Left ventricular hypertrophy with repolarization abnormality Abnormal ECG Compared to ECG 11/02/2018 19:50:23 No significant changes Electronically Signed On 04-18-22 11:02:16 CDT by Robert Mata
[2022-04-18] MEDS ORDERED: FAMOTIDINE 20 MG TAB PO PRN (17:43)
[2022-04-18] MEDS ORDERED: DRISDOL (VITAMIN D=ERGOCALCIFEROL) 50000 UNIT CAP PO SCH (18:00)
[2022-04-18 18:54] LABS: Absolute Lymphocytes (CBC) 0.4 K/uL (0.7-4.9); Hematocrit 25.3 % (36.0-45.0); Lymphocytes % 2.7 % (15.3-44.8); MCV 89.3 fL (80-100); RBC Red Blood Cell Count 2.84 M/uL (3.86-4.86)
[2022-04-18] MEDS ORDERED: SCOPOLAMINE HYDROBROMIDE PATCH TD SCH (21:00)
[2022-04-18] MEDS: SERTRALINE HCL 50 MG TAB PO SCH (22:14)
[2022-04-18] MEDS: lisinopriL 20 MG TAB PO SCH (22:14)
[2022-04-18] MEDS: PANTOPRAZOLE 40MG TABLET PO SCH (22:14)
[2022-04-19] MEDS: LEVOTHYROXINE SOD 0.075 MG TAB PO SCH (05:18)
[2022-04-19 07:42] LABS: Absolute Lymphocytes (CBC) 0.2 K/uL (0.7-4.9); Hematocrit 18.9 % (36.0-45.0); MCV 88.4 fL (80-100); MPV 7.4 fL (7.6-11.3); RBC Red Blood Cell Count 2.13 M/uL (3.86-4.86)
[2022-04-19 08:43] LABS: ALT/SGPT 34 U/L (12-78); AST/SGOT 49 U/L (15-37); Albumin 2.4 g/dL (3.4-5.0); Alkaline Phosphatase 62 U/L (45-117); BUN Blood Urea Nitrogen 28 mg/dL (7-18); Bicarbonate 33 mmol/L (21-32); Bilirubin Total 0.6 mg/dL (0.2-1.0); Folic Acid, (Folate) > 20.0 ng/mL (3.1-17.5); Glomerular Filtration Rate 34 ml/min (=/>90); Glucose Level 105 mg/dL (74-106); Magnesium 1.6 mg/dL (1.8-2.4); NT PRO-BNP 2803 pg/mL (<450); Protein, Total 5.5 g/dL (6.4-8.2); Sodium Level 136 mmol/L (136-145)
[2022-04-19 08:47] LABS: Blood Morphology Comment NOT SEEN (NOT SEEN); Platelet Estimate ADEQ; Platelets, Giant 1+; White Blood Cell Scan OK (OK)
[2022-04-19] MEDS: FENOFIBRATE 160 MG TAB PO SCH (09:48)
[2022-04-19] MEDS: PANTOPRAZOLE 40MG TABLET PO SCH ×2 (09:48→21:13)
[2022-04-19] MEDS: AMLODIPINE 10 MG TAB PO SCH (09:48)
[2022-04-19] MEDS: POTASSIUM 25 MEQ EFFERV TAB PO SCH ×2 (09:48→21:13)
[2022-04-19] MEDS: FUROSEMIDE 40 MG/4 ML VIAL IV SCH ×2 (09:48→17:19)
[2022-04-19] MEDS: lisinopriL 20 MG TAB PO SCH ×2 (09:48→21:13)
[2022-04-19] MEDS ORDERED: NA CHLORIDE 0.9% 500 ML ONE (10:45)
[2022-04-19] MEDS: KCL 20 MEQ/100 mL IVPB 20 MEQ/100 ML BAG IV SCH ×2 (11:15→13:30)
[2022-04-19] MEDS ORDERED: MAGNESIUM SULFATE 1 gm IVPB 1 GM/100 ML BAG IV ONE (11:30)
[2022-04-19 17:29] LABS: Hematocrit 26.1 % (36.0-45.0)
[2022-04-19] MEDS: SERTRALINE HCL 50 MG TAB PO SCH (21:14)
[2022-04-20 03:45] LABS: Magnesium 1.8 mg/dL (1.8-2.4); Potassium 3.7 mmol/L (3.5-5.1)
[2022-04-20] MEDS: LEVOTHYROXINE SOD 0.075 MG TAB PO SCH (06:00)
[2022-04-20] MEDS ORDERED: MAGNESIUM SULFATE 1 gm IVPB 1 GM/100 ML BAG IV ONE (06:13)
--- NOTE | 2022-04-20 06:51 | ECHO ---
HEIGHT: 5 ft 7 in WEIGHT: 92 lb 0 oz DATE OF STUDY: 04/17/[address]: Akil Shen MD 2-DIMENSIONAL: YES M.MODE: YES DOPPLER: YES COLOR FLOW: YES TDS: NO PORTABLE: YES DEFINITY: NO BUBBLE STUDY: NO DIAGNOSIS: CONGESTIVE HEART FAILURE CARDIAC HISTORY: CATHERIZATION: NO SURGERY: NO PROSTHETIC VALVE: NO PACEMAKER: NO MEASUREMENTS (cm) DIASTOLIC (NORMALS) SYSTOLIC (NORMALS) IVSd 0.8 (0.6-1.2) LA Diam 3.3 (1.9-4.0) LVEF 61% LVIDd 4.0 (3.5-5.7) LVIDs 2.7 (2.0-3.5) %FS 32% LVPWd 0.9 (0.6-1.2) Ao Diam 2.2 (2.0-3.7) 2 DIMENSIONAL ASSESSMENT: RIGHT ATRIUM: NORMAL LEFT ATRIUM: ENLARGED RIGHT VENTRICLE: NORMAL LEFT VENTRICLE: NORMAL TRICUSPID VALVE: NORMAL MITRAL VALVE: MITRAL ANNULAR CALCIFICATION PULMONIC VALVE: NORMAL AORTIC VALVE: PERICARDIAL EFFUSION: NONE AORTIC ROOT: NORMAL LEFT VENTRICULAR WALL MOTION: NORMAL DOPPLER/COLOR FLOW: SEE BELOW. COMMENTS: NORMAL LEFT VENTRICULAR EJECTION FRACTION 55-60%. NORMAL WALL MOTION. MILD MITRAL AND AORTIC REGURGITATION. TECHNOLOGIST: Luis Manuel GRIFFIN
--- NOTE | 2022-04-20 07:37 | P.PN ---
Date of Service: 04/18/22 Subjective patient continues to improve. More awake today. Arrange for hospice care with case managemen- appreciated Physical Examination - Vital Signs reviewed - Physical Exam General: Demented Respiratory: Diminished, Crackles/rales Cardiovascular: Regular rate/rhythm, Normal S1 S2, Systolic murmur Gastrointestinal: Normal bowel sounds, Soft and benign, Non-distended, No tenderness Musculoskeletal: No clubbing, No swelling, No tenderness Neurological: Abnormal gait, Abnormal speech, Abnormal strength, Abnormal tone, Dementia Assessment & Plan - Problems (Diagnosis) (1) Acute CHF Current Visit: Yes Status: Acute (2) Renal mass, right Current Visit: No Status: Acute (3) Chronic renal disease Current Visit: No Status: Chronic (4) Diabetes mellitus Current Visit: No Status: Chronic (5) HTN (hypertension) Onset Date: 09/13/17 Current Visit: No Status: Chronic (6) Hyperlipemia Onset Date: 09/13/17 Current Visit: No Status: Chronic (7) Hypothyroid Onset Date: 09/13/17 Current Visit: No Status: Chronic - Plan Continue with plan of care as mentioned below: 1. Weaned off of BiPAP and on nasal cannula to keep sats greater than 90% 2. O2 per protocol 3. change to oral medications 4. Monitor labs 5. plan to discharge home with hospice care/patient is do not attempt resuscitation 6. strict blood pressure and blood sugar control 7. GI/DVT prophylaxis
--- NOTE | 2022-04-20 07:38 | P.PN ---
Date of Service: 04/19/22 Subjective patient appears to be clinically stable. however, her hemoglobin has dropped and family is wanting blood transfusion prior to discharge on hospice. Plan to discharge with hospice in the morning. Physical Examination - Vital Signs reviewed - Physical Exam General: Demented Respiratory: Clear bilaterally Cardiovascular: Regular rate/rhythm, Normal S1 S2, Systolic murmur Gastrointestinal: Normal bowel sounds, Soft and benign, Non-distended, No tenderness Musculoskeletal: No clubbing, No swelling, No tenderness Neurological: Abnormal gait, Abnormal speech, Abnormal strength, Abnormal tone, Dementia Assessment & Plan - Problems (Diagnosis) (1) Acute CHF Current Visit: Yes Status: Acute (2) Anemia, ABL Current Visit: No Status: Acute (3) Chronic renal disease/ Renal cell carcinoma Current Visit: No Status: Chronic (4) Diabetes mellitus Current Visit: No Status: Chronic (5) HTN (hypertension) Onset Date: 09/13/17 Current Visit: No Status: Chronic (6) Hyperlipemia Onset Date: 09/13/17 Current Visit: No Status: Chronic (7) Hypothyroid Onset Date: 09/13/17 Current Visit: No Status: Chronic - Plan Continue with plan of care as mentioned below: 1. O2 per NC 2. Hgb dropped-transfuse 1u 3. change to oral medications 4. Monitor labs 5. plan to discharge home with hospice care/patient is do not attempt resuscitation 6. strict blood pressure and blood sugar control 7. GI/DVT prophylaxis
--- NOTE | 2022-04-20 07:39 | P.DS ---
Discharge Date: 04/20/22 Disposition: HOSPICE-HOME Discharge Condition: FAIR Reason for Admission: Acute CHF; COPD; failure to thrive - Problems (1) Acute CHF Current Visit: Yes Status: Acute (2) Renal mass, right Current Visit: No Status: Acute (3) Chronic renal disease Current Visit: No Status: Chronic (4) Diabetes mellitus Current Visit: No Status: Chronic Qualifiers: (5) HTN (hypertension) Onset Date: 09/13/17 Current Visit: No Status: Chronic (6) Hyperlipemia Onset Date: 09/13/17 Current Visit: No Status: Chronic Qualifiers: (7) Hypothyroid Onset Date: 09/13/17 Current Visit: No Status: Chronic Qualifiers: Brief History of Present Illness: patient is a 86-year-old female who comes into the hospital difficult to arouse and unresponsive. She was short of breath and found to have COPD exacerbation/congestive heart failure exacerbation. Patient has been doing poorly for the last few days. She has been dehydrated and not eating like she used to. She started getting more unresponsive and the family brought her into the emergency room. Patient was severely hypoxic with O2 sats in the 60 percentile. They had placed her on CPAP in the emergency room as she was not improving with that non-rebreather. Her family was at bedside. Her son who stays with her is at bedside in the emergency room as is her son who is her medical power of senior stereo compiler team lead. After having a long talk with them they do not want her mother resuscitated. They want to try to proceed with hospice care at home. They state that she really does not do much in stays in bed for the last 4 months. They feel like she has given up. Patient will be admitted to the hospital for further evaluation. Will get case management consultation. Patient will be a do not attempt resuscitation. We will also arrange for hospice care. Hospital Course: Patient's long-term prognosis is poor. She has advanced dementia. She had renal cell carcinoma. Her hemoglobin has been on the low side as well. We did transfuse her 1 unit. Family is want to proceed with hospice care. Will discharge to hospice at this time. Vital Signs/Physical Exam: Temp Pulse Resp BP Pulse Ox 97.4 F 71 16 139/60 99 04/20/22 07:34 04/20/22 07:34 04/20/22 07:34 04/20/22 07:34 04/20/22 07:34 General: Demented Laboratory Data at Discharge: WBC 9.40 K/uL (4.3-10.9) 04/19/22 07:20 Hgb 8.9 g/dL (12.0-15.0) L D 04/19/22 17:17 Hct 26.1 % (36.0-45.0) L 04/19/22 17:17 Plt Count 236 K/uL (152-406) 04/19/22 07:20 Sodium 138 mmol/L (136-145) 04/20/22 03:05 Potassium 3.7 mmol/L (3.5-5.1) 04/20/22 03:05 BUN 28 mg/dL (7-18) H 04/20/22 03:05 Creatinine 1.47 mg/dL (0.55-1.3) H 04/20/22 03:05 Glucose 112 mg/dL (74-106) H 04/20/22 03:05 Phosphorus 2.8 mg/dL (2.5-4.9) 04/18/22 04:38 Magnesium 1.8 mg/dL (1.8-2.4) 04/20/22 03:05 Total Bilirubin 0.6 mg/dL (0.2-1.0) 04/19/22 07:20 AST 49 U/L (15-37) H 04/19/22 07:20 ALT 34 U/L (12-78) 04/19/22 07:20 Alkaline Phosphatase 62 U/L (45-117) 04/19/22 07:20 Triglycerides 64 mg/dL (<150) 04/18/22 04:38 Cholesterol 115 mg/dL (<200) 04/18/22 04:38 HDL Cholesterol 50 mg/dL (40-60) 04/18/22 04:38 Cholesterol/HDL Ratio 2.30 04/18/22 04:38 Home Medications: Ergocalciferol (Vitamin D2) [Vitamin D2] 1 cap PO SEECOM 11/03/18 Fenofibrate [Tricor*] 145 mg PO DAILY 11/03/18 Levothyroxine [Synthroid*] 75 mcg PO [id number] 11/03/18 Pantoprazole Sodium 40 mg PO BID 11/03/18 Sertraline HCl 50 mg PO BEDTIME 11/03/18 lisinopriL [Prinivil*] 20 mg PO BID 11/03/18 Amlodipine Besylate 10 mg PO DAILY 04/17/22 Famotidine 40 mg PO DAILY PRN 04/17/22 Physician Discharge Instructions: Discharge home with hospice care Diet: Regular Activity: Fall precautions Followup: [email or web address] [Primary Care Provider] - Time spent managing pt's care (in minutes): 20
[2022-04-20] MEDS ORDERED: KCL 20 MEQ/100 mL IVPB 20 MEQ/100 ML BAG IV SCH (09:00)
[2022-04-20 10:35] VITALS: O2SAT 94
[2022-04-20] MEDS: PANTOPRAZOLE 40MG TABLET PO SCH (10:52)
[2022-04-20] MEDS: AMLODIPINE 10 MG TAB PO SCH (10:52)
[2022-04-20] MEDS: POTASSIUM 25 MEQ EFFERV TAB PO SCH (10:52)
[2022-04-20] MEDS: FENOFIBRATE 160 MG TAB PO SCH (10:52)
[2022-04-20] MEDS: lisinopriL 20 MG TAB PO SCH (10:53)
[2022-04-20] MEDS: FUROSEMIDE 40 MG/4 ML VIAL IV SCH (10:53)
[2022-04-20 12:07] VITALS: TEMP 97.7
[2022-04-20 13:50] VITALS: BP 155/63
== END 2022-04-20 16:30 | disposition hospice, home (50) | DRG 291 ==
LOC: ER 07:14 → ERHOLD 10:28 → 4TH 16:16
PROVIDERS: ADMIT Hospitalist; ATTEND Hospitalist
PROC: 30233N1 Transfusion of Nonautologous Red Blood Cells into Peripheral Vein, Percutaneous Approach (ICD-10-PCS; principal; 2022-04-19)
DX: I13.0 Hypertensive heart and chronic kidney disease with heart failure and stage 1 through stage 4 chronic kidney disease, or unspecified chronic kidney disease (principal); I50.31 Acute diastolic (congestive) heart failure; J96.01 Acute respiratory failure with hypoxia; J44.1 Chronic obstructive pulmonary disease with (acute) exacerbation; D62 Acute posthemorrhagic anemia; C64.9 Malignant neoplasm of unspecified kidney, except renal pelvis; N18.9 Chronic kidney disease, unspecified; E11.22 Type 2 diabetes mellitus with diabetic chronic kidney disease; E86.0 Dehydration; E78.5 Hyperlipidemia, unspecified; E03.9 Hypothyroidism, unspecified; N28.89 Other specified disorders of kidney and ureter; F03.90 Unspecified dementia, unspecified severity, without behavioral disturbance, psychotic disturbance, mood disturbance, and anxiety; Z66 Do not resuscitate; Z51.5 Encounter for palliative care; Z90.49 Acquired absence of other specified parts of digestive tract; Z79.899 Other long term (current) drug therapy; Z28.310 Unvaccinated for COVID-19; Z79.890 Hormone replacement therapy; Z20.822 Contact with and (suspected) exposure to COVID-19
CPT/HCPCS: 36415; 51702; 70450; 71045; 72125; 80048; 80053; 80061; 82607; 82746; 83540; 83735; 83880; 84100; 84132; 84484; 85014; 85018; 85025; 85044; 86850; 86900; 86901; 93005; 93306; 93971; 96374; 99285; J1650; J1940; J3475; J3480; J7050; P9016; U0003